=== PATIENT | male | born 1955 | race African-American/Black ===

== ENCOUNTER 2023-03-13 14:16 | Outpatient (AMB) | payer BC, SELFPAY ==
--- NOTE | 2023-03-13 14:21 | HO.NEPHOV_ITS ---
HPI HPI Comments History of Present Illness Details I had the privilege of seeing Alcides in follow-up of his chronic kidney disease on a backdrop of diabetes mellitus, hypertension and proteinuria. He is employed and is active. He has a very strong family history of end-stage renal disease and expressed his fears of needing dialysis. He refrains from nonsteroidal anti-inflammatory use. He does not have any chest pain, shortness of breath, proximal nocturnal dyspnea, orthopnea, pedal edema, orthostatic symptoms, hematuria, dysuria. His blood sugar control is better but not optimal. His last serum creatinine has been around 1.5. He has not had any blood work or a very long time. He claims to be compliant with his medications. He denies any drug use. He maintains good hydration. He denied any active systemic symptoms. [facility] Medical History (Updated 03/13/23 @ 22:12 by Gary Schmidt MD) Hypertension Proteinuria T2DM (type 2 diabetes mellitus) Chronic kidney disease, stage 3a Surgical History (Updated 03/13/23 @ 14:27 by Ju Bautista MA) History of gastric bypass Family History (Updated 03/13/23 @ 14:28 by Ju Bautista MA) Brother Diabetes Kidney disease Mother Diabetes Social History (Updated 03/13/23 @ 14:26 by Ju Bautista MA) Alcohol intake: never Patient Tobacco Use Status: Never used Tobacco Vital Signs 03/13/23 14:22 Height 5 ft 8 in Weight 281 lb 4 oz BMI 42.8 BP 138/72 Blood Pressure Location Lt brachial Position Sitting Pulse 53 Pulse Source Pulse Oximeter Pulse Oximetry (%) 95 Oxygen Delivery Method Room Air Physical Exam Vital Signs: Last Vital Signs Pulse 53 03/13/23 14:22 BP 138/72 03/13/23 14:22 Pulse Ox 95 03/13/23 14:22 Oxygen Delivery Method Room Air 03/13/23 14:22 BMI result Body Mass Index 42.8 Const General: comfortable and no acute distress Orientation/consciousness: patient oriented x3 HEENT Head: Yes normocephalic Mouth: Normal oral and palatal mucosa present Eyes EOM: EOMs intact bilaterally Neck Neck: Yes supple Resp Auscultation: clear to auscultation bilaterally Cardio Jugular venous distension: no JVD Rate: regular rate GI Palpation (GI): Soft to palpation Auscultation: normal bowel sounds General: Yes no CVA tenderness Back/Spine/Pelvis Back: no CVA tenderness Skin General skin exam: no rashes or lesions noted Neuro General: patient oriented x3 and moves all extremities Extrem General: Yes no pedal edema Assessment & Plan Assessment & Plan (1) Hypertension: Code(s): I10 - Essential (primary) hypertension Qualifiers: Hypertension type: primary hypertension Qualified Code(s): I10 - Essential (primary) hypertension (2) Proteinuria: Code(s): R80.9 - Proteinuria, unspecified Qualifiers: Proteinuria type: other Qualified Code(s): R80.8 - Other proteinuria (3) Chronic kidney disease, stage 3a: Code(s): N18.31 - Chronic kidney disease, stage 3a (4) Diabetic nephropathy: Code(s): E11.21 - Type 2 diabetes mellitus with diabetic nephropathy Qualifiers: Diabetes mellitus type: type 2 Qualified Code(s): E11.21 - Type 2 diabetes mellitus with diabetic nephropathy Plan Alcides has stage 3 chronic kidney disease from diabetic nephropathy. His blood pressure needs to be maintained at goal. He is on angiotensin receptor winsome. He is tolerating Jardiance. He needs to lose weight. He avoids nonsteroidal anti-inflammatories. He maintains good hydration. I did not make any medication changes today. Follow-up lab work ordered. Answered all questions. Follow-up given. Orders: Orders Electrolytes Today I10 - Essential (primary) hypertension, N18.31 - Chronic kidney disease, stage 3a, R80.9 - Proteinuria, unspecified Creatinine Today I10 - Essential (primary) hypertension, N18.31 - Chronic kidney disease, stage 3a, R80.9 - Proteinuria, unspecified Protein Creatinine Ratio, Ur Today I10 - Essential (primary) hypertension, N18.31 - Chronic kidney disease, stage 3a, R80.9 - Proteinuria, unspecified Calcium Today I10 - Essential (primary) hypertension, N18.31 - Chronic kidney disease, stage 3a, R80.9 - Proteinuria, unspecified Blood Urea Nitrogen Today I10 - Essential (primary) hypertension, N18.31 - Chronic kidney disease, stage 3a, R80.9 - Proteinuria, unspecified Coding Level of Care Code Est Pt Level 4 (31150) Diagnoses Primary hypertension I10 Hypertension type: primary hypertension Other proteinuria R80.8 Proteinuria type: other Chronic kidney disease, stage 3a N18.31 Diabetic nephropathy associated with type 2 diabetes mellitus E11.21 Diabetes mellitus type: type 2 Results Reviewed Nephrology Results: No Data to Display
[2023-03-13 14:22] VITALS: BP 138/72; PULSE 53; O2SAT 95; BMI 42.8
== END 2023-03-13 14:58 | disposition home or self-care (01) ==
PROVIDERS: Visit Provider Internal Medicine Nephrology
DX: I10 Essential (primary) hypertension (principal); R80.8 Other proteinuria; N18.31 Chronic kidney disease, stage 3a; E11.21 Type 2 diabetes mellitus with diabetic nephropathy
CPT/HCPCS: 99214

== ENCOUNTER → 2023-03-13 14:16 | Outpatient (BNVA) | payer BC, SELFPAY | PROVIDERS: Visit Provider Internal Medicine Nephrology ==

== ENCOUNTER 2023-05-20 15:21 | Outpatient (REF) | payer BC, SELFPAY ==
[2023-05-20 17:32] LABS: Anion Gap 13 (12-20); Blood Urea Nitrogen 21 mg/dL (9-16); Calcium 9.3 mg/dL (8.4-10.2); Carbon Dioxide 26 mmol/L (22-29); Chloride 107 mmol/L (96-108); Estimated Glomerular Filt Rate 56; Potassium 3.9 mmol/L (3.3-5.1); Sodium 142 mmol/L (135-145)
== END 2023-05-20 15:22 | disposition home or self-care (01) ==
LOC: HO.HKASLDS 15:21
PROVIDERS: Visit Provider Internal Medicine Nephrology
DX: I10 Essential (primary) hypertension (principal); R80.9 Proteinuria, unspecified; N18.31 Chronic kidney disease, stage 3a
CPT/HCPCS: 36415; 80051; 82310; 82565; 84520

== ENCOUNTER 2023-06-05 13:57 | Outpatient (REF) | payer BC, SELFPAY ==
[2023-06-05 17:47] LABS: Creatinine Urine 63.98 mg/dL; Total Protein Urine Random 45 mg/dL (<12)
== END 2023-06-05 13:58 | disposition home or self-care (01) ==
LOC: HO.HKASLDS 13:57
PROVIDERS: Visit Provider Internal Medicine Nephrology
DX: I12.9 Hypertensive chronic kidney disease with stage 1 through stage 4 chronic kidney disease, or unspecified chronic kidney disease (principal); N18.31 Chronic kidney disease, stage 3a; R80.9 Proteinuria, unspecified
CPT/HCPCS: 82570; 84156

== ENCOUNTER 2023-07-01 14:47 | Outpatient (AMB) | payer BC, SELFPAY ==
[2023-07-01 14:53] VITALS: BP 138/80; PULSE 74; O2SAT 96; BMI 43.3
--- NOTE | 2023-07-01 14:53 | HO.NEPHOV ---
Vital Signs 07/01/23 14:53 Height 5 ft 8 in Weight 284 lb 8 oz BMI 43.3 BP 138/80 Blood Pressure Location Lt brachial Position Sitting Pulse 74 Pulse Source Pulse Oximeter Pulse Oximetry (%) 96 Oxygen Delivery Method Room Air Intake Visit Reasons: 3 mon follow up/ LVM Costumed Character Entertainer Required: No Accompanied by: Self / Same As Patient Allergies irbesartan Allergy (Verified 07/01/23 14:56) Unknown lactose Allergy (Verified 07/01/23 14:56) Unknown latex Allergy (Verified 07/01/23 14:56) Unknown lisinopril Allergy (Verified 07/01/23 14:56) Unknown naproxen Allergy (Verified 07/01/23 14:56) Unknown HPI Comments Details: I had the privilege of seeing Alcides in follow-up of his chronic kidney disease on a backdrop of diabetes mellitus, hypertension and proteinuria. He is employed and is active. He has a very strong family history of end-stage renal disease and expressed his fears of needing dialysis. He refrains from nonsteroidal anti-inflammatory use. He does not have any chest pain, shortness of breath, proximal nocturnal dyspnea, orthopnea, pedal edema, orthostatic symptoms, hematuria, dysuria. His blood sugar control is better but not optimal. His last serum creatinine has been around 1.5. He has not had any blood work or a very long time. He claims to be compliant with his medications. He denies any drug use. He maintains good hydration. He denied any active systemic symptoms [facility] Medical History (Updated 03/13/23 @ 22:12 by Gary Schmidt MD) Hypertension Proteinuria T2DM (type 2 diabetes mellitus) Chronic kidney disease, stage 3a Surgical History (Updated 03/13/23 @ 14:27 by Ju Bautista MA) History of gastric bypass Family History (Updated 03/13/23 @ 14:28 by Ju Bautista MA) Brother Diabetes Kidney disease Mother Diabetes Social History (Updated 03/13/23 @ 14:26 by Ju Bautista MA) Alcohol intake: never Patient Tobacco Use Status: Never used Tobacco Physical Exam Const General: comfortable and no acute distress Orientation/consciousness: patient oriented x3 HEENT Head: Yes normocephalic Mouth: Normal oral and palatal mucosa present Eyes EOM: EOMs intact bilaterally Neck Neck: Yes supple Resp Auscultation: clear to auscultation bilaterally Cardio Jugular venous distension: no JVD Rate: regular rate GI Palpation (GI): Soft to palpation Auscultation: normal bowel sounds General: Yes no CVA tenderness Back/Spine/Pelvis Back: no CVA tenderness Skin General skin exam: no rashes or lesions noted Neuro General: patient oriented x3 and moves all extremities Extrem General: Yes no pedal edema Results Reviewed Nephrology Results: Sodium 142 mmol/L (135-145) 05/20/23 Potassium 3.9 mmol/L (3.3-5.1) 05/20/23 Chloride 107 mmol/L (96-108) 05/20/23 Carbon Dioxide 26 mmol/L (22-29) 05/20/23 BUN 21 mg/dL (9-16) H 05/20/23 Creatinine 1.28 mg/dL (0.5-1.4) 05/20/23 Calcium 9.3 mg/dL (8.4-10.2) 05/20/23 Urine Creatinine 63.98 mg/dL 06/05/23 Protein/Creatinin Ratio 0.70 (<0.2) H 06/05/23 Assessment & Plan Assessment & Plan (1) Chronic kidney disease, stage 3a: Code(s): N18.31 - Chronic kidney disease, stage 3a Category: Medical (2) Proteinuria: Code(s): R80.9 - Proteinuria, unspecified Category: Medical Qualifiers: Proteinuria type: other Qualified Code(s): R80.8 - Other proteinuria (3) Hypertension: Code(s): I10 - Essential (primary) hypertension Category: Medical Qualifiers: Hypertension type: primary hypertension Qualified Code(s): I10 - Essential (primary) hypertension (4) Diabetic nephropathy: Code(s): E11.21 - Type 2 diabetes mellitus with diabetic nephropathy Category: Medical Qualifiers: Diabetes mellitus type: type 2 Qualified Code(s): E11.21 - Type 2 diabetes mellitus with diabetic nephropathy Plan Alcides has stage 3 chronic kidney disease from diabetic nephropathy. His blood pressure needs to be maintained at goal. He is on angiotensin receptor winsome. He is tolerating Farxiga. He needs to lose weight. I increased his losartan to 75 mg daily. He avoids nonsteroidal anti-inflammatories. He maintains good hydration. I did not make any other medication changes today. Follow-up lab work ordered. Answered all questions. Follow-up given. Orders: Orders Electrolytes Today E11.21 - Type 2 diabetes mellitus with diabetic nephropathy, I10 - Essential (primary) hypertension, N18.31 - Chronic kidney disease, stage 3a, R80.8 - Other proteinuria Blood Urea Nitrogen Today E11.21 - Type 2 diabetes mellitus with diabetic nephropathy, I10 - Essential (primary) hypertension, N18.31 - Chronic kidney disease, stage 3a, R80.8 - Other proteinuria Creatinine Today E11.21 - Type 2 diabetes mellitus with diabetic nephropathy, I10 - Essential (primary) hypertension, N18.31 - Chronic kidney disease, stage 3a, R80.8 - Other proteinuria Medications: New aspirin 81 mg PO DAILY 30 tabs 4RF dapagliflozin propanediol (Farxiga) 10 mg PO DAILY 30 tabs 4RF atorvastatin 40 mg PO DAILY 30 tabs 4RF clopidogrel 75 mg PO DAILY 30 tabs 4RF Changed From amlodipine 10 mg PO DAILY To amlodipine 10 mg PO DAILY 30 days 30 tabs 4RF From furosemide 40 mg PO BID To furosemide 40 mg PO BID 30 days 60 tabs 4RF From losartan 50 mg PO DAILY To losartan 75 mg (1.5 x 50 mg) PO DAILY 30 days 45 tabs 4RF From metoprolol tartrate 100 mg PO BID To metoprolol tartrate 100 mg PO BID 30 days 60 tabs 4RF Coding Level of Care Code Est Pt Level 4 (58898) Diagnoses Chronic kidney disease, stage 3a N18.31 Other proteinuria R80.8 Proteinuria type: other Primary hypertension I10 Hypertension type: primary hypertension Diabetic nephropathy associated with type 2 diabetes mellitus E11.21 Diabetes mellitus type: type 2
== END 2023-07-01 15:18 | disposition home or self-care (01) ==
PROVIDERS: Visit Provider Internal Medicine Nephrology
DX: N18.31 Chronic kidney disease, stage 3a (principal); R80.8 Other proteinuria; I10 Essential (primary) hypertension; E11.21 Type 2 diabetes mellitus with diabetic nephropathy
CPT/HCPCS: 99214

== ENCOUNTER → 2023-07-01 14:47 | Outpatient (BNVA) | payer BC, SELFPAY | PROVIDERS: Visit Provider Internal Medicine Nephrology ==

== ENCOUNTER 2023-10-14 13:42 | Outpatient (AMB) | payer BC, SELFPAY ==
[2023-10-14 13:47] VITALS: BP 130/70; PULSE 59; O2SAT 95
--- NOTE | 2023-10-14 13:47 | HO.NEPHOV ---
Vital Signs 10/14/23 13:47 Weight 282 lb 8 oz BP 130/70 Blood Pressure Location Lt brachial Position Sitting Pulse 59 Pulse Source Pulse Oximeter Pulse Oximetry (%) 95 Oxygen Delivery Method Room Air Intake Visit Reasons: 3 mon follow up- Conf Family Literacy Coordinator Required: No Accompanied by: Self / Same As Patient Allergies irbesartan Allergy (Verified 10/14/23 13:50) Unknown lactose Allergy (Verified 10/14/23 13:50) Unknown latex Allergy (Verified 10/14/23 13:50) Unknown lisinopril Allergy (Verified 10/14/23 13:50) Unknown naproxen Allergy (Verified 10/14/23 13:50) Unknown HPI Comments Details: I had the privilege of seeing Alcides in follow-up of his chronic kidney disease on a backdrop of diabetes mellitus, hypertension and proteinuria. He is employed and is active. He has a very strong family history of end-stage renal disease and expressed his fears of needing dialysis. He refrains from nonsteroidal anti-inflammatory use. He does not have any chest pain, shortness of breath, proximal nocturnal dyspnea, orthopnea, pedal edema, orthostatic symptoms, hematuria, dysuria. His blood sugar control is better but not optimal. His last serum creatinine has been around 1.5. He has not had any blood work or a very long time. He claims to be compliant with his medications. He denies any drug use. He maintains good hydration. He denied any active systemic symptoms [facility] Medical History (Updated 03/13/23 @ 22:12 by Gary Schmidt MD) Hypertension Proteinuria T2DM (type 2 diabetes mellitus) Chronic kidney disease, stage 3a Surgical History History of gastric bypass Family History Brother Diabetes Kidney disease Mother Diabetes Social History Alcohol intake: never Patient Tobacco Use Status: Never used Tobacco Review of Systems Const All systems reviewed & are unremarkable except as noted in HPI and below Physical Exam Const General: comfortable and no acute distress Orientation/consciousness: patient oriented x3 HEENT Head: Yes normocephalic Mouth: Normal oral and palatal mucosa present Eyes EOM: EOMs intact bilaterally Neck Neck: Yes supple Resp Auscultation: clear to auscultation bilaterally Cardio Jugular venous distension: no JVD Rate: regular rate GI Palpation (GI): Soft to palpation Auscultation: normal bowel sounds General: Yes no CVA tenderness Back/Spine/Pelvis Back: no CVA tenderness Skin General skin exam: no rashes or lesions noted Neuro General: patient oriented x3 and moves all extremities Extrem General: Yes no pedal edema Results Reviewed Nephrology Results: Sodium 142 mmol/L (135-145) 05/20/23 Potassium 3.9 mmol/L (3.3-5.1) 05/20/23 Chloride 107 mmol/L (96-108) 05/20/23 Carbon Dioxide 26 mmol/L (22-29) 05/20/23 BUN 21 mg/dL (9-16) H 05/20/23 Creatinine 1.28 mg/dL (0.5-1.4) 05/20/23 Calcium 9.3 mg/dL (8.4-10.2) 05/20/23 Urine Creatinine 63.98 mg/dL 06/05/23 Protein/Creatinin Ratio 0.70 (<0.2) H 06/05/23 Assessment & Plan Assessment & Plan (1) Chronic kidney disease, stage 3a: Code(s): N18.31 - Chronic kidney disease, stage 3a Category: Medical (2) Diabetic nephropathy: Code(s): E11.21 - Type 2 diabetes mellitus with diabetic nephropathy Category: Medical Qualifiers: Diabetes mellitus type: type 2 Qualified Code(s): E11.21 - Type 2 diabetes mellitus with diabetic nephropathy (3) Hypertension: Code(s): I10 - Essential (primary) hypertension Category: Medical Qualifiers: Hypertension type: primary hypertension Qualified Code(s): I10 - Essential (primary) hypertension Plan Alcides has stage 3 chronic kidney disease from diabetic nephropathy. His blood pressure needs to be maintained at goal. He is on angiotensin receptor winsome. He is tolerating Farxiga. He needs to lose weight. I increased his losartan to 100 mg daily. He avoids nonsteroidal anti-inflammatories. He maintains good hydration. I did not make any other medication changes today. Follow-up lab work ordered. Answered all questions. Follow-up given Orders: Orders Blood Urea Nitrogen Today E11.21 - Type 2 diabetes mellitus with diabetic nephropathy, I10 - Essential (primary) hypertension, N18.31 - Chronic kidney disease, stage 3a Creatinine Today E11.21 - Type 2 diabetes mellitus with diabetic nephropathy, I10 - Essential (primary) hypertension, N18.31 - Chronic kidney disease, stage 3a Electrolytes Today E11.21 - Type 2 diabetes mellitus with diabetic nephropathy, I10 - Essential (primary) hypertension, N18.31 - Chronic kidney disease, stage 3a Coding Level of Care Code Est Pt Level 4 (55550) Diagnoses Chronic kidney disease, stage 3a N18.31 Diabetic nephropathy associated with type 2 diabetes mellitus E11.21 Diabetes mellitus type: type 2 Primary hypertension I10 Hypertension type: primary hypertension
== END 2023-10-14 14:14 | disposition home or self-care (01) ==
PROVIDERS: Visit Provider Internal Medicine Nephrology
DX: N18.31 Chronic kidney disease, stage 3a (principal); E11.21 Type 2 diabetes mellitus with diabetic nephropathy; I10 Essential (primary) hypertension
CPT/HCPCS: 99214

== ENCOUNTER → 2023-10-14 13:42 | Outpatient (BNVA) | payer BC, SELFPAY | PROVIDERS: Visit Provider Internal Medicine Nephrology | DX: E11.21 Type 2 diabetes mellitus with diabetic nephropathy (principal); I10 Essential (primary) hypertension; R80.8 Other proteinuria; N18.31 Chronic kidney disease, stage 3a ==

== ENCOUNTER 2023-10-14 14:06 | Outpatient (REF) | payer BC, SELFPAY ==
[2023-10-14 18:22] LABS: Anion Gap 12 (12-20); Blood Urea Nitrogen 21 mg/dL (9-16); Carbon Dioxide 27 mmol/L (22-29); Chloride 106 mmol/L (96-108); Estimated Glomerular Filt Rate 50; Potassium 4.1 mmol/L (3.3-5.1); Sodium 141 mmol/L (135-145)
== END 2023-10-14 14:07 | disposition home or self-care (01) ==
LOC: HO.HKASLDS 14:06
PROVIDERS: Visit Provider Internal Medicine Nephrology
DX: E11.21 Type 2 diabetes mellitus with diabetic nephropathy (principal); I12.9 Hypertensive chronic kidney disease with stage 1 through stage 4 chronic kidney disease, or unspecified chronic kidney disease; R80.8 Other proteinuria; N18.31 Chronic kidney disease, stage 3a
CPT/HCPCS: 36415; 80051; 82565; 84520

== ENCOUNTER 2024-01-13 10:16 | Outpatient (AMB) | payer BC, SELFPAY ==
--- NOTE | 2024-01-13 10:20 | HO.NEPHOV ---
Vital Signs 01/13/24 10:26 Height 5 ft 8 in Weight 287 lb BMI 43.6 BP 130/70 Blood Pressure Location Lt brachial Position Sitting Pulse 73 Pulse Source Pulse Oximeter Pulse Oximetry (%) 97 Oxygen Delivery Method Room Air Intake Visit Reasons: 3 mon follow up/ Conf Experience Planning Strategist Required: No Accompanied by: Self / Same As Patient Allergies irbesartan Allergy (Verified 01/13/24 10:) Unknown lactose Allergy (Verified 01/13/24 10:) Unknown latex Allergy (Verified 01/13/24 10:) Unknown lisinopril Allergy (Verified 01/13/24 10:) Unknown naproxen Allergy (Verified 01/13/24 10:) Unknown HPI Comments Details: I had the privilege of seeing Alcides in follow-up of his chronic kidney disease on a backdrop of diabetes mellitus, hypertension and proteinuria. He is employed and is active. He has a very strong family history of end-stage renal disease and expressed his fears of needing dialysis. He refrains from nonsteroidal anti-inflammatory use. He does not have any chest pain, shortness of breath, proximal nocturnal dyspnea, orthopnea, pedal edema, orthostatic symptoms, hematuria, dysuria. His blood sugar control is better but not optimal. He had an episode of gout and was treated with colchicine. He claims to be compliant with his medications. He maintains good hydration. He denied any active systemic symptoms [facility] Medical History (Updated 03/13/23 @ 22:12 by Gary Schmidt MD) Hypertension Proteinuria T2DM (type 2 diabetes mellitus) Chronic kidney disease, stage 3a Surgical History History of gastric bypass Family History Brother Diabetes Kidney disease Mother Diabetes Social History Alcohol intake: never Patient Tobacco Use Status: Never used Tobacco Review of Systems Const All systems reviewed & are unremarkable except as noted in HPI and below Physical Exam Vital Signs: Last Vital Signs Pulse 73 01/13/24 10:26 BP 130/70 01/13/24 10:26 Pulse Ox 97 01/13/24 10:26 Oxygen Delivery Method Room Air 01/13/24 10:26 BMI result Body Mass Index 43.6 Const General: comfortable and no acute distress Orientation/consciousness: patient oriented x3 HEENT Head: Yes normocephalic Mouth: Normal oral and palatal mucosa present Eyes EOM: EOMs intact bilaterally Neck Neck: Yes supple Resp Auscultation: clear to auscultation bilaterally Cardio Jugular venous distension: no JVD Rate: regular rate GI Palpation (GI): Soft to palpation Auscultation: normal bowel sounds General: Yes no CVA tenderness Back/Spine/Pelvis Back: no CVA tenderness Skin General skin exam: no rashes or lesions noted Neuro General: patient oriented x3 and moves all extremities Extrem General: Yes no pedal edema Results Reviewed Nephrology Results: Sodium 141 mmol/L (135-145) 10/14/23 Potassium 4.1 mmol/L (3.3-5.1) 10/14/23 Chloride 106 mmol/L (96-108) 10/14/23 Carbon Dioxide 27 mmol/L (22-29) 10/14/23 BUN 21 mg/dL (9-16) H 10/14/23 Creatinine 1.40 mg/dL (0.5-1.4) 10/14/23 Calcium 9.3 mg/dL (8.4-10.2) 05/20/23 Urine Creatinine 63.98 mg/dL 06/05/23 Protein/Creatinin Ratio 0.70 (<0.2) H 06/05/23 Assessment & Plan Assessment & Plan (1) Chronic kidney disease, stage 3a: Code(s): N18.31 - Chronic kidney disease, stage 3a Category: Medical (2) Proteinuria: Code(s): R80.9 - Proteinuria, unspecified Category: Medical Qualifiers: Proteinuria type: other Qualified Code(s): R80.8 - Other proteinuria (3) Hypertension: Code(s): I10 - Essential (primary) hypertension Category: Medical Qualifiers: Hypertension type: primary hypertension Qualified Code(s): I10 - Essential (primary) hypertension (4) Diabetic nephropathy: Code(s): E11.21 - Type 2 diabetes mellitus with diabetic nephropathy Category: Medical Qualifiers: Diabetes mellitus type: type 2 Qualified Code(s): E11.21 - Type 2 diabetes mellitus with diabetic nephropathy Plan Alcides has stage 3 chronic kidney disease from diabetic nephropathy. His blood pressure needs to be maintained at goal. He is on angiotensin receptor winsome. He is tolerating Farxiga. He needs to lose weight. He is on ARB. He avoids nonsteroidal anti-inflammatories. He maintains good hydration. I did not make any other medication changes today. Follow-up lab work ordered. Answered all questions. Follow-up given Orders: Orders Creatinine 4 Months E11.21 - Type 2 diabetes mellitus with diabetic nephropathy, I10 - Essential (primary) hypertension, N18.31 - Chronic kidney disease, stage 3a, R80.8 - Other proteinuria Blood Urea Nitrogen 4 Months E11. - Type 2 diabetes mellitus with diabetic nephropathy, I10 - Essential (primary) hypertension, N18.31 - Chronic kidney disease, stage 3a, R80.8 - Other proteinuria Electrolytes 4 Months E11. - Type 2 diabetes mellitus with diabetic nephropathy, I10 - Essential (primary) hypertension, N18.31 - Chronic kidney disease, stage 3a, R80.8 - Other proteinuria Coding Level of Care Code Est Pt Level 4 (58699) Diagnoses Chronic kidney disease, stage 3a N18.31 Other proteinuria R80.8 Proteinuria type: other Primary hypertension I10 Hypertension type: primary hypertension Diabetic nephropathy associated with type 2 diabetes mellitus . Diabetes mellitus type: type 2
[2024-01-13 10:26] VITALS: BP 130/70; PULSE 73; O2SAT 97; BMI 43.6
== END 2024-01-13 10:53 | disposition home or self-care (01) ==
PROVIDERS: Visit Provider Internal Medicine Nephrology
DX: N18.31 Chronic kidney disease, stage 3a (principal); R80.8 Other proteinuria; I10 Essential (primary) hypertension; E11.21 Type 2 diabetes mellitus with diabetic nephropathy
CPT/HCPCS: 99214

== ENCOUNTER 2024-05-11 13:56 | Outpatient (AMB) | payer BC, SELFPAY ==
--- NOTE | 2024-05-11 14:17 | HO.NEPHOV ---
Vital Signs 05/11/24 14:21 Height 5 ft 8 in Weight 288 lb 6 oz BMI 43.8 BP 102/62 Blood Pressure Location Lt brachial Position Sitting Intake Visit Reasons: 4mon follow up-w/labs-Conf Flying I Instructor Required: No Accompanied by: Self / Same As Patient Allergies irbesartan Allergy (Verified 05/11/24 14:21) Unknown lactose Allergy (Verified 05/11/24 14:21) Unknown latex Allergy (Verified 05/11/24 14:21) Unknown lisinopril Allergy (Verified 05/11/24 14:21) Unknown naproxen Allergy (Verified 05/11/24 14:21) Unknown HPI Comments Details: Alcides was seen in follow-up of his chronic kidney disease on a backdrop of diabetes mellitus, hypertension and proteinuria. He is employed and is active. He has a very strong family history of end-stage renal disease and expressed his fears of needing dialysis. He refrains from nonsteroidal anti-inflammatory use. He does not have any chest pain, shortness of breath, proximal nocturnal dyspnea, orthopnea, pedal edema, orthostatic symptoms, hematuria, dysuria. His blood sugar control is better but not optimal. He has H/O of gout and was treated with colchicine. He claims to be compliant with his medications. He maintains good hydration. He denied any active systemic symptoms [facility] Medical History (Updated 03/13/23 @ 22:12 by Gary Schmidt MD) Hypertension Proteinuria T2DM (type 2 diabetes mellitus) Chronic kidney disease, stage 3a Surgical History History of gastric bypass Family History Brother Diabetes Kidney disease Mother Diabetes Social History Alcohol intake: never Patient Tobacco Use Status: Never used Tobacco Review of Systems Const All systems reviewed & are unremarkable except as noted in HPI and below Physical Exam Const General: comfortable and no acute distress Orientation/consciousness: patient oriented x3 HEENT Head: Yes normocephalic Mouth: Normal oral and palatal mucosa present Eyes EOM: EOMs intact bilaterally Neck Neck: Yes supple Resp Auscultation: clear to auscultation bilaterally Cardio Jugular venous distension: no JVD Rate: regular rate GI Palpation (GI): Soft to palpation Auscultation: normal bowel sounds Neuro General: patient oriented x3 and moves all extremities Extrem General: Yes no pedal edema Assessment & Plan Assessment & Plan (1) Diabetic nephropathy: Code(s): E11.21 - Type 2 diabetes mellitus with diabetic nephropathy Category: Medical Qualifiers: Diabetes mellitus type: type 2 Qualified Code(s): E11.21 - Type 2 diabetes mellitus with diabetic nephropathy (2) Hypertension: Code(s): I10 - Essential (primary) hypertension Category: Medical Qualifiers: Hypertension type: primary hypertension Qualified Code(s): I10 - Essential (primary) hypertension (3) Chronic kidney disease, stage 3a: Code(s): N18.31 - Chronic kidney disease, stage 3a Category: Medical Plan Alcides has stage 3 chronic kidney disease from diabetic nephropathy. His blood pressure needs to be maintained at goal. He is on angiotensin receptor winsome. He is tolerating Farxiga. He needs to lose weight. He is on ARB. He avoids nonsteroidal anti-inflammatories. He maintains good hydration. I did not make any other medication changes today. Follow-up lab work ordered. Answered all questions. Follow-up given Orders: Orders Electrolytes 3 Months E11.21 - Type 2 diabetes mellitus with diabetic nephropathy, I10 - Essential (primary) hypertension, N18.31 - Chronic kidney disease, stage 3a Electrolytes Today E11.21 - Type 2 diabetes mellitus with diabetic nephropathy, I10 - Essential (primary) hypertension, N18.31 - Chronic kidney disease, stage 3a Creatinine 3 Months E11.21 - Type 2 diabetes mellitus with diabetic nephropathy, I10 - Essential (primary) hypertension, N18.31 - Chronic kidney disease, stage 3a Blood Urea Nitrogen 3 Months E11.21 - Type 2 diabetes mellitus with diabetic nephropathy, I10 - Essential (primary) hypertension, N18.31 - Chronic kidney disease, stage 3a Blood Urea Nitrogen Today E11.21 - Type 2 diabetes mellitus with diabetic nephropathy, I10 - Essential (primary) hypertension, N18.31 - Chronic kidney disease, stage 3a Creatinine Today E11.21 - Type 2 diabetes mellitus with diabetic nephropathy, I10 - Essential (primary) hypertension, N18.31 - Chronic kidney disease, stage 3a Protein Creatinine Ratio, Ur Today E11.21 - Type 2 diabetes mellitus with diabetic nephropathy, I10 - Essential (primary) hypertension, N18.31 - Chronic kidney disease, stage 3a Coding Level of Care Code Est Pt Level 4 (42841) Diagnoses Diabetic nephropathy associated with type 2 diabetes mellitus E11.21 Diabetes mellitus type: type 2 Primary hypertension I10 Hypertension type: primary hypertension Chronic kidney disease, stage 3a N18.31
[2024-05-11 14:21] VITALS: BP 102/62; BMI 43.8
--- OUTSIDE RECORDS SUMMARY | 2024-05-11 16:37 | XMS_ITS | Clinical Summary ---
Author Organization [facility] Address [address] [place] [address] Care Team Providers Care Denture Technician Name Role Phone Yunier Nunes Primary Care Provider [phone] Source Comments PLEASE NOTE, if this patient is a minor, it may be UNLAWFUL to discuss sensitive information that is contained in these records (such as FAMILY PLANNING, MENTAL HEALTH or SUBSTANCE ABUSE) with the minor patient's parent or other person without the patient's specific authorization.[facility] Allergies Active Allergy Reactions Criticality Noted Date Comments Irbesartan 05/07/2021 Lactose 05/07/2021 Latex 05/07/2021 Lisinopril 05/07/2021 Milk Containing Products (Dairy) 06/2013 Naproxen Swelling 10/08/2011 Medications dapagliflozin propanediol 10 mg tab Take 10 mg by mouth once daily Active atorvastatin (LIPITOR) 40 mg tablet Take 40 mg by mouth once daily 07/01/19 24 Active losartan (COZAAR) 50 mg tablet Take 75 mg by mouth once daily Active metoprolol tartrate (LOPRESSOR) 100 mg tablet TAKE 1 TABLET BY MOUTH 2 TIMES A DAY FOR 30 DAYS 08/15/19 24 Active amLODIPine (NORVASC) 10 mg tablet Take 10 mg by mouth once daily Active tobramycin-dexa methasone (TOBRADEX) 0.3-0.1 % ophthalmic susp INSTILL 1 DROP INTO BOTH EYES 3 TIMES A DAY 07/16/19 24 Active INSULIN LISPRO SUBQ Inject into the skin Active furosemide (LASIX) 40 mg tablet Take 40 mg by mouth 2 (two) times daily Active aspirin [address] tablet Take 81 mg by mouth once daily Active clopidogreL (PLAVIX) 75 mg tablet Take 75 mg by mouth once daily 07/01/19 24 Active BD ULTRA-FINE MICRO PEN NEEDLE 32 gauge x 1/4 ndle USE DIRECTED FOR USE WITH INSULIN PEN 3 TIMES DAILYStrength: 32 gauge x 1/4 100 Each 10/21/19 24 Active DEXCOM G6 SENSOR [place] USE DIRECTED FOR GLUCOSE MONITORING 2 Each 10/21/19 24 Active DEXCOM G6 TRANSMITTER [place] Use to test blood sugar as directed.Use to test blood sugar as directed. 2 Each 10/21/19 24 Active NOVOLOG FLEXPEN U-100 INSULIN 100 unit/mL (3 mL) Inject 2-20 units TID according to sliding scale. 15 mL 10/21/19 24 Active TRULICITY 1.5 mg/0.5 mL pen injectorIndicat ions:Type 2 diabetes mellitus without complication, with long-term current use of insulin ([facility]) Inject 1.5 mg into the skin once a week 5 mL 10/21/19 24 Active coffee xt-phosphatidyl serine (NOOTROPIC COFFEE-PS) 100-100 mg capIndications: Memory changes Take one tablet daily for mental accuity 90 Capsule 1 01/15/20 24 Active tirzepatide (MOUNJARO) 2.5 mg/0.5 mL pnijIndications :Body mass index (BMI) 45.0-49.9, adult ([facility]),Moder ate binge-eating disorder,Morbid obesity with body mass index of 45.0-49.9 in adult ([facility]),Type 2 diabetes mellitus with stage 3b chronic kidney disease, with long-term current use of insulin ([facility]) INJECT 2.5 MG SUBCUTANEOUSLY WEEKLY 2 mL 2 02/11/19 25 Active tadalafiL (CIALIS) 20 mg tablet TAKE 1 TABLET BY MOUTH EVERY DAY NEEDED 10 Tablet 1 02/22/19 25 Active testosterone (ANDROGEL) 20.25 mg/1.25 gram (1.62 %) gel pump 4 PUMP(S) APPLIED TOPICALLY ONCE A DAY (IN THE MORNING) 75 g 4 04/04/19 25 Active tirzepatide (MOUNJARO) 5 mg/0.5 mL pnijIndications :Body mass index (BMI) 45.0-49.9, adult ([facility]),Type 2 diabetes mellitus with stage 3b chronic kidney disease, with long-term current use of insulin ([facility]),Moder ate binge-eating disorder Inject 5 mg into the skin once a week 2 mL 04/29/19 25 Active Active Problems Problem Noted Date Diagnosed Date Severe obesity ([facility]) 04/28/2024 Morbid obesity with body mas s index of 45.0-49.9 in adult ([facility]) 09/22/2023 Chronic kidney disease, stage 3a ([facility]) 05/29 Generalized edema 05/29/2021 Microalbuminuria 05/29/2021 Nephrolithiasis 05/29/2021 Binge eating disorder 05/07/2021 Body mass index (BMI) 45.0-49.9, adult ([facility]) 05/07/2021 Coronary arteriosclerosis 05/07/2021 Diabetes mellitus type 2 ([facility]) 05/07/2021 Diastolic heart failure ([facility]) 05/17/2020 Overview (04/28/2024): Last Assessment & Plan: Appears euvolemic, has no new or worsening symptoms. He currently takes Lasix 20mg BID, toelrating this well. Reviewed signs and symptoms of heart failure and educated regarding monitoring weight, diet, and fluid intake. If there is a weight gain of 3 pounds in one day or 5 pounds in a week please call our office or seek medical attention if necessary. CKD (chronic kidney disease) stage 2, GFR 60-89 ml/min 04/29/2017 Overview (04/28/2024): Dr Dietz Essential hypertension 05/23/2016 Overview (04/28/2024): Last Assessment & Plan: Controlled NSTEMI (non-ST elevated myocardial infarction) ( [facility]) 05/13/2016 Overview (04/28/2024): 04/2016--s/p PCI with KAYKAY to posterolateral branch of LCX Depression 03/11/2016 Hepatomegaly 06/09/2015 Phimosis 04/09/2014 DJD (degenerative joint disease) of knee 013 Leg edema, right 05/29/2012 Overview (04/28/2024): Negative venous ultrasound 2010 Venous stasis 05/29/2012 Sleep apnea 2011 History of myocardial infarction 06/25/2010 Overview (04/28/2024): NSTEMI 06/2010, 95% stenosis circumflex, bare metal stent--Dr. Khan Last Assessment & Plan: Has chronic dyspnea with exertion, weight has increased, planning on going for bariatric surgery in the near future. Nuclear stress test done within the year no ischemia noted, symptoms have not worsened. Continue ASA, BB, statin Achilles tendon tear 03/23/2010 Overview (04/28/2024): 2010 Amputation finger 03/23/2010 Colon polyp 03/23/2010 Overview (04/28/2024): By colonoscopy 2005, Dr Viveros, inflammatory, not neoplastic. Next CN due 2015. Erectile dysfunction 03/23/2010 Onychomycosis 07/07/2007 Hyperlipidemia 05/07/2005 Overview (04/28/2024): Last Assessment & Plan: No recent Lipid panel this should be updated, continue statin Encounters Date Type Department Care Team Description 04/28/2024 3:20 PM EDT Office Visit [facility] [phone] [place] [address] Yunier Nunes PA Sleep apnea, unspecified type (Primary Dx); Body mass index (BMI) 45.0-49.9, adult ([facility]); Type 2 diabetes mellitus with stage 3b chronic kidney disease, with long-term current use of insulin ([facility]); Morbid obesity with body mass index of 45.0-49.9 in adult ([facility]); Benign prostatic hyperplasia with nocturia; Moderate binge-eating disorder from Last 3 Months Immunizations Immunization Administration Dates Next Due Flu, Adjuvant, 65y+ (Fluad) 11/23/2020 Flu, Cell Culture based, Pre servative Free, 6m+, Flucelvax 11/13/2018 Flu, High Dose, 65y+, Fluzon e High Dose 11/20/2021 Flu, Preservative Free 11/05/2017 INFLUENZA, SEASONAL, INJECTABLE 02/15/19 17,12/15/2013,12/03/2012,12/25,11/02/2009,12/21/2007 Influenza (FLUZONE), high-do se, trivalent, PF 12/10/2023 PNEUMOCOCCAL POLYSACCHARIDE PPV23 05/31/2003 TDAP 03/10/2017 Td (adult) unspecified 05/31/2003 ZOSTER VACCINE, RECOMBINANT (SHINGRIX) 2,04/13/2021 Social History Tobacco Use Types Packs/Day Years Used Date Smoking Tobacco: Never Smokeless Tobacco: Never Tobacco Cessation:Counseling Given: Not Answered Alcohol Use Standard Drinks/Week Comments Never 0 (1 standard drink = 0.6 oz pur e alcohol) Social Connections Answer Date Recorded Connectedness 0 10/23/2023 Financial Resource Strain Answer Date R ecorded Financial Resource Strain 0 2023 Stress Answer Date Recorded Stress 0 06/18/2023 Physical Activity Answer Date Recorded Physical Activity 0 06/18/2023 Food Insecurity Answer Date Recorded Food 0 11/06/2023 Transportation Needs Answer Date Record ed Transportation 0 06/18/2023 Housing Stability Answer Date Recorded Housing 0 06/18/2023 Safety and Environment Answer Date Lev rded Safety 0 06/18/2023 Utilities Answer Date Recorded Utilities 0 06/18/2023 Employment Answer Date Recorded Stress 0 10/23/2023 Sex and Gender Information Value Date Recorded Sex Assigned at Male 09/22/2023 8:20 AM PDT Legal Sex Male 11:48 AM PDT Gender Identity Male 09/22/2023 8:20 AM PDT Sexual Orientation Straight 09/22/2023 8: 20 AM PDT Last Filed Vital Signs Vital Sign Reading Time Taken Comments Blood Pressure 136/82 04/28/2024 3:09 PM EDT Pulse 88 04/28/2024 3:09 PM EDT Temperature 36.8 ??C (98.2 ??F) 04/28/2024 3:09 PM ED T Respiratory Rate 16 04/28/2024 3:09 PM EDT Oxygen Saturation 100% 04/28/2024 3:09 PM EDT Inhaled Oxygen Concentration - - Weight 130.2 kg (287 lb) 04/28/2024 3:09 PM EDT Height 172.7 cm (5' 8 ) 04/28/2024 3:09 PM EDT Body Mass Index 43.64 04/28/2024 3:09 PM EDT Plan of Treatment Health Maintenance Due Date Last Done Comments Dental Examination [address] CT Colonography 06/29/1999 Flexible Sigmoidoscopy 06/29/1999 Imm-Pneumococcal 65+ (2 of 2 - PCV) 05/30/2004 05/31/2003 Urine Albumin Creatinine Rat io Screening 10/10/2022 10/10/2021, 05/07/2021 Depression Monitoring 12/23/2023 09/22/2023 Alcohol and Drug Screen 02/11/2024 09/22/2023 [id number] ( season) 2024 12/10/2023, 01/27/2023, 11/20/2021, Additional history exists Diabetes Foot Exam 09/21/2024 09/22/2023 Falls Prevention 09/21/2024 09/22/2023 Lipid Screening 09/21/2024 09/22/2023, 03/10/2017 Retinopathy Screening 10/14/2024 10/15/2023 FIT/gFOBT 10/20/2024 10/21/2023 Diabetes HbA1c 10/29/2024 04/28/2024, 12/0 06/2023, 09/22/2023, Additional history exists Serum Creatinine 01/06/2025 01/07/2024, 01/2024, 10/10/2021 Tobacco Screening 01/14/2025 01/15/2024, 09/22/2023 Annual Preventive Care Visit 04/28/2025 04/28/2024, 09/22/2023 Fecal DNA 10/20/2026 10/21/2023 Imm-DTaP/Tdap/Td (2 - Td or Tdap) 03/10/2027 018, 05/31/2003 Colonoscopy 03/11/2034 03/11/2024 Colorectal Cancer Screening 03/11/2034 Imm-Zoster, Recombinant Completed 07/30/2021, 04/13 Hepatitis C Screening Completed 09/22/2023 Imm-Influenza Completed 12/10/2023, 11/10, 11/23/2020, Additional history exists Procedures Procedure Name Priority Date/Time Associated Diagnosis Comments HGBA1C W/MPG Routine 04/28/2024 3:33 PM EDT Type 2 diabetes mellitus with stage 3b chronic kidney disease, with long-term current use of insulin ([facility]) HISTORIC COLONOSCOPY 03/11/2024 3:00 AM EST COLOGUARD Routine 10/21/2023 3:00 AM EDT Encounter for colorectal cancer screening using Cologuard test EYE EXAM 10/15/2023 3:00 AM EDT COMPREHENSIVE METABOLIC PANEL Routine 09/22/2023 11:35 AM EDT Body mass index (BMI) 45.0-49.9, adult ([facility]) Morbid obesity with body mass index of 45.0-49.9 in adult ([facility]) Binge eating disorder Chronic kidney disease, stage 3a ([facility]) Coronary arteriosclerosis Generalized edema History of non-ST elevation myocardial infarction (NSTEMI) Hypercholesterolemi a Hypertension, unspecified type Microalbuminuria Nephrolithiasis Obstructive sleep apnea syndrome Type 2 diabetes mellitus with other circulatory complication, without long-term current use of insulin ([facility]) Routine adult health maintenance Encounter for colorectal cancer screening using Cologuard test HEPATITIS C AB W/RFLX HCV RNA, QT, RT PCR Routine 09/22/2023 11:35 AM EDT Body mass index (BMI) 45.0-49.9, adult ([facility]) Morbid obesity with body mass index of 45.0-49.9 in adult ([facility]) Binge eating disorder Chronic kidney disease, stage 3a ([facility]) Coronary arteriosclerosis Generalized edema History of non-ST elevation myocardial infarction (NSTEMI) Hypercholesterolemi a Hypertension, unspecified type Microalbuminuria Nephrolithiasis Obstructive sleep apnea syndrome Type 2 diabetes mellitus with other circulatory complication, without long-term current use of insulin ([facility]) Routine adult health maintenance Encounter for colorectal cancer screening using Cologuard test LIPID PANEL Routine 09/22/2023 11:35 AM EDT Body mass index (BMI) 45.0-49.9, adult ([facility]) Morbid obesity with body mass index of 45.0-49.9 in adult ([facility]) Binge eating disorder Chronic kidney disease, stage 3a ([facility]) Coronary arteriosclerosis Generalized edema History of non-ST elevation myocardial infarction (NSTEMI) Hypercholesterolemi a Hypertension, unspecified type Microalbuminuria Nephrolithiasis Obstructive sleep apnea syndrome Type 2 diabetes mellitus with other circulatory complication, without long-term current use of insulin ([facility]) Routine adult health maintenance Encounter for colorectal cancer screening using Cologuard test from Last 3 Months or Most Recently Relevant to Health Maintenance Results * (ABNORMAL) HGBA1C W/MPG (04/28/2024 3:33 PM EDT) HEMOGLOBIN A1C 7.3(H) <5.7 % of total Hgb [facility] Comment: For someone without known diabetes, a hemoglobin A1c value of 6.5% or greater indicates that they may have diabetes and this should be confirmed with a follow-up test. For someone with known diabetes, a value <7% indicates that their diabetes is well controlled and a value greater than or equal to 7% indicates suboptimal control. A1c targets should be individualized based on duration of diabetes, age, comorbid conditions, and other considerations. Currently, no consensus exists regarding use of hemoglobin A1c for diagnosis of diabetes for children. ?? MEAN PLASMA GLUCOSE 183 mg/dL (calc) [facility] Blood Blood / Unknown 04/28/2024 3 :33 PM EDT 04/28/2024 3:34 PM EDT Narrative [facility] - 04/29/2024 3:13 AM EDT FASTING:NO us Yunier [facility] - BLOOD DRAW Final Result [facility] [address] [address], [facility] [address] [place] [id number] * HISTORIC COLONOSCOPY (03/11/2024 3:00 AM EST) 03/11/2024 3:00 AM EST us Yunier [facility] PROCEDURES Final Result * COLOGUARD (10/21/2023 3:00 AM EDT) Stool Stool specimen / Unknown 10/21/2023 3:00 AM EDT us Yunier [facility] - NO BLOOD DRAW Edited Res ult - Final Performing Organization Address City/[facility]/ZIP Co de Phone Number [facility] [employer] [address] [facility], [address] [facility] [id number] [place] [address], * EYE EXAM (10/15/2023 3:00 AM EDT) 10/15/2023 3:00 AM EDT us Yunier [facility] OTHER Edited Result - Final * HEPATITIS C AB W/RFLX HCV RNA, QT, RT PCR (09/22/2023 11:35 AM EDT) HEPATITIS C ANTIBODY NON-REACT JULIEN NON-REACT JULIEN [facility] Comment: HCV antibody was non-reactive. There is no laboratory evidence of HCV infection. In most cases, no further action is required. However, if recent HCV exposure is suspected, a test for HCV RNA (test code 12646) is suggested. For additional information please refer to http://education.haystagg/faq/JSI93k7 (This link is being provided for informational/ educational purposes only.) Blood Blood / Unknown 09/22/2023 1 1:35 AM EDT 09/22/2023 11:35 AM EDT us Y[facility]ier [facility] - BLOOD DRAW Final Result Performing Organization Address [facility]/ZIP Co de Phone Number [employer] [address] [address], [employer] [address] [address] * (ABNORMAL) LIPID PANEL (09/22/2023 11:35 AM EDT) CHOLESTEROL, TOTAL 131 <200 mg/dL [facility] HDL CHOLESTEROL 39(L) > OR = 40 mg/dL [facility] TRIGLYCERIDES 75 <150 mg/dL [facility] LDL-CHOLESTEROL 76 99 mg/dL (calc) [facility] Comment: Reference range: <100 Desirable range <100 mg/dL for primary prevention; ?? <70 mg/dL for patients with CHD or diabetic patients with > or = 2 CHD risk factors. LDL-C is now calculated using the Brianna calculation, which is a validated novel method providing better accuracy than the Friedewald equation in the estimation of LDL-C. Art VANG et al. RAUL. 2013;310(19): 9137-9255 (http://education.[employer]/faq/MWX304) CHOL/HDLC RATIO 3.4 <5.0 (calc) [facility] NON-HDL CHOLESTEROL 92 <130 mg/dL (calc) [facility] Comment: For patients with diabetes plus 1 major ASCVD risk factor, treating to a non-HDL-C goal of <100 mg/dL (LDL-C of <70 mg/dL) is considered a therapeutic option. Blood Blood / Unknown 09/22/2023 1 1:35 AM EDT 09/22/2023 11:35 AM EDT [facility] - BLOOD DRAW Final Result [facility] [address] [place] [id number], [email or web address] [address] [address] * (ABNORMAL) COMPREHENSIVE METABOLIC PANEL (09/22/2023 11:35 AM EDT) GLUCOSE 221(H) 65 - 99 mg/dL [facility] Comment: ?Fasting reference interval For someone without known diabetes, a glucose value >125 mg/dL indicates that they may have diabetes and this should be confirmed with a follow-up test. UREA NITROGEN (BUN) 35(H) 7 - 25 mg/dL [facility] CREATININE (blood) 1.52(H) 0.70 - 1.35 mg/dL [facility] EGFR 49(L) > OR = 60 mL/min/1. 73m2 [email or web address] [facility] BUN/CREATININE RATIO 23(H) 6 - 22 (calc) [email or web address] [facility] SODIUM 138 135 - 146 mmol/L [email or web address] POTASSIUM 4.7 3.5 - 5.3 mmol/L [email or web address] CHLORIDE 101 98 - 110 mmol/L [email or web address] CARBON DIOXIDE 29 20 - 32 mmol/L [email or web address] CALCIUM 10.3 8.6 - 10.3 mg/dL [email or web address] PROTEIN, TOTAL 7.4 6.1 - 8.1 g/dL [email or web address] ALBUMIN 4.1 3.6 - 5.1 g/dL [email or web address] GLOBULIN 3.3 1.9 - 3.7 g/dL (calc) [email or web address] [facility] ALBUMIN/GLOBULI N RATIO 1.2 1.0 - 2.5 (calc) [email or web address] [facility] BILIRUBIN, TOTAL 0.5 0.2 - 1.2 mg/dL [email or web address] ALKALINE PHOSPHATASE 100 35 - 144 U/L [email or web address] AST 17 10 - 35 U/L [email or web address] ALT 18 9 - 46 U/L [email or web address] Blood Blood / Unknown 09/22/2023 1 1:35 AM EDT 09/22/2023 11:35 AM EDT us [facility] - BLOOD DRAW Edited Result - Final [email or web address] [address] [address], [email or web address] [address] [address] from Last 3 Months or Most Recently Relevant to Health Maintenance Insurance [employer] Member Subscriber Plan / Payer (Ef fective 2022-Present) Name:Alcides Patel Relation to Subscriber:Self Name:Amanda Alcides Payer ID:[id number] Type:Indemnity Address: [id number] [place] [address] Care Teams Denture Technician Relationship Specialty Start Date End Date Yunier Nunes PA [address] [place] [address] PCP - General FAMILY MEDICINE, [place] 09/19/23
--- OUTSIDE RECORDS SUMMARY | 2024-05-11 16:37 | XMS_ITS | Clinical Summary ---
Author Organization [facility] Address [address] [place] [address] Phone Care Team Providers Care Aerial Installer Name Role Phone Yunier Nunes Primary Care Provider Allergies Active Allergy Reactions Criticality Noted Date Comments Lactose 05/07/2021 Milk Containing Products (Dairy) 06/2013 Naproxen Swelling 10/08/2011 Medications colchicine (COLCRYS) 0.6 mg tablet Take 0.5 tablets (0.3 mg total) by mouth 1 (one) time each day. 15 each 11 4 12/25/19 25 Active atorvastatin (LIPITOR) 40 mg tablet Take 40 mg by mouth daily. Active furosemide (LASIX) 40 mg tablet Take 40 mg by mouth daily. Active blood sugar diagnostic (FreeStyle Lite Strips) test strip USE 1 STRIP 4 TIMES DAILY DIRECTED 8 Active insulin lispro (HumaLOG KwikPen Insulin) 100 unit/mL injection pen Inject 50 Units as directed 3 times daily (before meals). 8 Active dulaglutide (Trulicity) 1.5 mg/0.5 mL pen injector injection Inject 1.5 mg into the skin once a week. 8 Active aspirin 81 mg EC tablet TAKE 1 TABLET BY MOUTH DAILY 8 Active amLODIPine (NORVASC) 10 mg tablet TAKE 1 TAB BY MOUTH DAILY. 8 Active pen needle, diabetic 32 gauge x /32 needle Use with pen three times daily. 7 Active metoprolol tartrate (LOPRESSOR) 100 mg tablet TAKE 1 TABLET BY MOUTH TWICE A DAY 6 Active FREESTYLE LANCETS MISC by Does not apply route. use to test blood sugar tid or as directed 1 Active diabetic supplies, miscellan. misc BLOOD GLUCOSE CALIBRATION (FREESTYLE CONTROL SOLUTION) LIQD Test three times daily or as directed. 0 Active DAPAGLIFLOZ PROPANED-METFOR MIN ORAL Take by mouth. Activ e Active Problems Problem Noted Date Diagnosed Date Morbid obesity with BMI of 45.0-49.9, adult 02/11 Diastolic heart failure 05/17/2020 Overview (03/08/2024): Last Assessment & Plan: Appears euvolemic, has [...] stage 2, GFR 60-89 ml/min 04/29/2017 Overview (03/08/2024): Dr Dietz Essential hypertension 05/23/2016 Overview (03/08/2024): Last Assessment & Plan: Controlled NSTEMI (non-ST elevated myocardial infarction) 0 05/13/2016 Overview (03/08/2024): 04/2016--s/p PCI with KAYKAY to posterolateral branch of LCX Depression 03/11/2016 Hepatomegaly 06/09/2015 Nephrolithiasis 02/21/2015 Phimosis 04/09/2014 DJD (degenerative joint disease) of knee 013 Leg edema, right 05/29/2012 Overview (03/08/2024): Negative venous ultrasound 2009 Venous stasis 05/29/2012 Sleep apnea 2011 History of myocardial infarction 06/25/2010 Overview (03/08/2024): NSTEMI 06/2010, 95% stenosis circumflex, bare metal stent--Dr. Khan Last Assessment & Plan: Has chronic dyspnea with exertion, weight has increased, planning on going for bariatric surgery in the near future. Nuclear stress test done within the year no ischemia noted, symptoms have not worsened. 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 Next CN due 2015. Erectile dysfunction 03/23/2010 Onychomycosis 07/07/2007 Hyperlipidemia 05/07/2005 Overview (03/08/2024): Last Assessment & Plan: No recent Lipid panel this should be updated, continue statin Type II or unspecified type diabetes mellitus with renal manifestations, uncontrolled(250.42) 05/07/2005 Overview (03/08/2024): Last Assessment & Plan: Lantus Titration Protocol-Fasting blood sugar 160-180. Lantus insulin increased to 37 units. Pt will increase dose according to protocol. See note 09/17/11 Encounters Date Type Department Care Team Description 03/17/2024 Telephone Gastroenterology - [address] [facility] [address] [place] [phone] Jadyn Pina MA Results 03/11/2024 8:45 AM EST Anesthesia Event [facility] Endoscopy [address] [place] [phone] Michi Eddy DO 03/11/2024 7:30 AM EST - 03/11/2024 11:59 PM EST Hospital Encounter [facility] Endoscopy [address] [place] [phone] Anton Palencia MD Spencer, Mark A, MD Colon cancer screening Discharge Disposition: Home or Self Care from Last 3 Months Immunizations Name Administration Dates Next Due Influenza trivalent, with pr eservative (Fluzone; Afluria) 6mo and older 02/16/2016,12/15/2013,12/03/2012,12/25,11/02/2009,12/21/2007 Pneumococcal polysaccharide 23 valent (Pneumovax 23) 2yo and older 05/31/2003 Td, Unspecified 05/31/2003 Tdap Tetanus diptheria acell ular pertussis (Boostrix; Adacel) 7yo and older 03/10/2017 Surgical History Surgery Date Site/Laterality Comments COLONOSCOPY W/ POLYPECTOMY 2005 PROCEDURE: OR COLSC FLX W/RMVL OF TUMOR POLYP LESION SNARE TQ; COMMENT: Zeroogian; large inflammatory polyp. HERNIA REPAIR PROCEDURE: HISTORICAL HERNIA REPAIR/UMB CORONARY STENT PLACEMENT 04/27/16 [facility] [place]: [place], CORONARY, ELOY; COMMENT: stent OM (L main & LAD ok) Medical History Medical History Date Comments Other and unspecified hyperlipidemia 05/07/2005 DX:Other and unspecified hyperlipidemia Obesity, unspecified 05/07/2005 DX:Obesity, unspecified Type II or unspecified type diabetes mellitus without mention of complication, not stated as uncontrolled 05/07/2005 DX:Type II or unspecified ty pe diabetes mellitus without mention of complication, not stated as uncontrolled Essential hypertension, benign 05/07/2005 D X:Essential hypertension, benign Morbid obesity with BMI of 4 5.0-49.9, adult ([facility]) 06/24/2016 DX:Morbid obesity with BMI o f 45.0-49.9, adult ([facility]) Family History Medical History Relation Name Comments No Known Problems Aunt No Known Problems Brother No Known Problems Father No Known Problems Maternal Grandfather No Known Problems Maternal Grandmother No Known Problems Mother No Known Problems Other No Known Problems Paternal Grandfather No Known Problems Paternal Grandmother No Known Problems Sister No Known Problems Uncle Blindness Neg Hx Cataracts Neg Hx Glaucoma Neg Hx Macular degeneration Neg Hx Strabismus Neg Hx Relation Name Status Comments Aunt Brother Father Maternal Grandfather Maternal Grandmother Mother Other Paternal Grandfather Paternal Grandmother Sister Uncle Social History Tobacco Use Types Packs/Day Years Used Date Smoking Tobacco: Never Smokeless Tobacco: Never Alcohol Use Standard Drinks/Week Comments No 0 (1 standard drink = 0.6 oz pur e alcohol) Interpersonal Safety Answer Date Record ed Physical Abuse 03/11/2024 Verbal Abuse 03/11/2024 Sex and Gender Information Value Date Recorded Sex Assigned at Not on file Legal Sex Male 4:59 PM EST Gender Identity Not on file Sexual Orientation Not on file Obstetrics History Last Filed Vital Signs Vital Sign Reading Time Taken Comments Blood Pressure 139/84 03/11/2024 9:32 AM EST Pulse 76 03/11/2024 9:32 AM EST Temperature 36.8 ??C (98.2 ??F) 03/11/2024 9:12 AM ES T Respiratory Rate 12 03/11/2024 9:32 AM EST Oxygen Saturation 96% 03/11/2024 9:32 AM EST Inhaled Oxygen Concentration - - Weight 127 kg (280 lb) 03/11/2024 8:24 AM EST Height 167.6 cm (5' 6 ) 03/11/2024 8:24 AM EST Body Mass Index 45.19 03/11/2024 8:24 AM EST Plan of Treatment Upcoming Encounters Date Type Department Care Team (Late st Contact Info) Description 06/09/2024 3:00 PM EDT Office Visit [facility] [address] [phone] Mikie Vazquez MD [address] [address] Health Maintenance Due Date Last Done Comments Diabetes: Annual Foot Exam 1964 Diabetes: Annual Retina Eye Exam 1965 Pneumococcal Vaccine: 50+ Years (2 of 2 - PCV) 05/30/2004 05/31/2003 RSV Immunization Patients 60+ Years Old (1 - Risk 60-74 years 1-dose series) 2014 Social Influencers of Health Screening 01/09/2022 Diabetes: Annual Urine Albumin-Creatinine Ratio (uACR) 01/25/2022 06/10/2017 Depression Screening 09/21/2024 09/22/2023 Diabetes: Blood Sugar Control Test (HGBA1C) 10/29/2024 04/28/2024, 01/15/2024, 09/22/2023, Additional history exists Diabetes: Annual GFR (Glomerular Filtration Rate) 01/06/2025 01/07/2024, 09/22/2023, 06/10/2017 Hypertension/CHF/CAD Annual BMP Blood Test 01/06/2025 01/07/2024, 09/22/2023, 06/10/2017 Falls Risk Assessment 03/11/2025 03/11/2024 DTaP,Tdap,and Td Vaccines (3 - Td or Tdap) 03/10/2027 03/10/2017, 05/31/2003 Cholesterol Screening (Lipid Panel) 09/21/2028 09/22/2023, 09/22/2023, 03/10/2017 Colorectal Cancer Screening: Colonoscopy 03/11/2034 03/11/2024, 05/22/2021 Zoster Vaccines Completed 07/30/2021, 04/13/2021 Hepatitis C Screening Completed 09/22/2023, 010 Colorectal Cancer Screening: FIT-DNA (Cologuard) Discontinued 10/21/2023 COVID-19 Vaccine Completed 12/10/2023, , 11/20/2021, Additional history exists Influenza Vaccine Completed 12/10/2023, , 11/23/2020, Additional history exists HIB Vaccines Aged Out No longer eligi ble based on patient's age to complete this topic HPV Vaccines Aged Out No longer eligi ble based on patient's age to complete this topic Hepatitis A Vaccines Aged Out No long er eligible based on patient's age to complete this topic Hepatitis B Vaccines Aged Out No long er eligible based on patient's age to complete this topic IPV Vaccines Aged Out No longer eligi ble based on patient's age to complete this topic MMR Vaccines Aged Out No longer eligi ble based on patient's age to complete this topic Meningococcal ACWY Vaccine Aged Out N o longer eligible based on patient's age to complete this topic Meningococcal B Vacine Aged Out No lo nger eligible based on patient's age to complete this topic RSV Immunization Patients Under 20 months Aged Out No longer eligible based on patient's age to complete this topic Varicella Vaccines Aged Out No longer eligible based on patient's age to complete this topic Procedures Procedure Name Priority Date/Time Associated Diagnosis Comments COLONOSCOPY Routine 03/11/2024 9:11 AM EST Colon cancer screening TISSUE EXAM Routine 03/11/2024 8:56 AM EST Colon cancer screening CREATININE, SERUM Routine 01/07/2024 12: 07 PM EST Diabetic glomerulopathy (CMS/HCC) Benign hypertension Stage 3a chronic kidney disease (CMS/HCC) HM URINE ALBUMIN CREATININE RATIO Routine 06/10/2017 HEMOGLOBIN A1C Routine 03/10/2017 LIPID PANEL Routine 03/10/2017 HM HEPATITIS C SCREENING Routine 09/04/2009 from Last 3 Months or Most Recently Relevant to Health Maintenance Results * COLONOSCOPY Anesthesia - MAC; [facility] ENDOSCOPY (03/11/2024 9:11 AM EST) Anatomical Region Laterality Modality Endoscopy 03/11/2024 8:44 AM EST Impressions 03/11/2024 9:15 AM EST - One 5 mm polyp in the transverse colon, removed with ? a cold snare. Resected and retrieved. ? - The examination was otherwise normal on direct and ? retroflexion views. Recommendation: ?- Await pathology results. ? - Repeat colonoscopy in 5 years for surveillance. Narrative 03/11/2024 9:15 AM EST [facility] GI Patient Name: Alcides Patel Procedure Date: 03/11/2024 8:44 AM Date of : 1955 Age: 68 Room: ROOM 16 Gender: Male Note Status: Finalized Attending MD: Anton Palencia MD, Procedure Date No Time: 03/11/2024 Procedure: ? Colonoscopy Indications: ? High risk colon cancer surveillance: Personal history ? of colonic polyps Providers: ? Anton Palencia MD Referring MD: ?Anton Palencia MD Medicines: ? Propofol per Anesthesia Complications: ? No immediate complications. Estimated Blood Loss: ? Estimated blood loss: none. Procedure: ? Pre-Anesthesia Assessment: ? - ASA Grade Assessment: III - A patient with severe ? systemic disease. ? After I obtained informed consent, the scope was ? passed under direct vision. Throughout the procedure, ? the patient's blood pressure, pulse, and oxygen ? saturations were monitored continuously.The ? Colonoscope was introduced through the anus and ? advanced to the cecum, identified by appendiceal ? orifice and ileocecal valve. The colonoscopy was ? performed without difficulty. The patient tolerated ? the procedure well. The quality of the bowel ? preparation was adequate. Findings: ?The perianal and digital rectal examinations were ? normal. ? A 5 mm polyp was found in the transverse colon. The ? polyp was sessile. The polyp was removed with a cold ? snare. Resection and retrieval were complete. ? The exam was otherwise without abnormality on direct ? and retroflexion views. Procedure Code(s): ? --- Professional --- ? 37528, Colonoscopy, flexible; with removal of ? tumor(s), polyp(s), or other lesion(s) by snare ? technique Diagnosis Code(s): ? --- Professional --- ? Z86.010, Personal history of colonic polyps ? D12.3, Benign neoplasm of transverse colon (hepatic ? flexure or splenic flexure) CPT copyright 2021 [employer]. All rights reserved. The codes documented in this report are preliminary and upon player manager review may be revised to meet current compliance requirements. Anton Palencia MD 03/11/2024 9:15:12 AM This report has been signed electronically.Anton Palencia MD Number of Addenda: 0 Note Initiated On: 03/11/2024 8:44 AM Scope In: Scope Out: ? Endoscopy Department at [facility] - [address] [place] [address], ? [place] [address] Procedure Note Anton Palencia MD - 03/11/2024 [facility] GI Patient Name: Alcides Patel Procedure Date: 03/11/2024 8:44 AM Date of : 1955 Age: 68 Room: ROOM 16 Gender: Male Note Status: Finalized Attending MD: Anton Palencia MD, Procedure Date No Time: 03/11/2024 Procedure: Colonoscopy Indications: High risk colon cancer surveillance: Personalhistory of colonic polyps Providers: Anton Palencia MD Referring MD: Anton Palencia MD Medicines: Propofol per Anesthesia Complications: No immediate complications. Estimated Blood Loss: Estimated blood loss: none. Procedure: Pre-Anesthesia Assessment: - ASA Grade Assessment: III - A patient with severe systemic disease. After I obtained informed consent, the scope was passed under direct vision. Throughout theprocedure, the patient's blood pressure, pulse, and oxygen saturations were monitored continuously.The Colonoscope was introduced through the anus and advanced to the cecum, identified by appendiceal orifice and ileocecal valve. The colonoscopy was performed without difficulty. The patient tolerated the procedure well. The quality of the bowel preparation was adequate. Findings: The perianal and digital rectal examinations were normal. A 5 mm polyp was found in the transverse colon. The polyp was sessile. The polyp was removed with acold snare. Resection and retrieval were complete. The exam was otherwise without abnormality ondirect and retroflexion views. Procedure Code(s): --- Professional --- 38390, Colonoscopy, flexible; with removal of tumor(s), polyp(s), or other lesion(s) by snare technique Diagnosis Code(s): --- Professional --- Z86.010, Personal history of colonic polyps D12.3, Benign neoplasm of transverse colon (hepatic flexure or splenic flexure) CPT copyright 2020 [employer]. All rights reserved. The codes documented in this report are preliminary and upon player manager reviewmay be revised to meet current compliance requirements. Anton Palencia MD 03/11/2024 9:15:12 AM This report has been signed electronically.Anton Palencia MD Number of Addenda: 0 Note Initiated On: 03/11/2024 8:44 AM Scope In: Scope Out: Endoscopy Department at [facility] - [address] [place] [phone] IMPRESSION: - One 5 mm polyp in the transverse colon, removed with a cold snare. Resected and retrieved. - The examination was otherwise normal on directand retroflexion views. Recommendation: - Await pathology results. - Repeat colonoscopy in 5 years for surveillance. us Anton Palencia MD GI~PROCEDURE ORDERABLES Fin al Result * Tissue exam (03/11/2024 8:56 AM EST) Final Diagnosis Transverse Colon, polyp x1: Inflammatory polyp. 03/12/2024 11:04 AM EST [facility] Gross Description A. Large Intestine, Transverse Colon, polyp x1: Labeled trans colon polyp x 1 . Received in formalin, is an approximately 0.5 cm, in greatest diameters, soft to rubbery, peck-pink, polypoid tissue, which is inked black at the base, wrapped in paper and submitted in toto in one cassette, one piece, multiple levels. dvb/DG 03/12/2024 11:04 AM EST [facility] Disclaimer Unless otherwise specified, all tissue is 10% NB formalin fixed and paraffin embedded. 03/12/2024 11:04 AM [facility] Tissue Transverse colon structure / Unknown 03/11/2024 8:56 AM EST 03/11/2024 10:43 AM EST us Anton Palencia MD LAB PATHOLOGY ORDERABLES Fi nal Result Performing Organization Address [facility]/ZIP Co de Phone Number [facility] [address] [place] [address], * (ABNORMAL) Creatinine (01/07/2024 12:07 PM EST) Pathologist [facility] Creatinine 1.53(H) 0.70 - 1.30 mg/dL LAB CHEMISTRY METHOD 01/07/2024 6:01 PM EST [facility] eGFR 49(L) >=60 mL/min/1. 73m2 LAB CHEMISTRY METHOD 01/07/2024 6:01 PM EST [facility] Comment:Calculation based on the??Chronic Kidney Disease Epidemiology Collaboration (CKD-EPI) equation refit??without adjustment for race. Blood Venous blood specimen / Unknown Venipuncture / Unknown 01/07/2024 12:07 PM EST 01/07/2024 12:53 PM EST Gary Schmidt MD LAB BLOOD ORDERABLES Final Resul t Performing Organization Address [facility] Co de Phone Number [facility] [address] [place] [address], * HM Urine Albumin Creatinine Ratio (06/10/2017) Pathologist [facility] HM Urine Albumin Creatinine Ratio abstracted Historical Provider HEALTH MAINTENANCE Final Result * (ABNORMAL) Hemoglobin A1c (03/10/2017) [facility] Hemoglobin A1C 10.1(A) 4.0 - 6.0 % Blood Venous blood specimen / Unknown Historical Provider LAB BLOOD ORDERABLES Tanesha l Result * (ABNORMAL) Lipid panel (03/10/2017) [facility] LDL/HDL Ratio 4 0 - 4 Triglycerides 120 0 - 150 mg/dL Cholesterol 134 0 - 200 mg/dL HDL 38(A) >=40 mg/dL LDL Cholesterol 72 0 - 100 mg/dL Blood Venous blood specimen / Unknown us Historical Provider LAB BLOOD ORDERABLES Tanesha l Result * Hepatitis C Screening (09/04/2009) Hepatitis C Screening abstracted us Historical Provider HEALTH MAINTENANCE Final Result from Last 3 Months or Most Recently Relevant to Health Maintenance Insurance MEDICARE [facility]) Care Teams Aerial Installer Relationship Specialty Start Date End Date Yunier Nunes PA [address] [place] [address] PCP - General Physician Provider Relations Representative 12/25/23
--- OUTSIDE RECORDS SUMMARY | 2024-05-11 16:37 | XMS_ITS | Clinical Summary ---
Author Organization [facility] Address [address] [place] [address] Care Team Providers Care Data Miner Name Role Phone Americo Salter MD Primary Care Provider [phone] Allergies No known active allergies Social History Tobacco Use Types Packs/Day Years Used Date Smoking Tobacco: Never Assessed Sex and Gender Information Value Date Recorded Sex Assigned at Not on file Gender Identity Not on file Sexual Orientation Not on file Last Filed Vital Signs Vital Sign Reading Time Taken Comments Blood Pressure 123/67 04/26/2016 4:45 PM EDT Pulse 74 04/26/2016 4:45 PM EDT Temperature 36.6 ??C (97.8 ??F) 04/26/2016 4:45 PM ED T Respiratory Rate 20 04/26/2016 4:45 PM EDT Oxygen Saturation 97% 04/26/2016 4:45 PM EDT Inhaled Oxygen Concentration - - Weight - - Height - - Body Mass Index - - Plan of Treatment Health Maintenance Due Date Last Done Comments Hepatitis C Virus Screening 1955 DTaP/Tdap/Td Vaccines (1 - Tdap) 1973 Colonoscopy 06/29/1999 Pneumococcal Vaccines 50+ (1 of 1 - PCV) 2004 Zoster (Shingles) Vaccine (1 of 2) 2004 Influenza Vaccine 09/11/2023 COVID-19 Vaccine ( - 2023-2 5 season) 2023 RSV Vaccine 60 years and old er and Patients (1 - 1-dose 75+ series) 2029 Hepatitis B Vaccines Aged Out No long er eligible based on patient's age to complete this topic Care Teams Data Miner Relationship Specialty Start Date End Date Americo Salter MD [address] [place] [id number] PCP - General 04/26/16
--- OUTSIDE RECORDS SUMMARY | 2024-05-11 16:37 | XMS_ITS | Clinical Summary ---
Author Organization [facility] Address [address] [place] [phone] Phone Care Team Providers Care Gas Operator Name Role Phone Jevon Adler MD Primary Care Provider [phone] Allergies Active Allergy Reactions Criticality Noted Date Comments Irbesartan 05/07/2021 Lactose 05/07/2021 Latex 05/07/2021 Lisinopril 05/07/2021 Naproxen 05/07/2021 Medications atorvastatin (LIPITOR) 40 MG tablet Take 40 mg by mouth 1 (one) time each day 07/11/2018 Active clopidogrel (PLAVIX) 75 MG tablet Take 75 mg by mouth 1 (one) time each day 04/30/2016 Active Aspirin Low Dose 81 MG EC tablet Take 81 mg by mouth 1 (one) time each day 02/21/2021 Active Trulicity 1.5 MG/0.5ML solution pen-injector 1 Units 03/09/2021 Active furosemide (LASIX) 40 MG tablet Take 40 mg by mouth in the morning and 40 mg in the evening. 02/22/2021 Active metoprolol tartrate (LOPRESSOR) 100 MG tablet Take 100 mg by mouth 1 (one) time each day 04/30/2016 Active losartan (Cozaar) 50 MG tablet Take 1 tablet (50 mg total) by mouth 1 (one) time each day 60 tablet 3 05/29/2021 Active Dapagliflozin Propanediol (Farxiga) 10 MG tablet Take 10 mg by mouth 1 (one) time each day in the morning Active amLODIPine (NORVASC) 10 MG tablet Take 10 mg by mouth 1 (one) time each day Active insulin lispro (HumaLOG) 100 UNIT/ML injection Inject under the skin Active Active Problems Problem Noted Date Diagnosed Date Nephrolithiasis 05/29/2021 Stage 3a chronic kidney disease 05/29/2021 Microalbuminuria 05/29/2021 Generalized edema 05/29/2021 Binge eating disorder 05/07/2021 Body mass index 40+ - severely obese 05/07/2021 Coronary arteriosclerosis 05/07/2021 History of non-ST segment elevation myocardial i nfarction 05/07/2021 Hypercholesterolemia 05/07/2021 Hypertension 05/07/2021 Type 2 diabetes mellitus 05/07/2021 Obstructive sleep apnea syndrome 05/07/2021 Family History Medical History Relation Comments Stroke Father Diabetes Mother Hypertension Mother Relation Status Comments Father Mother Social History Tobacco Use Types Packs/Day Years Used Date Smoking Tobacco: Never Smokeless Tobacco: Never Tobacco Cessation:Counseling Given: Not Answered Alcohol Use Standard Drinks/Week Comments Never 0 (1 standard drink = 0.6 oz pur e alcohol) Sex and Gender Information Value Date Recorded Sex Assigned at Not on file Legal Sex Male 4:51 PM EST Gender Identity Not on file Sexual Orientation Not on file Last Filed Vital Signs Vital Sign Reading Time Taken Comments Blood Pressure 130/80 07/29/2022 2:23 PM EDT Pulse 76 07/29/2022 2:23 PM EDT Temperature - - Respiratory Rate - - Oxygen Saturation 94% 07/29/2022 2:23 PM EDT Inhaled Oxygen Concentration - - Weight 130 kg (285 lb 9.6 oz) 07/29/2022 2:23 PM EDT Height 172.7 cm (5' 8 ) 07/29/2022 2:23 PM EDT Body Mass Index 43.43 07/29/2022 2:23 PM EDT Plan of Treatment Health Maintenance Due Date Last Done Comments Colorectal Cancer Screening: Annual FOBT 06/29/2003 Colorectal Cancer Screening: Colonoscopy 06/29/2003 Colorectal Cancer Screening: Sigmoidoscopy 06/29/2003 Pneumococcal Vaccine: 65+ Ye ars (2 of 2 - PCV) 05/30/2004 05/31/2003 Hepatitis B Vaccine (1 of 3 - Risk 3-dose series) 2014 Diabetes: Ophthalmology Exam 04/05/2021 Diabetes: Pedal Pulse Checked 04/05/2021 Diabetes: Sensory Foot Exam 04/05/2021 Diabetes: Visual Foot Exam 04/05/2021 Diabetes: Hemoglobin A1C 07/29/20242 025, 11/26/2021, 03/10/2017 Influenza Vaccine Completed 12/10/2023, , 11/13/2018, Additional history exists Procedures Procedure Name Priority Date/Time Associated Diagnosis Comments EXT RESULT ENTRY Routine 11/26/2021 from Last 3 Months or Most Recently Relevant to Health Maintenance Results * (ABNORMAL) EXT RESULT ENTRY (11/26/2021) Creatinine 1.60(A) 0.60 - 1.30 mg/dL eGFR Non-Afr Marshallese 46 ALT (SGPT) 19 U/L AST (SGOT) 21 U/L Hemoglobin A1C 6.3(A) 4.0 - 6.0 11/26/2021 Historical Provider LAB BLOOD ORDERABLES Tanesha l Result from Last 3 Months or Most Recently Relevant to Health Maintenance Insurance [facility] Care Teams Gas Operator Relationship Specialty Start Date End Date Jevon Adler MD [address] PCP - General Internal Medicine 03/28/21
== END 2024-05-11 14:36 | disposition home or self-care (01) ==
LOC: HO.HKAS 13:57
PROVIDERS: Visit Provider Internal Medicine Nephrology
DX: E11.21 Type 2 diabetes mellitus with diabetic nephropathy (principal); I10 Essential (primary) hypertension; N18.31 Chronic kidney disease, stage 3a
CPT/HCPCS: 99214

== ENCOUNTER 2024-05-11 13:56 | Outpatient (REF) | payer BC, SELFPAY ==
--- OUTSIDE RECORDS SUMMARY | 2024-05-11 17:31 | XMS_ITS | Clinical Summary ---
Author Organization [facility] Address [address] [place] [address] Phone Care Team Providers Care Cook Helper Meat Name Role Phone Yunier Nunes Primary Care Provider [phone] Allergies Active Allergy Reactions Criticality Noted Date [...] 03/17/2024 Telephone Gastroenterology - [address] [facility] [address] [place] [phone] Jadyn Pina MA Results 03/11/2024 8:45 AM EST Anesthesia Event [facility] Endoscopy [address] [place] [phone] Michi Eddy DO 03/11/2024 7:30 AM EST - 03/11/2024 11:59 PM EST Hospital Encounter [facility] Endoscopy [address] [place] [phone] Anton Palencia MD Spencer, Mark A, MD [...] Site/Laterality Comments COLONOSCOPY W/ POLYPECTOMY 2005 PROCEDURE: MO COLSC FLX W/RMVL OF TUMOR POLYP LESION SNARE TQ; COMMENT: Zeroogian; large inflammatory polyp. HERNIA REPAIR PROCEDURE: HISTORICAL HERNIA REPAIR/UMB CORONARY STENT PLACEMENT 04/27/16 [place] PROCEDURE: STENT, CORONARY, ELOY; COMMENT: stent OM [...] obesity with BMI of 4 5.0-49.9, adult ([facility]) 06/24/2016 DX:Morbid obesity with BMI o f 45.0-49.9, adult ([facility]) Family History Medical History Relation Name Comments [...] Description 06/09/2024 3:00 PM EDT Office Visit [facility] [address] [phone] Mikie Vazquez MD [address] [address] Health Maintenance Due Date Last Done Comments [...] Maintenance Results * COLONOSCOPY Anesthesia - MAC; [facility] ENDOSCOPY (03/11/2024 9:11 AM EST) [...] for surveillance. Narrative 03/11/2024 9:15 AM EST [facility] GI Patient Name: Alcides Patel Procedure Date: [...] Procedure Code(s): ? --- Professional --- ? 09986, Colonoscopy, flexible; with removal of ? tumor(s), polyp(s), or other lesion(s) by snare ? technique Diagnosis Code(s): ? --- Professional --- ? Z86.010, Personal history of colonic polyps ? D12.3, Benign neoplasm of transverse colon (hepatic ? flexure or splenic flexure) CPT copyright 2021 [employer]. All rights reserved. The codes documented in this report are preliminary and upon crop farm helper review may be revised to meet current compliance requirements. Anton Palencia MD 03/11/2024 9:15:12 AM This report has been signed electronically.Anton Palencia MD Number of Addenda: 0 Note Initiated On: 03/11/2024 8:44 AM Scope In: Scope Out: ? Endoscopy Department at [facility] - [address] [place] [address], ? [place] [address] Procedure Note Anton Palencia MD - 03/11/2024 [facility] GI Patient Name: Alcides Patel Procedure Date: [...] retroflexion views. Procedure Code(s): --- Professional --- 91914, Colonoscopy, flexible; with removal of tumor(s), polyp(s), or other lesion(s) by snare technique Diagnosis Code(s): --- Professional --- Z86.010, Personal history of colonic polyps D12.3, Benign neoplasm of transverse colon (hepatic flexure or splenic flexure) CPT copyright 2020 [employer]. All rights reserved. The codes documented in this report are preliminary and upon crop farm helper reviewmay be revised to meet current compliance requirements. Anton Palencia MD 03/11/2024 9:15:12 AM This report has been signed electronically.Anton Palencia MD Number of Addenda: 0 Note Initiated On: 03/11/2024 8:44 AM Scope In: Scope Out: Endoscopy Department at [facility] - [address] [place] [phone] IMPRESSION: - One 5 mm polyp in [...] x1: Inflammatory polyp. 03/12/2024 11:04 AM EST [facility] Gross Description A. Large Intestine, Transverse Colon, polyp x1: Labeled trans colon polyp x 1 . Received in formalin, is an approximately 0.5 cm, in greatest diameters, soft to rubbery, peck-pink, polypoid tissue, which is inked black at the base, wrapped in paper and submitted in toto in one cassette, one piece, multiple levels. dvb/DG 03/12/2024 11:04 AM EST [facility] Disclaimer Unless otherwise specified, all tissue is 10% NB formalin fixed and paraffin embedded. 03/12/2024 11:04 AM [facility] Tissue Transverse colon structure / Unknown 03/11/2024 8:56 AM EST 03/11/2024 10:43 AM EST us Anton Palencia MD LAB PATHOLOGY ORDERABLES Fi nal Result Performing Organization Address [facility]/ZIP Co de Phone Number [facility] [address] [place] [address], * (ABNORMAL) Creatinine (01/07/2024 12:07 PM EST) Pathologist [facility] Creatinine 1.53(H) 0.70 - 1.30 mg/dL LAB CHEMISTRY METHOD 01/07/2024 6:01 PM EST [facility] eGFR 49(L) >=60 mL/min/1. 73m2 LAB CHEMISTRY METHOD 01/07/2024 6:01 PM EST [facility] Comment:Calculation based on the??Chronic Kidney Disease Epidemiology Collaboration (CKD-EPI) equation refit??without adjustment for race. Blood Venous blood specimen / Unknown Venipuncture / Unknown 01/07/2024 12:07 PM EST 01/07/2024 12:53 PM EST Gary Schmidt MD LAB BLOOD ORDERABLES Final Resul t Performing Organization Address [facility] Co de Phone Number [facility] [address] [place] [address], * HM Urine Albumin Creatinine Ratio (06/10/2017) Pathologist [facility] HM Urine Albumin Creatinine Ratio abstracted Historical Provider HEALTH MAINTENANCE Final Result * (ABNORMAL) Hemoglobin A1c (03/10/2017) [facility] Hemoglobin A1C 10.1(A) 4.0 - 6.0 % Blood Venous blood specimen / Unknown Historical Provider LAB BLOOD ORDERABLES Tanesha l Result * (ABNORMAL) Lipid panel (03/10/2017) [facility] LDL/HDL Ratio 4 0 - 4 Triglycerides [...] Recently Relevant to Health Maintenance Insurance MEDICARE [facility]) Care Teams Cook Helper Meat Relationship Specialty Start Date End Date Yunier Nunes PA [address] [place] [address] PCP - General Physician Apple Sorter 12/25/23
--- OUTSIDE RECORDS SUMMARY | 2024-05-11 17:31 | XMS_ITS | Clinical Summary ---
Author Organization [facility] Address [address] [place] [place] [address] Care Team Providers Care Lien Searcher Name Role Phone Yunier Nunes Primary Care Provider [phone] Source Comments PLEASE NOTE, if this patient [...] complication, with long-term current use of insulin ([facility]) Inject 1.5 mg into the skin once a week 5 mL 10/21/19 24 Active coffee xt-phosphatidyl serine (NOOTROPIC COFFEE-PS) 100-100 mg capIndications: Memory changes Take one tablet daily for mental accuity 90 Capsule 1 01/15/20 24 Active tirzepatide (MOUNJARO) 2.5 mg/0.5 mL pnijIndications :Body mass index (BMI) 45.0-49.9, adult ([facility]),Moder ate binge-eating disorder,Morbid obesity with body mass index of 45.0-49.9 in adult ([facility]),Type 2 diabetes mellitus with stage 3b chronic kidney disease, with long-term current use of insulin ([facility]) INJECT 2.5 MG SUBCUTANEOUSLY WEEKLY 2 mL [...] pnijIndications :Body mass index (BMI) 45.0-49.9, adult ([facility]),Type 2 diabetes mellitus with stage 3b chronic kidney disease, with long-term current use of insulin ([facility]),Moder ate binge-eating disorder Inject 5 mg into the skin once a week 2 mL 04/29/19 25 Active Active Problems Problem Noted Date Diagnosed Date Severe obesity ([facility]) 04/28/2024 Morbid obesity with body mas s index of 45.0-49.9 in adult ([facility]) 09/22/2023 Chronic kidney disease, stage 3a ([facility]) 05/29 Generalized edema 05/29/2021 Microalbuminuria 05/29/2021 Nephrolithiasis 05/29/2021 Binge eating disorder 05/07/2021 Body mass index (BMI) 45.0-49.9, adult ([facility]) 05/07/2021 Coronary arteriosclerosis 05/07/2021 Diabetes mellitus type 2 ([facility]) 05/07/2021 Diastolic heart failure ([facility]) 05/17/2020 Overview (04/28/2024): Last Assessment & Plan: [...] Controlled NSTEMI (non-ST elevated myocardial infarction) ( [facility]) 05/13/2016 Overview (04/28/2024): 04/2016--s/p PCI with KAYKAY [...] Description 04/28/2024 3:20 PM EDT Office Visit [address] [place] [phone] Yunier Nunes PA Sleep apnea, unspecified type (Primary Dx); Body mass index (BMI) 45.0-49.9, adult ([facility]); Type 2 diabetes mellitus with stage 3b chronic kidney disease, with long-term current use of insulin ([facility]); Morbid obesity with body mass index of 45.0-49.9 in adult ([facility]); Benign prostatic hyperplasia with nocturia; Moderate binge-eating [...] 09/22/2023 Alcohol and Drug Screen 02/11/2024 09/22/2023 [id number] ( season) 2024 12/10/2023, 01/27/2023, 11/20/2021, Additional [...] disease, with long-term current use of insulin ([facility]) HISTORIC COLONOSCOPY 03/11/2024 3:00 AM EST COLOGUARD Routine 10/21/2023 3:00 AM EDT Encounter for colorectal cancer screening using Cologuard test EYE EXAM 10/15/2023 3:00 AM EDT COMPREHENSIVE METABOLIC PANEL Routine 09/22/2023 11:35 AM EDT Body mass index (BMI) 45.0-49.9, adult ([facility]) Morbid obesity with body mass index of 45.0-49.9 in adult ([facility]) Binge eating disorder Chronic kidney disease, stage 3a ([facility]) Coronary arteriosclerosis Generalized edema History of non-ST elevation myocardial infarction (NSTEMI) Hypercholesterolemi a Hypertension, unspecified type Microalbuminuria Nephrolithiasis Obstructive sleep apnea syndrome Type 2 diabetes mellitus with other circulatory complication, without long-term current use of insulin ([facility]) Routine adult health maintenance Encounter for colorectal cancer screening using Cologuard test HEPATITIS C AB W/RFLX HCV RNA, QT, RT PCR Routine 09/22/2023 11:35 AM EDT Body mass index (BMI) 45.0-49.9, adult ([facility]) Morbid obesity with body mass index of 45.0-49.9 in adult ([facility]) Binge eating disorder Chronic kidney disease, stage 3a ([facility]) Coronary arteriosclerosis Generalized edema History of non-ST elevation myocardial infarction (NSTEMI) Hypercholesterolemi a Hypertension, unspecified type Microalbuminuria Nephrolithiasis Obstructive sleep apnea syndrome Type 2 diabetes mellitus with other circulatory complication, without long-term current use of insulin ([facility]) Routine adult health maintenance Encounter for colorectal cancer screening using Cologuard test LIPID PANEL Routine 09/22/2023 11:35 AM EDT Body mass index (BMI) 45.0-49.9, adult ([facility]) Morbid obesity with body mass index of 45.0-49.9 in adult ([facility]) Binge eating disorder Chronic kidney disease, stage 3a ([facility]) Coronary arteriosclerosis Generalized edema History of non-ST elevation myocardial infarction (NSTEMI) Hypercholesterolemi a Hypertension, unspecified type Microalbuminuria Nephrolithiasis Obstructive sleep apnea syndrome Type 2 diabetes mellitus with other circulatory complication, without long-term current use of insulin ([facility]) Routine adult health maintenance Encounter for colorectal cancer screening using Cologuard test from Last 3 Months or Most Recently Relevant to Health Maintenance Results * (ABNORMAL) HGBA1C W/MPG (04/28/2024 3:33 PM EDT) HEMOGLOBIN A1C 7.3(H) <5.7 % of total Hgb [facility] Comment: For someone without known diabetes, a [...] ?? MEAN PLASMA GLUCOSE 183 mg/dL (calc) [facility] Blood Blood / Unknown 04/28/2024 3 :33 PM EDT 04/28/2024 3:34 PM EDT Narrative [facility] - 04/29/2024 3:13 AM EDT FASTING:NO us Y[facility]ier [facility] - BLOOD DRAW Final Result [facility] [address] [address], [facility] [address] [place] [phone] * HISTORIC COLONOSCOPY (03/11/2024 3:00 AM EST) 03/11/2024 3:00 AM EST us Yunier [facility] PROCEDURES Final Result * COLOGUARD (10/21/2023 3:00 AM EDT) Stool Stool specimen / Unknown 10/21/2023 3:00 AM EDT us Y[facility] - NO BLOOD DRAW Edited Res ult - Final Performing Organization Address City/[facility]/ZIP Co de Phone Number [facility] [address] [facility], [address] [facility] [id number] [place] [address], * EYE EXAM (10/15/2023 3:00 AM EDT) 10/15/2023 3:00 AM EDT us Yunier [facility] OTHER Edited Result - Final * HEPATITIS C AB W/RFLX HCV RNA, QT, RT PCR (09/22/2023 11:35 AM EDT) HEPATITIS C ANTIBODY NON-REACT JULIEN NON-REACT JULIEN [facility] Comment: HCV antibody was non-reactive. There is no laboratory evidence of HCV infection. In most cases, no further action is required. However, if recent HCV exposure is suspected, a test for HCV RNA (test code 54571) is suggested. For additional information please refer to http://education.SalesPortal/faq/DLG44b0 (This link is being provided for informational/ educational purposes only.) Blood Blood / Unknown 09/22/2023 1 1:35 AM EDT 09/22/2023 11:35 AM EDT us Yunier [facility] - BLOOD DRAW Final Result Performing Organization Address [facility]/ZIP Co de Phone Number [employer] [address] [address], [employer] [address] [address] * (ABNORMAL) LIPID PANEL (09/22/2023 11:35 AM EDT) CHOLESTEROL, TOTAL 131 <200 mg/dL [facility] HDL CHOLESTEROL 39(L) > OR = 40 mg/dL [facility] TRIGLYCERIDES 75 <150 mg/dL [facility] LDL-CHOLESTEROL 76 99 mg/dL (calc) [facility] Comment: Reference range: <100 Desirable range <100 mg/dL for primary prevention; ?? <70 mg/dL for patients with CHD or diabetic patients with > or = 2 CHD risk factors. LDL-C is now calculated using the Brianna calculation, which is a validated novel method providing better accuracy than the Friedewald equation in the estimation of LDL-C. Art VANG et al. RAUL. 2013;310(19): 4268-2686 (http://education.[employer]/faq/IBP133) CHOL/HDLC RATIO 3.4 <5.0 (calc) [facility] NON-HDL CHOLESTEROL 92 <130 mg/dL (calc) [facility] Comment: For patients with diabetes plus 1 major ASCVD risk factor, treating to a non-HDL-C goal of <100 mg/dL (LDL-C of <70 mg/dL) is considered a therapeutic option. Blood Blood / Unknown 09/22/2023 1 1:35 AM EDT 09/22/2023 11:35 AM EDT [facility] - BLOOD DRAW Final Result [facility] [address] [place] [id number], [facility] [address] [phone] * (ABNORMAL) COMPREHENSIVE METABOLIC PANEL (09/22/2023 11:35 AM EDT) GLUCOSE 221(H) 65 - 99 mg/dL [facility] Comment: ?Fasting reference interval For someone without known diabetes, a glucose value >125 mg/dL indicates that they may have diabetes and this should be confirmed with a follow-up test. UREA NITROGEN (BUN) 35(H) 7 - 25 mg/dL [facility] CREATININE (blood) 1.52(H) 0.70 - 1.35 mg/dL [facility] EGFR 49(L) > OR = 60 mL/min/1. 73m2 [facility] BUN/CREATININE RATIO 23(H) 6 - 22 (calc) [facility] SODIUM 138 135 - 146 mmol/L [facility] POTASSIUM 4.7 3.5 - 5.3 mmol/L [facility] CHLORIDE 101 98 - 110 mmol/L [facility] CARBON DIOXIDE 29 20 - 32 mmol/L [facility] CALCIUM 10.3 8.6 - 10.3 mg/dL [facility] PROTEIN, TOTAL 7.4 6.1 - 8.1 g/dL [facility] ALBUMIN 4.1 3.6 - 5.1 g/dL [facility] GLOBULIN 3.3 1.9 - 3.7 g/dL (calc) [facility] ALBUMIN/GLOBULI N RATIO 1.2 1.0 - 2.5 (calc) [facility] BILIRUBIN, TOTAL 0.5 0.2 - 1.2 mg/dL [facility] ALKALINE PHOSPHATASE 100 35 - 144 U/L [facility] AST 17 10 - 35 U/L [facility] ALT 18 9 - 46 U/L [facility] Blood Blood / Unknown 09/22/2023 1 1:35 AM EDT 09/22/2023 11:35 AM EDT us [facility] - BLOOD DRAW Edited Result - Final [facility] [address] [address], [employer] [address] [phone] from Last 3 Months or Most Recently Relevant to Health Maintenance Insurance [employer] Member Subscriber Plan / Payer (Ef fective 2022-Present) Name:Alcides Patel Relation to Subscriber:Self Name:Amanda Alcides Payer ID:[id number] Type:Indemnity Address: [facility] [address] [place] [address] Care Teams Lien Searcher Relationship Specialty Start Date End Date Yunier Nunes PA [address] [place] [address] PCP - General FAMILY MEDICINE, [place] 09/19/23
--- OUTSIDE RECORDS SUMMARY | 2024-05-11 17:31 | XMS_ITS | Clinical Summary ---
Author Organization [facility] Address [address] [place] [address] Care Team Providers Care Art Objects Supervisor Name Role Phone Americo Salter MD Primary Care Provider [phone] Allergies No known active allergies Social History [...] age to complete this topic Care Teams Art Objects Supervisor Relationship Specialty Start Date End Date Americo Salter MD [address] [place] [phone] PCP - General 04/26/16
--- OUTSIDE RECORDS SUMMARY | 2024-05-11 17:31 | XMS_ITS | Clinical Summary ---
Author Organization [facility] Address [address] [place] [phone] Phone Care Team Providers Care X Ray Nurse Name Role Phone Jevon Adler MD Primary Care Provider [phone] Allergies Active Allergy Reactions Criticality Noted Date [...] 1.60(A) 0.60 - 1.30 mg/dL eGFR Non-Afr Bangladeshi 46 ALT (SGPT) 19 U/L AST (SGOT) 21 U/L Hemoglobin A1C 6.3(A) 4.0 - 6.0 11/26/2021 Historical Provider LAB BLOOD ORDERABLES Tanesha l Result from Last 3 Months or Most Recently Relevant to Health Maintenance Insurance [facility] CT Care Teams X Ray Nurse Relationship Specialty Start Date End Date Jevon Adler MD [address] PCP - General Internal Medicine 03/28/21
[2024-05-11 18:48] LABS: Creatinine Urine 72.35 mg/dL; Protein/Creatinine Ratio, Ur 0.83 (<0.2); Total Protein Urine Random 60 mg/dL (<12)
[2024-05-11 19:44] LABS: Anion Gap 9 (12-20); Blood Urea Nitrogen 26 mg/dL (9-16); Carbon Dioxide 27 mmol/L (22-29); Chloride 110 mmol/L (96-108); Estimated Glomerular Filt Rate 53; Potassium 4.3 mmol/L (3.3-5.1); Sodium 142 mmol/L (135-145)
== END 2024-05-11 13:57 | disposition home or self-care (01) ==
LOC: HO.HKASLDS 13:56
PROVIDERS: Visit Provider Internal Medicine Nephrology
DX: E11.21 Type 2 diabetes mellitus with diabetic nephropathy (principal); I12.9 Hypertensive chronic kidney disease with stage 1 through stage 4 chronic kidney disease, or unspecified chronic kidney disease; N18.31 Chronic kidney disease, stage 3a
CPT/HCPCS: 36415; 80051; 82565; 82570; 84156; 84520

== ENCOUNTER 2024-09-02 13:09 | Outpatient (REF) | payer BC, SELFPAY ==
--- OUTSIDE RECORDS SUMMARY | 2024-09-02 13:21 | XMS_ITS | Clinical Summary ---
Author Organization [facility] Address [address] [place] [phone] Phone Care Team Providers Care Aircraft Electronics Technical Officer Name Role Phone Jevon Adler MD Primary Care Provider [phone] Allergies Active Allergy Reactions Criticality Noted Date [...] Colorectal Cancer Screening: Sigmoidoscopy 06/29/2003 Pneumococcal Vaccine: 50+ Ye ars (2 of 2 - PCV) 05/30/2004 05/31/2003 Hepatitis B Vaccine (1 of 3 - Risk 3-dose series) 2014 Diabetes: Ophthalmology Exam 04/05/2021 Diabetes: Pedal Pulse Checked 04/05/2021 Diabetes: Sensory Foot Exam 04/05/2021 Diabetes: Visual Foot Exam 04/05/2021 Diabetes: Hemoglobin A1C 07/29/20242 025, 11/26/2021, 03/10/2017 Influenza Vaccine (#1) 2024 4, 11/23/2020, 11/13/2018, Additional history exists Pneumococcal Vaccine: Peds ( 0 to 5 Years) and At-Risk Patients (6 to 49 Years) Discontinued 05/31/2003 Procedures Procedure Name Priority Date/Time Associated Diagnosis Comments EXT RESULT ENTRY Routine 11/26/2021 from Last 3 Months or Most Recently Relevant to Health Maintenance Results * (ABNORMAL) EXT RESULT ENTRY (11/26/2021) Creatinine 1.60(A) 0.60 - 1.30 mg/dL eGFR Non-Afr Mexican 46 ALT (SGPT) 19 U/L AST (SGOT) 21 U/L Hemoglobin A1C 6.3(A) 4.0 - 6.0 11/26/2021 Historical Provider LAB BLOOD ORDERABLES Tanesha l Result from Last 3 Months or Most Recently Relevant to Health Maintenance Insurance [place] Care Teams Aircraft Electronics Technical Officer Relationship Specialty Start Date End Date Jevon Adler MD [address] PCP - General Internal Medicine 03/28/21
--- OUTSIDE RECORDS SUMMARY | 2024-09-02 13:21 | XMS_ITS | Clinical Summary ---
Author Organization [facility] Address [address] [place] [address] Care Team Providers Care Stem Lead Former Name Role Phone Yunier Nunes Primary Care Provider [phone] Source Comments PLEASE NOTE, if this patient [...] DAY FOR 30 DAYS 08/15/19 24 Active tobramycin-dexa methasone (TOBRADEX) 0.3-0.1 % ophthalmic susp INSTILL 1 DROP INTO BOTH EYES 3 TIMES A DAY 07/16/19 24 Active INSULIN LISPRO SUBQ Inject into the skin Active furosemide (LASIX) 40 mg tablet Take 40 mg by mouth 2 (two) times daily Active aspirin [address] tablet Take 81 mg by mouth once daily Active BD ULTRA-FINE MICRO PEN NEEDLE 32 [...] according to sliding scale. 15 mL 10/21/19 Active TRULICITY 1.5 mg/0.5 mL pen injectorIndicat ions:Type 2 diabetes mellitus without complication, with long-term current use of insulin ([facility]) Inject 1.5 mg into the skin once a week 5 mL 10/21/19 24 Active coffee xt-phosphatidyl serine (NOOTROPIC COFFEE-PS) 100-100 mg capIndications: Memory changes Take one tablet daily for mental accuity 90 Capsule 1 01/15/20 24 Active tirzepatide (MOUNJARO) 2.5 mg/0.5 mL pnijIndications :Body mass index (BMI) 45.0-49.9, adult ([facility]),Modera te binge-eating disorder,Morbid obesity with body mass index of 45.0-49.9 in adult ([facility]),Type 2 diabetes mellitus with stage 3b chronic kidney disease, with long-term current use of insulin ([facility]) INJECT 2.5 MG SUBCUTANEOUSLY WEEKLY 2 mL [...] pnijIndications :Body mass index (BMI) 45.0-49.9, adult ([facility]),Type 2 diabetes mellitus with stage 3b chronic kidney disease, with long-term current use of insulin ([facility]),Modera te binge-eating disorder INJECT 5 MG SUBCUTANEOUSLY WEEKLY 5 mL 2 07/13/19 25 Active amLODIPine (NORVASC) 10 mg tablet Take 1 Tablet by mouth once daily. 90 Tablet 1 07/22/19 25 Active clopidogreL (PLAVIX) 75 mg tablet Take 1 Tablet by mouth once daily. 90 Tablet 1 07/22/19 25 Active sildenafiL (VIAGRA) 50 mg tabletIndicatio ns:Erectile dysfunction, unspecified erectile dysfunction type Take 1 Tablet by mouth once daily as needed for erectile dysfunction. 30 Tablet 1 07/29/19 25 Active Active Problems Problem Noted Date Diagnosed Date Severe obesity ([facility]) 04/28/2024 Morbid obesity with body mas s index of 45.0-49.9 in adult ([facility]) 09/22/2023 Chronic kidney disease, stage 3a ([facility]) 05/29/2021 Generalized edema 05/29/2021 Microalbuminuria 05/29/2021 Nephrolithiasis 05/29/2021 Binge eating disorder 05/07/2021 Body mass index (BMI) 45.0-49.9, adult ([facility]) 05/07/2021 Coronary arteriosclerosis 05/07/2021 Diabetes mellitus type 2 ([facility]) 022 Diastolic heart failure ([facility]) 05/18/19 21 Overview (04/28/2024): Last Assessment & Plan: Appears [...] Assessment & Plan: Controlled NSTEMI (non-ST elevated myoc ardial infarction) ([facility]) 05/13/2016 Overview (04/28/2024): 04/2016--s/p PCI with KAYKAY to posterolateral branch of LCX Depression 03/11/2016 Hepatomegaly 06/09/2015 Phimosis 04/09/2014 DJD (degenerative joint disease) of knee 013 Leg edema, right 05/29/2012 Overview (04/28/2024): Negative venous ultrasound 2009 Venous stasis 05/29/2012 [...] Encounters Date Type Department Care Team Description 09/01/2024 10:00 AM EDT Office Visit [facility] [phone] [place] [address] Darvin Huertas, LISBETH from Last 3 Months Immunizations Immunization Administration Dates Next Due Flu, Adjuvant, 65y+ (Fluad) 11/23/2020 Flu, Cell Culture based, Pre servative Free, 6m+, Flucelvax 11/13/2018 Flu, High Dose, 65y+, Fluzon e High Dose 11/20/2021 Flu, Preservative Free 11/05/2017 INFLUENZA, SEASONAL, INJECTABLE 02/15/19 17,12/15/2013,12/03/2012,12/25,11/02/2009,12/21/2007 Influenza (FLUZONE), high-do se, trivalent, PF 12/10/2023 PNEUMOCOCCAL POLYSACCHARIDE PPV23 (Pneumovax 23) 05/31/2003 TDAP 03/10/2017 Td (adult) unspecified 05/31/2003 ZOSTER VACCINE, RECOMBINANT (SHINGRIX) ,04/13/2021 Social History Tobacco Use Types Packs/Day Years [...] 88 04/28/2024 3:09 PM EDT Temperature 36.8 C (98.2 F) 04/28/2024 3:09 PM EDT Respiratory Rate 16 04/28/2024 3:09 PM EDT Oxygen Saturation 100% 04/28/2024 3:09 PM EDT Inhaled Oxygen Concentration - - Weight 126.2 kg (278 lb 3.2 oz) 025 10:00 AM EDT Height 172.7 cm (5' 8 ) 04/28/2024 3:09 PM EDT Body Mass Index 42.3 04/28/2024 3:09 PM EDT Plan of Treatment Upcoming Encounters Date Type Department Care Team (Late st Contact Info) Description 09/06/2024 4:20 PM EDT Office Visit [facility] [address] [place] [phone] Yunier Nunes PA [address] [place], [place] [phone] Health Maintenance Due Date Last Done Comments Dental Examination [address] Colonography 06/29/1999 Flexible Sigmoidoscopy 06/29/1999 Imm-Pneumococcal 50+ (2 of 2 - PCV) 05/30/2004 05/31/2003 Urine Albumin Creatinine Rat io Screening 10/10/2022 10/10/2021, 05/07/2021 Depression Monitoring 12/23/2023 09/22/2023 Alcohol and Drug Screen 02/11/2024 09/22/2023 Eaf-VDUCO-08 ( season) 2024 12/10/2023, 01/27/2023, 11/20/2021, Additional history exists Diabetes Foot Exam 09/21/2024 09/22/2023 Falls Prevention 09/21/2024 09/22/2023 Lipid Screening 09/21/2024 09/22/2023, 03/10/2017 Imm-Influenza (#1) 2024 12/10/2023, 1 , 11/23/2020, Additional history exists Retinopathy Screening 10/14/2024 10/15/2023 FIT/gFOBT 10/20/2024 10/21/2023 Hemoglobin A1c 10/29/2024 04/28/2024, 12/0 06/2023, 09/22/2023, Additional history exists Serum Creatinine 01/06/2025 01/07/2024, 01/2024, 10/10/2021 Tobacco Screening 01/14/2025 01/15/2024, 09/22/2023 Annual Wellness (Adult): Ind icated (All Coverage) 04/28/2025 04/28/2024, 09/22/2023 Fecal DNA 10/20/2026 10/21/2023 Imm-DTaP/Tdap/Td (2 - Td or Tdap) 03/10/2027 018, 05/31/2003 Colonoscopy 03/11/2034 03/11/2024 Colorectal Cancer Screening 03/11/2034 Imm-Zoster, Recombinant Completed 07/30/2021, 04/13 Hepatitis C Screening Completed 09/22/2023 Procedures Procedure Name Priority Date/Time Associated Diagnosis Comments HGBA1C W/MPG Routine 04/28/2024 3:33 PM EDT Type 2 diabetes mellitus with stage 3b chronic kidney disease, with long-term current use of insulin ([facility]) HISTORIC COLONOSCOPY 03/11/2024 3:00 AM EST COLOGUARD Routine 10/21/2023 3:00 AM EDT Encounter for colorectal cancer screening using Cologuard test EYE EXAM 10/15/2023 3:00 AM EDT COMPREHENSIVE METABOLIC PANEL Routine 09/22/2023 11:35 AM EDT Body mass index (BMI) 45.0-49.9, adult ([facility]) Morbid obesity with body mass index of 45.0-49.9 in adult ([facility]) Binge eating disorder Chronic kidney disease, stage 3a ([facility]) Coronary arteriosclerosis Generalized edema History of non-ST elevation myocardial infarction (NSTEMI) Hypercholesterolemi a Hypertension, unspecified type Microalbuminuria Nephrolithiasis Obstructive sleep apnea syndrome Type 2 diabetes mellitus with other circulatory complication, without long-term current use of insulin ([facility]) Routine adult health maintenance Encounter for colorectal cancer screening using Cologuard test HEPATITIS C AB W/RFLX HCV RNA, QT, RT PCR Routine 09/22/2023 11:35 AM EDT Body mass index (BMI) 45.0-49.9, adult ([facility]) Morbid obesity with body mass index of 45.0-49.9 in adult ([facility]) Binge eating disorder Chronic kidney disease, stage 3a ([facility]) Coronary arteriosclerosis Generalized edema History of non-ST elevation myocardial infarction (NSTEMI) Hypercholesterolemi a Hypertension, unspecified type Microalbuminuria Nephrolithiasis Obstructive sleep apnea syndrome Type 2 diabetes mellitus with other circulatory complication, without long-term current use of insulin ([facility]) Routine adult health maintenance Encounter for colorectal cancer screening using Cologuard test LIPID PANEL Routine 09/22/2023 11:35 AM EDT Body mass index (BMI) 45.0-49.9, adult ([facility]) Morbid obesity with body mass index of 45.0-49.9 in adult ([facility]) Binge eating disorder Chronic kidney disease, stage 3a ([facility]) Coronary arteriosclerosis Generalized edema History of non-ST elevation myocardial infarction (NSTEMI) Hypercholesterolemi a Hypertension, unspecified type Microalbuminuria Nephrolithiasis Obstructive sleep apnea syndrome Type 2 diabetes mellitus with other circulatory complication, without long-term current use of insulin ([facility]) Routine adult health maintenance Encounter for colorectal cancer screening using Cologuard test from Last 3 Months or Most Recently Relevant to Health Maintenance Results * (ABNORMAL) HGBA1C W/MPG (04/28/2024 3:33 PM EDT) HEMOGLOBIN A1C 7.3(H) <5.7 % of total Hgb [facility] Comment: For someone without known diabetes, a [...] A1c for diagnosis of diabetes for children. MEAN PLASMA GLUCOSE 183 mg/dL (calc) [facility] Blood Blood / Unknown 04/28/2024 3 :33 PM EDT 04/28/2024 3:34 PM EDT Narrative [facility] - 04/29/2024 3:13 AM EDT FASTING:NO us Y[facility]ier [facility] - BLOOD DRAW Final Result [facility] [address] [address], [facility] [address] [address] * HISTORIC COLONOSCOPY (03/11/2024 3:00 AM EST) 03/11/2024 3:00 AM EST us Y[facility]ier [facility] PROCEDURES Final Result * COLOGUARD (10/21/2023 3:00 AM EDT) Stool Stool specimen / Unknown 10/21/2023 3:00 AM EDT us [facility] BODY FLUIDS AND STOOLS AMB ULATORY Edited Result - Final [facility] [address] [facility], [address] [facility] [id number] [place] [address], * EYE EXAM (10/15/2023 3:00 AM EDT) 10/15/2023 3:00 AM EDT us Yunier [facility] OTHER Edited Result - Final * HEPATITIS C AB W/RFLX HCV RNA, QT, RT PCR (09/22/2023 11:35 AM EDT) HEPATITIS C ANTIBODY NON-REACT JULIEN NON-REACT JULIEN [facility] Comment: HCV antibody was non-reactive. There is no laboratory evidence of HCV infection. In most cases, no further action is required. However, if recent HCV exposure is suspected, a test for HCV RNA (test code 42684) is suggested. For additional information please refer to http://education.AWID/faq/IDR08o2 (This link is being provided for informational/ educational purposes only.) Blood Blood / Unknown 09/22/2023 1 1:35 AM EDT 09/22/2023 11:35 AM EDT us Y[facility]ier [facility] - BLOOD DRAW Final Result [facility] [address] [address], [facility] [address] [phone] * (ABNORMAL) LIPID PANEL (09/22/2023 11:35 AM EDT) [facility] Signature CHOLESTEROL, TOTAL 131 <200 mg/dL [facility] HDL CHOLESTEROL 39(L) > OR = 40 mg/dL [facility] TRIGLYCERIDES 75 <150 mg/dL [facility] LDL-CHOLESTEROL 76 99 mg/dL (calc) [facility] Comment: Reference range: <100 Desirable range <100 mg/dL for primary prevention; <70 mg/dL for patients with CHD or diabetic patients with > or = 2 CHD risk factors. LDL-C is now calculated using the Brianna calculation, which is a validated novel method providing better accuracy than the Friedewald equation in the estimation of LDL-C. Art SS et al. RAUL. 2013;310(19): 6305-1515 (http://education.Operating Analytics/faq/FBS776) CHOL/HDLC RATIO 3.4 <5.0 (calc) [facility] NON-HDL CHOLESTEROL 92 <130 mg/dL (calc) [facility] Comment: For patients with diabetes plus 1 major ASCVD risk factor, treating to a non-HDL-C goal of <100 mg/dL (LDL-C of <70 mg/dL) is considered a therapeutic option. Blood Blood / Unknown 09/22/2023 1 1:35 AM EDT 09/22/2023 11:35 AM EDT us [facility] - BLOOD DRAW Final Result Performing Organization Address City/[facility]/ZIP Co de Phone Number [facility] [address] [address], [facility] [address] [address] * (ABNORMAL) COMPREHENSIVE METABOLIC PANEL (09/22/2023 11:35 AM EDT) GLUCOSE 221(H) 65 - 99 mg/dL [facility] Comment: Fasting reference interval For someone without known diabetes, a glucose value >125 mg/dL indicates that they may have diabetes and this should be confirmed with a follow-up test. UREA NITROGEN (BUN) 35(H) 7 - 25 mg/dL [facility] CREATININE (blood) 1.52(H) 0.70 - 1.35 mg/dL [facility] EGFR 49(L) > OR = 60 mL/min/1. 73m2 [facility] BUN/CREATININE RATIO 23(H) 6 - 22 (calc) [facility] SODIUM 138 135 - 146 mmol/L [facility] POTASSIUM 4.7 3.5 - 5.3 mmol/L [facility] CHLORIDE 101 98 - 110 mmol/L [facility] CARBON DIOXIDE 29 20 - 32 mmol/L [facility] CALCIUM 10.3 8.6 - 10.3 mg/dL [facility] PROTEIN, TOTAL 7.4 6.1 - 8.1 g/dL [facility] ALBUMIN 4.1 3.6 - 5.1 g/dL [facility] GLOBULIN 3.3 1.9 - 3.7 g/dL (calc) [facility] ALBUMIN/GLOBULI N RATIO 1.2 1.0 - 2.5 (calc) [facility] BILIRUBIN, TOTAL 0.5 0.2 - 1.2 mg/dL [facility] ALKALINE PHOSPHATASE 100 35 - 144 U/L [facility] AST 17 10 - 35 U/L [facility] ALT 18 9 - 46 U/L [facility] Blood Blood / Unknown 09/22/2023 1 1:35 AM EDT 09/22/2023 11:35 AM EDT us [facility] - BLOOD DRAW Edited Result - Final [facility] [address] [address], [facility] [address] [place] [address] from Last 3 Months or Most Recently Relevant to Health Maintenance Insurance [employer]UE [employer]/ NIA Care Teams Stem Lead Former Relationship Specialty Start Date End Date Yunier Nunes PA [address] [place] [address] PCP - General FAMILY MEDICINE PA 09/19/23
--- OUTSIDE RECORDS SUMMARY | 2024-09-02 13:21 | XMS_ITS | Clinical Summary ---
Author Organization [facility] Address [address] [place] [address] Care Team Providers Care Occupational Therapy Director Name Role Phone Americo Salter MD Primary Care Provider [phone] Allergies No known active allergies Social History Tobacco Use Types Packs/Day Years Used Date Smoking Tobacco: Never Assessed Sex and Gender Information Value Date Recorded Sex Assigned at Not on file Legal Sex Male 11:42 AM EDT Gender Identity Not on file Sexual Orientation Not on file Last Filed Vital Signs Vital Sign Reading Time Taken Comments Blood Pressure 123/67 04/26/2016 4:45 PM EDT Pulse 74 04/26/2016 4:45 PM EDT Temperature 36.6 C (97.8 F) 04/26/2016 4:45 PM EDT Respiratory Rate 20 04/26/2016 4:45 PM EDT [...] Zoster (Shingles) Vaccine (1 of 2) 2004 COVID-19 Vaccine ( - 2023-2 5 season) 2023 Influenza Vaccine 09/10/2024 RSV Vaccine 60 years and old er and Patients (1 - 1-dose 75+ series) 2029 Hepatitis B Vaccines Aged Out No long er eligible based on patient's age to complete this topic Insurance [employer] [place] [employer] [place] Care Teams Occupational Therapy Director Relationship Specialty Start Date End Date Americo Salter MD [address] [place] [id number] PCP - General 04/26/16
--- OUTSIDE RECORDS SUMMARY | 2024-09-02 13:21 | XMS_ITS | Clinical Summary ---
Author Organization [facility] Address [address] [place] [address] Phone Care Team Providers Care Insulation Supervisor Name Role Phone Yunier Nunes Primary Care Provider [phone] Allergies Active Allergy Reactions Criticality Noted Date [...] Diagnosed Date Morbid obesity with BMI of 4 5.0-49.9, adult ([facility] V24, [facility] V28) 03/08/2024 Diastolic heart failure ([facility] V24, [facility] V2 8) 05/17/2020 Overview (03/08/2024): Last Assessment & Plan: [...] Controlled NSTEMI (non-ST elevated myoc ardial infarction) ([facility] V24, [facility] V28) 05/13/2016 Overview (03/08/2024): 04/2016--s/p PCI with KAYKAY [...] type diabetes mellitus with renal manifestations, uncontrolled(250.42) (CMS/HCC V24, [facility] V28) 05/07/2005 Overview (03/08/2024): Last Assessment & Plan: Lantus Titration Protocol-Fasting blood sugar 160-180. Lantus insulin increased to 37 units. Pt will increase dose according to protocol. See note 09/17/11 Encounters Date Type Department Care Team Description 06/11/2024 Telephone [facility] - [address] [place] [address] Mikie Vazquez MD No Show from Last 3 Months Immunizations Name Administration Dates Next Due Influenza trivalent, with pr eservative (Fluzone; Afluria) 6mo and older 02/16/2016,12/15/2013,12/03/2012,12/25,11/02/2009,12/21/2007 Pneumococcal polysaccharide 23 valent (Pneumovax 23) 2yo and older 05/31/2003 Td, Unspecified 05/31/2003 Tdap Tetanus diptheria acell ular pertussis (Boostrix; Adacel) 7yo and older 03/10/2017 Surgical History Surgery Date Site/Laterality Comments COLONOSCOPY W/ POLYPECTOMY 2005 PROCEDURE: MI COLSC FLX W/RMVL OF TUMOR POLYP LESION SNARE TQ; COMMENT: Zeroogian; large inflammatory polyp. HERNIA REPAIR PROCEDURE: HISTORICAL HERNIA REPAIR/UMB CORONARY STENT PLACEMENT 04/27/16 [facility] PROCEDURE: STENT, CORONARY, ELOY; COMMENT: stent OM [...] obesity with BMI of 4 5.0-49.9, adult ([facility] V24, [facility] V28) 06/24/2016 DX:Morbid obesity wit h BMI of 45.0-49.9, adult ([facility]) Family History Medical History Relation Name Comments [...] 75 03/11/2024 9:32 AM EST Temperature 36.8 C (98.2 F) 03/11/2024 9:12 AM EST Respiratory Rate 12 03/11/2024 9:32 AM EST Oxygen Saturation 96% 03/11/2024 9:32 AM EST Inhaled Oxygen Concentration - - Weight 127 kg (280 lb) 03/11/2024 8:24 AM EST Height 167.6 cm (5' 6 ) 03/11/2024 8:24 AM EST Body Mass Index 45.19 03/11/2024 8:24 AM EST Plan of Treatment Upcoming Encounters Date Type Department Care Team (Late st Contact Info) Description 11/17/2024 9:20 AM EDT Office Visit [facility] - [facility] [address] [phone] Mikie Vazquez MD [address] [address] Health Maintenance Due Date Last Done Comments Diabetes: Annual Foot Exam 1964 Diabetes: Annual Retina Eye Exam 1965 Pneumococcal Vaccine: 50+ Years (2 of 2 - PCV) 05/30/2004 05/31/2003 RSV Immunization Adult Patients (1 - Risk 60-74 years 1-dose series) 2014 Social Influencers of Health Screening 01/09/2022 Diabetes: Annual Urine Albumin-Creatinine Ratio (uACR) 01/25/2022 06/10/2017 Depression Screening 02/11/2024 COVID-19 Vaccine (7 - Pfizer risk season) 2024 12/10/2023, 01/27/2023, 11/20/2021, Additional history exists Influenza Vaccine (#1) 2024 , 11/20/2021, 11/23/2020, Additional history exists Diabetes: Blood Sugar Control Test (HGBA1C) 10/29/2024 [...] Colorectal Cancer Screening: FIT-DNA (Cologuard) Discontinued 10/21/2023 HIB Vaccines Aged Out No longer eligi [...] age to complete this topic Meningococcal B Vaccine Aged Out No l onger eligible based on patient's age to complete this topic RSV Immunization Patients Under 20 months Aged Out No longer eligible based on patient's age to complete this topic Varicella Vaccines Aged Out No longer eligible based on patient's age to complete this topic Procedures Procedure Name Priority Date/Time Associated Diagnosis Comments COLONOSCOPY Routine 03/11/2024 9:11 AM EST Colon cancer screening CREATININE, SERUM Routine 01/07/2024 12: 07 PM EST Diabetic glomerulopathy (CMS/HCC V24, CMS/HCC V28) Benign hypertension Stage 3a chronic kidney disease (CMS/HCC V24, CMS/HCC V28) URINE ALBUMIN CREATININE RATIO Routine 06/10/2017 HEMOGLOBIN A1C Routine 03/10/2017 LIPID PANEL Routine 03/10/2017 HEPATITIS C SCREENING Routine 09/04/2009 from Last 3 Months or Most Recently Relevant to Health Maintenance Results * COLONOSCOPY Anesthesia - MAC; [facility] ENDOSCOPY (03/11/2024 9:11 AM EST) Anatomical Region Laterality Modality Endoscopy 03/11/2024 8:44 AM EST Impressions 03/11/2024 9:15 AM EST - One 5 mm polyp in the transverse colon, removed with a cold snare. Resected and retrieved. - The examination was otherwise normal on direct and retroflexion views. Recommendation: - Await pathology results. - Repeat colonoscopy in 5 years for surveillance. Narrative 03/11/2024 9:15 AM EST [facility] GI Patient Name: Alcides Patel Procedure Date: 03/11/2024 8:44 AM Date of : 1955 Age: 68 Room: ROOM 16 Gender: Male Note Status: Finalized Attending MD: Anton Palencia MD, Procedure Date No Time: 03/11/2024 Procedure: Colonoscopy Indications: High risk colon cancer surveillance: Personal history of colonic polyps Providers: Anton Palencai MD Referring MD: Anton Palencia MD Medicines: Propofol per Anesthesia Complications: No immediate complications. Estimated Blood Loss: Estimated blood loss: none. Procedure: Pre-Anesthesia Assessment: - ASA Grade Assessment: III - A patient with severe systemic disease. After I obtained informed consent, the scope was passed under direct vision. Throughout the procedure, the patient's blood pressure, pulse, and oxygen [...] The polyp was removed with a cold snare. Resection and retrieval were complete. The exam was otherwise without abnormality on direct and retroflexion views. Procedure Code(s): --- Professional --- 85676, Colonoscopy, flexible; with removal of tumor(s), polyp(s), or other lesion(s) by snare technique Diagnosis Code(s): --- Professional --- Z86.010, Personal history of colonic polyps D12.3, Benign neoplasm of transverse colon (hepatic flexure or splenic flexure) CPT copyright 2020 [employer] [place] [employer]. All rights reserved. The codes documented in this report are preliminary and upon cad programmer review may be revised to meet current compliance requirements. Anton Palencia MD 03/11/2024 9:15:12 AM This report has been signed electronically.Anton Palencia MD Number of Addenda: 0 Note Initiated On: 03/11/2024 8:44 AM Scope In: Scope Out: Endoscopy Department at [facility] - [address] [place] [phone] Procedure Note Anton Palencia MD - 03/11/2024 [facility] GI Patient Name: Alcides Patel [...] retroflexion views. Procedure Code(s): --- Professional --- 91298, Colonoscopy, flexible; with removal of tumor(s), polyp(s), or other lesion(s) by snare technique Diagnosis Code(s): --- Professional --- Z86.010, Personal history of colonic polyps D12.3, Benign neoplasm of transverse colon (hepatic flexure or splenic flexure) CPT copyright 2020 [employer] [place] [employer]. All rights reserved. The codes documented in this report are preliminary and upon cad programmer reviewmay be revised to meet current compliance requirements. Anton Palencia MD 03/11/2024 9:15:12 AM This report has been signed electronically.Anton Palencia MD Number of Addenda: 0 Note Initiated On: 03/11/2024 8:44 AM Scope In: Scope Out: Endoscopy Department at [facility] - [address] [place] [phone] IMPRESSION: - One 5 mm polyp in the transverse colon, removed with a cold snare. Resected and retrieved. - The examination was otherwise normal on directand retroflexion views. Recommendation: - Await pathology results. - Repeat colonoscopy in 5 years for surveillance. us Anton Palencia MD GI~PROCEDURE ORDERABLES Fin al Result * (ABNORMAL) Creatinine (01/07/2024 12:07 PM EST) Creatinine 1.53(H) 0.70 - 1.30 mg/dL LAB CHEMISTRY METHOD 01/07/2024 6:[address] [facility] eGFR 49(L) >=60 mL/min/1. 73m2 LAB CHEMISTRY METHOD 01/07/2024 6:[address] [facility] ([facility]) [facility] Comment:Calculation based on the Chronic Kidney Disease Epidemiology Collaboration (CKD-EPI) equation refit without adjustment for race. Blood Venous blood specimen / Unknown Venipuncture / Unknown 01/07/2024 12:07 PM EST 01/07/2024 12:53 PM EST Gary Schmidt MD LAB BLOOD ORDERABLES Final Resul t [facility] ([facility]) [facility] [address] [place] [address], [place] [phone] * Urine Albumin Creatinine Ratio (06/10/2017) Pathologist [facility] Urine Albumin Creatinine Ratio abstracted Result [facility] Historical Provider HEALTH MAINTENANCE Final Result * (ABNORMAL) Hemoglobin A1c (03/10/2017) [facility] Hemoglobin A1C 10.1(A) 4.0 - 6.0 % Blood Venous blood specimen / Unknown Result [facility] Historical Provider LAB BLOOD ORDERABLES Tanesha l Result * (ABNORMAL) Lipid panel (03/10/2017) [facility] LDL/HDL Ratio 4 0 - 4 Triglycerides 120 0 - 150 mg/dL Cholesterol 134 0 - 200 mg/dL HDL 38(A) >=40 mg/dL LDL Cholesterol 72 0 - 100 mg/dL Blood Venous blood specimen / Unknown Result [facility] Historical Provider LAB BLOOD ORDERABLES Tanesha l Result * Hepatitis C Screening (09/04/2009) Pathologist [facility] Hepatitis C Screening abstracted Result [facility] Historical Provider HEALTH MAINTENANCE Final Result from Last 3 Months or Most Recently Relevant to Health Maintenance Insurance MEDICARE [facility]) Care Teams Insulation Supervisor Relationship Specialty Start Date End Date Yunier Nunes PA [address] [place] [address] PCP - General Physician Summer Analyst 12/25/23
[2024-09-02 17:49] LABS: Anion Gap 13 (12-20); Blood Urea Nitrogen 26 mg/dL (9-16); Carbon Dioxide 24 mmol/L (22-29); Chloride 108 mmol/L (96-108); Estimated Glomerular Filt Rate 56; Potassium 4.3 mmol/L (3.3-5.1); Sodium 141 mmol/L (135-145)
== END 2024-09-02 13:10 | disposition home or self-care (01) ==
LOC: HO.HKASLDS 13:09
PROVIDERS: Visit Provider Internal Medicine Nephrology
DX: I12.9 Hypertensive chronic kidney disease with stage 1 through stage 4 chronic kidney disease, or unspecified chronic kidney disease (principal); E11.22 Type 2 diabetes mellitus with diabetic chronic kidney disease; E11.21 Type 2 diabetes mellitus with diabetic nephropathy; N18.31 Chronic kidney disease, stage 3a; R80.8 Other proteinuria
CPT/HCPCS: 36415; 80051; 82565; 84520

== ENCOUNTER 2024-09-07 14:00 | Outpatient (AMB) | payer BC, SELFPAY ==
--- OUTSIDE RECORDS SUMMARY | 2024-09-06 16:20 | XMS_ITS | Encounter Summary ---
Author Organization [facility] Address [address] [place] [address] Care Team Providers Care Metal Sponge Making Machine Operator Name Role Phone Yunier Nunes Primary Care Provider [phone] Reason for Referral * Orthopedics (Routine) - New Request Specialty Diagnoses / Procedures Referred By Kelby perdomo Referred To Contact Orthopedics Diagnoses Chronic pain of both knees Yunier Nunes PA [address] [place] [address] Phone: tel: fax: Referral ID Status Reason Start Date Expiration Date Visits Requested Visits Authorized [id number] New Request Specialty Services Required 09/06/2024 09/06/2025 1 1 Comments Bilateral knee pain, please evaluate for possible injections. Reason for Visit * Reason Comments Appointment medication meanageme nt Encounter Details Date Type Department Care Team (Late st Contact Info) Description 09/06/2024 4:20 PM EDT Office Visit [facility] [address] [place] [address] Yunier Nunes PA [address] [place] [address] Social History Tobacco Use Types Packs/Day Years [...] Orientation Straight 09/22/2023 8: 20 AM PDT documented as of this encounter Last Filed Vital Signs Vital Sign Reading Time Taken Comments Blood Pressure 151/61 09/06/2024 3:48 PM EDT Pulse 64 09/06/2024 3:48 PM EDT Temperature 36.8 C (98.2 F) 09/06/2024 3:48 PM EDT Respiratory Rate 16 09/06/2024 3:48 PM EDT Oxygen Saturation 95% 09/06/2024 3:48 PM EDT Inhaled Oxygen Concentration - - Weight 124.7 kg (275 lb) 09/06/2024 3:48 PM EDT Height 172.7 cm (5' 8 ) 09/06/2024 3:48 PM EDT Body Mass Index 41.81 09/06/2024 3:48 PM EDT documented in this encounter Progress Notes * REECE Recio - 09/06/2024 3:59 PM EDT HPI Alcides Patel is a 69 year old, male, here today for weight loss. He would like to increase Mounjaro dose. Doing well on meds, no SE. Worried about increased urination. Patient Active Problem List Diagnosis Binge eating disorder Body mass index (BMI) 45.0-49.9, adult ([facility]) Morbid obesity with body mass index of 45.0-49.9 in adult ([facility]) Chronic kidney disease, stage 3a ([facility]) Coronary arteriosclerosis Generalized edema History of myocardial infarction Hyperlipidemia Essential hypertension Microalbuminuria Nephrolithiasis Sleep apnea Diabetes mellitus type 2 ([facility]) Achilles tendon tear Amputation finger CKD (chronic kidney disease) stage 2, GFR 60-89 ml/min Colon polyp Depression Diastolic heart failure ([facility]) DJD (degenerative joint disease) of knee Erectile dysfunction Hepatomegaly Leg edema, right NSTEMI (non-ST elevated myocardial infarction) ([facility]) Onychomycosis Phimosis Severe obesity ([facility]) Venous stasis Current Outpatient Medications Medication Instructions amLODIPine (NORVASC) 10 mg, oral, Daily aspirin 81 mg, oral, Daily atorvastatin (LIPITOR) 40 mg, oral, Daily BD ULTRA-FINE MICRO PEN NEEDLE 32 gauge x 1/4 ndle USE DIRECTED FOR USE WITH INSULIN PEN 3 TIMES DAILYStrength: 32 gauge x 1/4 clopidogreL (PLAVIX) 75 mg, oral, Daily coffee xt-phosphatidyl serine (NOOTROPIC COFFEE-PS) 100-100 mg cap Take one tablet daily for mentalaccuity dapagliflozin propanediol 10 mg, oral, Daily DEXCOM G6 SENSOR am[place] USE DIRECTED FOR GLUCOSE MONITORING DEXCOM G6 TRANSMITTER am[place] Use to test blood sugar as directed.Use to test blood sugar as directed. furosemide (LASIX) 40 mg, oral, 2 times daily INSULIN LISPRO SUBQ subcutaneous losartan (COZAAR) 75 mg, oral, Daily metoprolol tartrate (LOPRESSOR) 100 mg tablet TAKE 1 TABLET BY MOUTH 2 TIMES A DAY FOR 30 DAYS Mounjaro 7.5 mg, subcutaneous, Weekly [START ON 10/06/2024] Mounjaro 12.5 mg, subcutaneous, Weekly [START ON 11/05/2024] Mounjaro 15 mg, subcutaneous, Weekly NOVOLOG FLEXPEN U-100 INSULIN 100 unit/mL (3 mL) Inject 2-20 units TID according to sliding scale. sildenafiL (VIAGRA) 50 mg, oral, DAILY PRN tadalafiL (CIALIS) 20 mg, oral, DAILY PRN testosterone (ANDROGEL) 20.25 mg/1.25 gram (1.62 %) gel pump 4 PUMP(S) APPLIED TOPICALLY ONCE A DAY(IN THE MORNING) tirzepatide (MOUNJARO) 2.5 mg/0.5 mL pnij INJECT 2.5 MG SUBCUTANEOUSLY WEEKLY tirzepatide (MOUNJARO) 5 mg/0.5 mL pnij INJECT 5 MG SUBCUTANEOUSLY WEEKLY tobramycin-dexamethasone (TOBRADEX) 0.3-0.1 % ophthalmic susp INSTILL 1 DROP INTO BOTH EYES 3 TIMESA DAY Trulicity 1.5 mg, subcutaneous, Weekly ROS + he denies any fever, chills, Nausea, vomiting, headache, dizziness, chest pain, sob, cough, Abd pain, change in urinary or bowel habits. No Rash, Joint pains. PE Vitals reviewed Blood pressure (!) 151/61, pulse 64, temperature 98.2 ??F (36.8 ??C), temperature source Oral, resp. rate 16, height 5' 8 (1.727 m), weight 275 lb (124.7 kg), SpO2 95%. General: NAD HEENT: PERRL, EOMI CV: RRR, S1S2+ Lungs: CTA bilateral Abd: soft, NT, ND, BS+ Ext: No edema, pulses++ A&P E11.9 Diabetes mellitus type 2 ([facility]) (primary encounter diagnosis) Plan : MOUNJARO 7.5 MG/0.5 ML SUBCUTANEOUS PEN INJECTOR - Inject 7.5 mg into the skin once a week for 30 days. MOUNJARO 12.5 MG/0.5 ML SUBCUTANEOUS PEN INJECTOR - Inject 12.5 mg into the skin once a week for 30 days. MOUNJARO 15 MG/0.5 ML SUBCUTANEOUS PEN INJECTOR - Inject 15 mg into the skin once a week for 30 days. TESTOSTERONE, FREE AND TOTAL COMPREHENSIVE METABOLIC PANEL Z68.42 Body mass index (BMI) 45.0-49.9, adult ([facility]) Plan : MOUNJARO 7.5 MG/0.5 ML SUBCUTANEOUS PEN INJECTOR - Inject 7.5 mg into the skin once a week for 30 days. MOUNJARO 12.5 MG/0.5 ML SUBCUTANEOUS PEN INJECTOR - Inject 12.5 mg into the skin once a week for 30 days. MOUNJARO 15 MG/0.5 ML SUBCUTANEOUS PEN INJECTOR - Inject 15 mg into the skin once a week for 30 days. F50.811 Moderate binge-eating disorder Plan : MOUNJARO 7.5 MG/0.5 ML SUBCUTANEOUS PEN INJECTOR - Inject 7.5 mg into the skin once a week for 30 days. MOUNJARO 12.5 MG/0.5 ML SUBCUTANEOUS PEN INJECTOR - Inject 12.5 mg into the skin once a week for 30 days. MOUNJARO 15 MG/0.5 ML SUBCUTANEOUS PEN INJECTOR - Inject 15 mg into the skin once a week for 30 days. E66.01,Z68.42 Morbid obesity with body mass index of 45.0-49.9 in adult ([facility]) Plan : MOUNJARO 7.5 MG/0.5 ML SUBCUTANEOUS PEN INJECTOR - Inject 7.5 mg into the skin once a week for 30 days. MOUNJARO 12.5 MG/0.5 ML SUBCUTANEOUS PEN INJECTOR - Inject 12.5 mg into the skin once a week for 30 days. MOUNJARO 15 MG/0.5 ML SUBCUTANEOUS PEN INJECTOR - Inject 15 mg into the skin once a week for 30 days. E78.5 Hyperlipidemia, unspecified hyperlipidemia type Plan : MOUNJARO 7.5 MG/0.5 ML SUBCUTANEOUS PEN INJECTOR - Inject 7.5 mg into the skin once a week for 30 days. MOUNJARO 12.5 MG/0.5 ML SUBCUTANEOUS PEN INJECTOR - Inject 12.5 mg into the skin once a week for 30 days. MOUNJARO 15 MG/0.5 ML SUBCUTANEOUS PEN INJECTOR - Inject 15 mg into the skin once a week for 30 days. I10 Essential hypertension Plan : MOUNJARO 7.5 MG/0.5 ML SUBCUTANEOUS PEN INJECTOR - Inject 7.5 mg into the skin once a week for 30 days. MOUNJARO 12.5 MG/0.5 ML SUBCUTANEOUS PEN INJECTOR - Inject 12.5 mg into the skin once a week for 30 days. MOUNJARO 15 MG/0.5 ML SUBCUTANEOUS PEN INJECTOR - Inject 15 mg into the skin once a week for 30 days. G47.39 Other sleep apnea Plan : MOUNJARO 7.5 MG/0.5 ML SUBCUTANEOUS PEN INJECTOR - Inject 7.5 mg into the skin once a week for 30 days. MOUNJARO 12.5 MG/0.5 ML SUBCUTANEOUS PEN INJECTOR - Inject 12.5 mg into the skin once a week for 30 days. MOUNJARO 15 MG/0.5 ML SUBCUTANEOUS PEN INJECTOR - Inject 15 mg into the skin once a week for 30 days. E29.1 Hypogonadism in male Plan : TESTOSTERONE, FREE AND TOTAL COMPREHENSIVE METABOLIC PANEL M25.561,M25.562,G89.29 Chronic pain of both knees Plan : REFERRAL TO ORTHOPEDICS Return in about 8 weeks (around 11/01/2024) for weight loss. documented in this encounter Miscellaneous Notes * Patient Instructions - REECE Recio - 09/06/2024 4:07 PM EDT If you are not able to keep your appointment please call 24-48 hours before your appointment to cancel or reschedule. documented in this encounter Plan of Treatment Scheduled Orders Name Type Priority Associated Diagnoses Orde r Schedule TESTOSTERONE, FREE AND TOTAL Routine Lab Routine Diabetes mellitus type 2 ([facility]) Hypogonadism in male Ordered: 09/06/2024 Scheduled Referrals Name Type Priority Associated Diagnoses Orde r Schedule REFERRAL TO ORTHOPEDICS Referral Routine Chronic pain of both knees Ordered: 09/06/2024 documented as of this encounter Procedures Procedure Name Priority Date/Time Associated Diagnosis Comments COMPREHENSIVE METABOLIC PANEL Routine 09/06/2024 4:12 PM EDT Diabetes mellitus type 2 ([facility]) Hypogonadism in male documented in this encounter Results * (ABNORMAL) COMPREHENSIVE METABOLIC PANEL Routine (09/06/2024 4:12 PM EDT) GLUCOSE 75 65 - 99 mg/dL 09/07/2024 6:27 AM EDT [facility] UREA NITROGEN (BUN) 31(H) 7 - 25 mg/dL 09/07/2024 6:27 AM EDT [facility] CREATININE (blood) 1.49(H) 0.70 - 1.28 mg/dL 09/07/2024 6:27 AM EDT [facility] EGFR 50(L) > OR = 60 mL/min/1. 73m2 09/07/2024 6:27 AM EDT [facility] BUN/CREATININE RATIO 21 6 - 22 (calc) 09/07/2024 6:27 AM EDT [facility] SODIUM 137 135 - 146 mmol/L 09/07/2024 6:27 AM EDT [facility] POTASSIUM 4.1 3.5 - 5.3 mmol/L 09/07/2024 6:27 AM [employer] CHLORIDE 102 98 - 110 mmol/L 09/07/2024 6:27 AM EDT [employer] [facility] CARBON DIOXIDE 26 20 - 32 mmol/L 09/07/2024 6:27 AM EDT [employer] [facility] CALCIUM 9.7 8.6 - 10.3 mg/dL 09/07/2024 6:27 AM EDT [employer] [facility] PROTEIN, TOTAL 7.2 6.1 - 8.1 g/dL 09/07/2024 6:27 AM EDT [employer] [facility] ALBUMIN 4.3 3.6 - 5.1 g/dL 09/07/2024 6:27 AM [facility] GLOBULIN 2.9 1.9 - 3.7 g/dL (calc) 09/07/2024 6:27 AM [employer] ALBUMIN/GLOBULI N RATIO 1.5 1.0 - 2.5 (calc) 09/07/2024 6:27 AM [employer] BILIRUBIN, TOTAL 0.9 0.2 - 1.2 mg/dL 09/07/2024 6:27 AM [employer] [facility] ALKALINE PHOSPHATASE 93 35 - 144 U/L 09/07/2024 6:27 AM [employer] [facility] AST 21 10 - 35 U/L 09/07/2024 6:27 AM [employer] [facility] ALT 22 9 - 46 U/L 09/07/2024 6:27 AM [employer] [facility] Blood Blood / Unknown 09/06/2024 4 :12 PM EDT 09/07/2024 4:44 AM EDT Narrative [employer] [facility] - 09/07/2024 6:48 AM EDT . Fasting reference interval . [facility] - BLOOD DRAW Final Result [employer] [address] [address], [employer] [address] [phone] documented in this encounter Visit Diagnoses Diagnosis Diabetes mellitus type 2 (CMS & HHS-HCC)- Primary Body mass index (BMI) 45.0-49.9, adult ([facility]) Moderate binge-eating disorder Morbid obesity with body mass index of 45.0-49.9 in adult ([facility]) Morbid obesity Hyperlipidemia, unspecified hyperlipidemia type Essential hypertension Other sleep apnea Hypogonadism in male Chronic pain of both knees documented in this encounter Additional Health Concerns Assessment Noted Time PHQ-9 Depression Total Score: 9 09/22/19 24 11:17 AM PDT documented as of this encounter Care Teams Metal Sponge Making Machine Operator Relationship Specialty Start Date End Date Yunier Nunes PA [address] [place] [address] PCP - General FAMILY MEDICINEREECE 09/19/23 documented as of this encounter
--- NOTE | 2024-09-07 14:04 | HO.NEPHOV_ITS ---
Vital Signs 09/07/24 14:13 Height 5 ft 8 in Weight 276 lb 4 oz BMI 42.0 BP 160/80 H Blood Pressure Location Lt brachial Position Sitting Pulse 74 Pulse Source Pulse Oximeter Pulse Oximetry (%) 95 Oxygen Delivery Method Room Air Intake Visit Reasons: 3mon follow-up w/labs-LVM Electrical Maintenance Supervisor Required: No Accompanied by: Self / Same As Patient Allergies irbesartan Allergy (Verified 09/07/24 14:12) Unknown lactose Allergy (Verified 09/07/24 14:12) Unknown latex Allergy (Verified 09/07/24 14:12) Unknown lisinopril Allergy (Verified 09/07/24 14:12) Unknown naproxen Allergy (Verified 09/07/24 14:12) Unknown HPI Comments Details: Alcides was seen in follow-up of his chronic kidney disease on a backdrop of diabetes mellitus, hypertension and proteinuria. He is employed and is active. He has a very strong family history of end-stage renal disease and expressed his fears of needing dialysis. He refrains from nonsteroidal anti-inflammatory use. He does not have any chest pain, shortness of breath, proximal nocturnal dyspnea, orthopnea, pedal edema, orthostatic symptoms, hematuria, dysuria. His blood sugar control is better but not optimal. He has H/O of gout and was treated with colchicine. He claims to be compliant with his medications. He maintains good hydration. He denied any active systemic symptoms. He has not taken his BP medications today [facility] Medical History (Updated 03/13/23 @ 22:12 by Gary Schmidt MD) Hypertension Proteinuria T2DM (type 2 diabetes mellitus) Chronic kidney disease, stage 3a Surgical History History of gastric bypass Family History Brother Diabetes Kidney disease Mother Diabetes Social History Alcohol intake: never Patient Tobacco Use Status: Never used Tobacco Review of Systems Const All systems reviewed & are unremarkable except as noted in HPI and below Physical Exam Const General: comfortable and no acute distress Orientation/consciousness: patient oriented x3 HEENT Head: Yes normocephalic Mouth: Normal oral and palatal mucosa present Eyes EOM: EOMs intact bilaterally Neck Neck: Yes supple Resp Auscultation: clear to auscultation bilaterally Cardio Jugular venous distension: no JVD Rate: regular rate GI Palpation (GI): Soft to palpation Auscultation: normal bowel sounds General: Yes no CVA tenderness Back/Spine/Pelvis Back: no CVA tenderness Skin General skin exam: no rashes or lesions noted Neuro General: patient oriented x3 and moves all extremities Extrem General: Yes no pedal edema Results Reviewed Nephrology Results: Sodium, (135-145) 141 mmol/L 09/02/24 Potassium, (3.3-5.1) 4.3 mmol/L 09/02/24 Chloride, (96-108) 108 mmol/L 09/02/24 Carbon Dioxide, (22-29) 24 mmol/L 09/02/24 BUN, (9-16) 26 mg/dL H 09/02/24 Creatinine, (0.5-1.4) 1.27 mg/dL 09/02/24 Calcium, (8.4-10.2) 9.3 mg/dL 05/20/23 Urine Creatinine 72.35 mg/dL 05/11/24 Protein/Creatinin Ratio, (<0.2) 0.83 H 05/11/24 Assessment & Plan Assessment & Plan (1) Chronic kidney disease, stage 3a: Code(s): N18.31 - Chronic kidney disease, stage 3a Category: Medical (2) Diabetic nephropathy: Code(s): E11.21 - Type 2 diabetes mellitus with diabetic nephropathy Category: Medical Qualifiers: Diabetes mellitus type: type 2 Qualified Code(s): E11.21 - Type 2 diabetes mellitus with diabetic nephropathy (3) Proteinuria: Code(s): R80.9 - Proteinuria, unspecified Category: Medical Qualifiers: Proteinuria type: other Qualified Code(s): R80.8 - Other proteinuria (4) Hypertension: Code(s): I10 - Essential (primary) hypertension Category: Medical Qualifiers: Hypertension type: primary hypertension Qualified Code(s): I10 - Essential (primary) hypertension Plan Alcides has stage 3 chronic kidney disease from diabetic nephropathy. His blood pressure needs to be maintained at goal. He is on angiotensin receptor winsome. I increased his losartan to 100 mg daily. He is tolerating Farxiga. He needs to lose weight. He avoids nonsteroidal anti-inflammatories. He maintains good hydration. I did not make any other medication changes today. Follow-up lab work ordered. Answered all questions. Follow-up given Orders: Orders Creatinine 2 Months E11.21 - Type 2 diabetes mellitus with diabetic nephropathy, I10 - Essential (primary) hypertension, N18.31 - Chronic kidney disease, stage 3a, R80.8 - Other proteinuria Blood Urea Nitrogen 2 Months E11.21 - Type 2 diabetes mellitus with diabetic nephropathy, I10 - Essential (primary) hypertension, N18.31 - Chronic kidney disease, stage 3a, R80.8 - Other proteinuria Electrolytes 2 Months E11.21 - Type 2 diabetes mellitus with diabetic nephropathy, I10 - Essential (primary) hypertension, N18.31 - Chronic kidney disease, stage 3a, R80.8 - Other proteinuria Protein Creatinine Ratio, Ur 2 Months E11.21 - Type 2 diabetes mellitus with diabetic nephropathy, I10 - Essential (primary) hypertension, N18.31 - Chronic kidney disease, stage 3a, R80.8 - Other proteinuria Medications: Changed From losartan 75 mg (1.5 x 50 mg) PO DAILY 135 tabs 3RF To losartan 100 mg PO DAILY 90 tabs 3RF 90 days Coding Level of Care Code Est Pt Level 4 (39236) Diagnoses Chronic kidney disease, stage 3a N18.31 Diabetic nephropathy associated with type 2 diabetes mellitus E11. Diabetes mellitus type: type 2 Other proteinuria R80.8 Proteinuria type: other Primary hypertension I10 Hypertension type: primary hypertension
[2024-09-07 14:13] VITALS: BP 160/80; PULSE 74; O2SAT 95; BMI 42.0
--- OUTSIDE RECORDS SUMMARY | 2024-09-07 14:43 | XMS_ITS | Clinical Summary ---
Author Organization [facility] Address [address] [place] [address] Phone Care Team Providers Care Agency Cashier Name Role Phone Yunier Nunes Primary Care Provider [phone] Allergies Active Allergy Reactions Criticality Noted Date [...] obesity with BMI of 4 5.0-49.9, adult ([facility] V24, [facility] V28) 03/08/2024 Diastolic heart failure ([facility] V24, [facility] V2 8) 05/17/2020 Overview (03/08/2024): Last Assessment [...] Controlled NSTEMI (non-ST elevated myoc ardial infarction) ([facility] V24, [facility] V28) 05/13/2016 Overview (03/08/2024): 04/2016--s/p PCI with [...] mellitus with renal manifestations, uncontrolled(250.42) (CMS/HCC V24, CMS/[facility] V28) 05/07/2005 Overview (03/08/2024): Last Assessment & Plan: Lantus Titration Protocol-Fasting blood sugar 160-180. Lantus insulin increased to 37 units. Pt will increase dose according to protocol. See note 09/17/11 Encounters Date Type Department Care Team Description 06/11/2024 Telephone [facility] - [address] [place] [address] Mikie Vazquez MD No Show [...] Site/Laterality Comments COLONOSCOPY W/ POLYPECTOMY 2005 PROCEDURE: MT COLSC FLX W/RMVL OF TUMOR POLYP LESION SNARE TQ; COMMENT: Zeroogian; large inflammatory polyp. HERNIA REPAIR PROCEDURE: HISTORICAL HERNIA REPAIR/UMB CORONARY STENT PLACEMENT 04/27/16 [facility] PROCEDURE: STENT, CORONARY, ELOY; COMMENT: stent OM [...] obesity with BMI of 4 5.0-49.9, adult ([facility] V24, [facility] V28) 06/24/2016 DX:Morbid obesity wit h BMI of 45.0-49.9, adult ([facility]) Family History Medical History Relation [...] Description 11/17/2024 9:20 AM EDT Office Visit [facility] [address] [id number] Mikie Vazquez MD [address] [address] Health Maintenance Due Date Last Done Comments [...] Maintenance Results * COLONOSCOPY Anesthesia - MAC; [facility] ENDOSCOPY (03/11/2024 9:11 AM EST) Anatomical [...] for surveillance. Narrative 03/11/2024 9:15 AM EST [facility] Patient Name: Alcides Patel Procedure Date: 03/11/2024 8:44 AM Date of : 1955 Age: 68 Room: ROOM 16 Gender: Male Note Status: Finalized Attending MD: Anton Palencia MD, Procedure Date No Time: 03/11/2024 Procedure: Colonoscopy Indications: High risk colon cancer surveillance: Personal history of colonic polyps Providers: Anton Palencia MD [...] retroflexion views. Procedure Code(s): --- Professional --- 77383, Colonoscopy, flexible; with removal of tumor(s), polyp(s), or other lesion(s) by snare technique Diagnosis Code(s): --- Professional --- Z86.010, Personal history of colonic polyps D12.3, Benign neoplasm of transverse colon (hepatic flexure or splenic flexure) CPT copyright 2020 [employer]. All rights reserved. The codes documented in this report are preliminary and upon fiber glass worker review may be revised to meet current compliance requirements. Anton Palencia MD 03/11/2024 9:15:12 AM This report has been signed electronically.Anton Palencia MD Number of Addenda: 0 Note Initiated On: 03/11/2024 8:44 AM Scope In: Scope Out: Endoscopy Department at [facility] - [address] [place] [phone] Procedure Note Anton Palencia MD - 03/11/2024 [facility] Patient Name: Alcides Patel [...] retroflexion views. Procedure Code(s): --- Professional --- 75570, Colonoscopy, flexible; with removal of tumor(s), polyp(s), or other lesion(s) by snare technique Diagnosis Code(s): --- Professional --- Z86.010, Personal history of colonic polyps D12.3, Benign neoplasm of transverse colon (hepatic flexure or splenic flexure) CPT copyright 2020 [employer]. All rights reserved. The codes documented in this report are preliminary and upon fiber glass worker reviewmay be revised to meet current compliance requirements. Anton Palencia MD 03/11/2024 9:15:12 AM This report has been signed electronically.Anton Palencia MD Number of Addenda: 0 Note Initiated On: 03/11/2024 8:44 AM Scope In: Scope Out: Endoscopy Department at [facility] - [address] [place] [phone] IMPRESSION: - One 5 mm polyp in [...] LAB CHEMISTRY METHOD 01/07/2024 6:01 PM EST [facility] eGFR 49(L) >=60 mL/min/1. 73m2 LAB CHEMISTRY METHOD 01/07/2024 6:01 PM EST [facility] Comment:Calculation based on the Chronic Kidney Disease Epidemiology Collaboration (CKD-EPI) equation refit without adjustment for race. Blood Venous blood specimen / Unknown Venipuncture / Unknown 01/07/2024 12:07 PM EST 01/07/2024 12:53 PM EST Gary Schmidt MD LAB BLOOD ORDERABLES Final Resul t [facility] ([facility]) [facility] [address] [place] [address], [place] [phone] * Urine Albumin Creatinine Ratio (06/10/2017) Pathologist [facility] Urine Albumin Creatinine Ratio abstracted Result [facility] Historical Provider HEALTH MAINTENANCE Final Result * (ABNORMAL) Hemoglobin A1c (03/10/2017) [facility] Hemoglobin A1C 10.1(A) 4.0 - 6.0 % Blood Venous blood specimen / Unknown Result [facility] Historical Provider LAB BLOOD ORDERABLES Tanesha l Result * (ABNORMAL) Lipid panel (03/10/2017) [facility] LDL/HDL Ratio 4 0 - 4 Triglycerides 120 0 - 150 mg/dL Cholesterol 134 0 - 200 mg/dL HDL 38(A) >=40 mg/dL LDL Cholesterol 72 0 - 100 mg/dL Blood Venous blood specimen / Unknown Result [facility] Historical Provider LAB BLOOD ORDERABLES Tanesha l Result * Hepatitis C Screening (09/04/2009) Pathologist [facility] Hepatitis C Screening abstracted Result [facility] Historical Provider HEALTH MAINTENANCE Final Result from Last 3 Months or Most Recently Relevant to Health Maintenance Insurance MEDICARE [facility] Care Teams Agency Cashier Relationship Specialty Start Date End Date Yunier Nunes PA [address] [place] [address] PCP - General Physician Grounds/Maintenance Specialist 12/25/23
--- OUTSIDE RECORDS SUMMARY | 2024-09-07 14:43 | XMS_ITS | Clinical Summary ---
Author Organization [facility] Address [address] [place] [phone] Phone Care Team Providers Care Basting Machine Operator Name Role Phone Jevon Adler MD Primary Care Provider [phone] Allergies Active Allergy Reactions Criticality Noted Date [...] 1.60(A) 0.60 - 1.30 mg/dL eGFR Non-Afr Macedonian 46 ALT (SGPT) 19 U/L AST (SGOT) 21 U/L Hemoglobin A1C 6.3(A) 4.0 - 6.0 11/26/2021 Historical Provider LAB BLOOD ORDERABLES Tanesha l Result from Last 3 Months or Most Recently Relevant to Health Maintenance Insurance [place] Care Teams Basting Machine Operator Relationship Specialty Start Date End Date Jevon Adler MD [address] PCP - General Internal Medicine 03/28/21
--- OUTSIDE RECORDS SUMMARY | 2024-09-07 14:43 | XMS_ITS | Clinical Summary ---
Author Organization [facility] Address [address] [place] [address] Care Team Providers Care Stain Remover Name Role Phone Americo Salter MD Primary Care Provider [phone] Allergies No known active allergies Social History [...] patient's age to complete this topic [place] [employer] [place] [employer] [place] Care Teams Stain Remover Relationship Specialty Start Date End Date Americo Salter MD [address] [place] [phone] PCP - General 04/26/16
== END 2024-09-07 14:30 | disposition home or self-care (01) ==
LOC: HO.HKAS 14:00
PROVIDERS: Visit Provider Internal Medicine Nephrology
DX: N18.31 Chronic kidney disease, stage 3a (principal); E11.21 Type 2 diabetes mellitus with diabetic nephropathy; R80.8 Other proteinuria; I10 Essential (primary) hypertension
CPT/HCPCS: 99214

== ENCOUNTER 2024-11-04 15:01 | Outpatient (REF) | payer BC, SELFPAY ==
[2024-11-04 18:39] LABS: Anion Gap 11 (12-20); Blood Urea Nitrogen 25 mg/dL (9-16); Carbon Dioxide 28 mmol/L (22-29); Chloride 108 mmol/L (96-108); Estimated Glomerular Filt Rate 51; Potassium 4.3 mmol/L (3.3-5.1); Sodium 143 mmol/L (135-145)
[2024-11-04 18:54] LABS: Protein/Creatinine Ratio, Ur 0.64 (<0.2); Total Protein Urine Random 28 mg/dL (<12)
--- OUTSIDE RECORDS SUMMARY | 2024-11-04 19:22 | XMS_ITS | Clinical Summary ---
Author Organization [facility] Address [address] [place] [address] Care Team Providers Care Manager Trading Name Role Phone Yunier Nunes Primary Care Provider [phone] Source Comments PLEASE NOTE, if this patient [...] Take 40 mg by mouth once daily 024 Active losartan (COZAAR) 50 mg tablet Take 75 mg by mouth once daily Active metoprolol tartrate (LOPRESSOR) 100 mg tablet TAKE 1 TABLET BY MOUTH 2 TIMES A DAY FOR 30 DAYS Active tobramycin-dexame thasone (TOBRADEX) 0.3-0.1 % ophthalmic susp INSTILL 1 DROP INTO BOTH EYES 3 TIMES A DAY Active INSULIN LISPRO SUBQ Inject into the skin Active furosemide (LASIX) 40 mg tablet Take 40 mg by mouth 2 (two) times daily Active aspirin [address] tablet Take 81 mg by mouth once daily Active BD ULTRA-FINE MICRO PEN NEEDLE 32 gauge x 1/4 ndle USE DIRECTED FOR USE WITH INSULIN PEN 3 TIMES DAILYStrength: 32 gauge x 1/4 100 Each 11 024 Active NOVOLOG FLEXPEN U-100 INSULIN 100 unit/mL (3 mL) Inject 2-20 units TID according to sliding scale. 15 mL 11 024 Active TRULICITY 1.5 mg/0.5 mL pen injectorIndicatio ns:Type 2 diabetes mellitus without complication, with long-term current use of insulin ([facility]) Inject 1.5 mg into the skin once a week 5 mL 4 024 Active coffee xt-phosphatidyl serine (NOOTROPIC COFFEE-PS) 100-100 mg capIndications:Me boom changes Take one tablet daily for mental accuity 90 Capsule 1 024 Active tirzepatide (MOUNJARO) 2.5 mg/0.5 mL pnijIndications:B livier mass index (BMI) 45.0-49.9, adult ([facility]),Moderate binge-eating disorder,Morbid obesity with body mass index of 45.0-49.9 in adult ([facility]),Type 2 diabetes mellitus with stage 3b chronic kidney disease, with long-term current use of insulin ([facility]) INJECT 2.5 MG SUBCUTANEOUSLY WEEKLY 2 mL 2 025 Active tadalafiL (CIALIS) 20 mg tablet TAKE 1 TABLET BY MOUTH EVERY DAY NEEDED 10 Tablet 1 025 Active testosterone (ANDROGEL) 20.25 mg/1.25 gram (1.62 %) gel pump 4 PUMP(S) APPLIED TOPICALLY ONCE A DAY (IN THE MORNING) 75 g 4 025 Active tirzepatide (MOUNJARO) 5 mg/0.5 mL pnijIndications:B livier mass index (BMI) 45.0-49.9, adult ([facility]),Type 2 diabetes mellitus with stage 3b chronic kidney disease, with long-term current use of insulin ([facility]),Moderate binge-eating disorder INJECT 5 MG SUBCUTANEOUSLY WEEKLY 5 mL 2 025 Active amLODIPine (NORVASC) 10 mg tablet Take 1 Tablet by mouth once daily. 90 Tablet 1 025 Active clopidogreL (PLAVIX) 75 mg tablet Take 1 Tablet by mouth once daily. 90 Tablet 1 025 Active sildenafiL (VIAGRA) 50 mg tabletIndications :Erectile dysfunction, unspecified erectile dysfunction type Take 1 Tablet by mouth once daily as needed for erectile dysfunction. 30 Tablet 1 025 Active tirzepatide (MOUNJARO) 12.5 mg/0.5 mL pnijIndications:D iabetes mellitus type 2 ([facility]),Body mass index (BMI) 45.0-49.9, adult ([facility]),Moderate binge-eating disorder,Morbid obesity with body mass index of 45.0-49.9 in adult ([facility]),Hyperlip idemia, unspecified hyperlipidemia type,Essential hypertension,Othe r sleep apnea Inject 12.5 mg into the skin once a week for 30 days. 2 mL 025 2024 Active tirzepatide (MOUNJARO) 15 mg/0.5 mL pnijIndications:D iabetes mellitus type 2 ([facility]),Body mass index (BMI) 45.0-49.9, adult ([facility]),Moderate binge-eating disorder,Morbid obesity with body mass index of 45.0-49.9 in adult ([facility]),Hyperlip idemia, unspecified hyperlipidemia type,Essential hypertension,Othe r sleep apnea Inject 15 mg into the skin once a week for 30 days. 2 mL 1 025 2024 Active DEXCOM G6 SENSOR amer[place] USE DIRECTED FOR GLUCOSE MONITORING 3 Each 025 Active DEXCOM G6 TRANSMITTER amer[place] USE TO TEST BLOOD SUGAR DIRECTED.USE TO TEST BLOOD SUGAR DIRECTED. 1 Each 025 Active tirzepatide (MOUNJARO) 7.5 mg/0.5 mL pnijIndications:D iabetes mellitus type 2 ([facility]),Body mass index (BMI) 45.0-49.9, adult ([facility]),Moderate binge-eating disorder,Morbid obesity with body mass index of 45.0-49.9 in adult ([facility]),Hyperlip idemia, unspecified hyperlipidemia type,Essential hypertension,Othe r sleep apnea INJECT 7.5 MG INTO THE SKIN ONCE A WEEK FOR 30 DAYS. 2 mL 025 2024 Active DEXCOM G6 SENSOR america USE DIRECTED FOR GLUCOSE MONITORING 2 Each 024 2024 Discontinued WinWeb G6 TRANSMITTER amer[place] Use to test blood sugar as directed.Use to test blood sugar as directed. 2 Each 11 024 2024 Discontinued tirzepatide (MOUNJARO) 7.5 mg/0.5 mL pnijIndications:D iabetes mellitus type 2 ([facility]),Body mass index (BMI) 45.0-49.9, adult ([facility]),Moderate binge-eating disorder,Morbid obesity with body mass index of 45.0-49.9 in adult ([facility]),Hyperlip idemia, unspecified hyperlipidemia type,Essential hypertension,Othe r sleep apnea Inject 7.5 mg into the skin once a week for 30 days. 2 mL 1 025 2024 Discontinued Active Problems Problem Noted Date Diagnosed Date Severe obesity ([facility]) 04/28/2024 Morbid obesity with body mas s index of 45.0-49.9 in adult ([facility]) 09/22/2023 Chronic kidney disease, stage 3a ([facility]) 05/29/2021 Generalized edema 05/29/2021 Microalbuminuria 05/29/2021 Nephrolithiasis 05/29/2021 Binge eating disorder 05/07/2021 Body mass index (BMI) 45.0-49.9, adult ([facility]) 05/07/2021 Coronary arteriosclerosis 05/07/2021 Diabetes mellitus type 2 ([facility]) 022 Diastolic heart failure ([facility]) 05/18/19 21 Overview (04/28/2024): Last Assessment [...] Controlled NSTEMI (non-ST elevated myoc ardial infarction) (CMS & HHS-HCC) 05/13/2016 Overview (04/28/2024): 04/2016--s/p PCI with KAYKAY [...] Encounters Date Type Department Care Team Description 09/06/2024 4:20 PM EDT Office Visit [facility] [id number] [place] [address] Yunier Nunes PA 09/01/2024 10:00 AM EDT Office Visit [facility] [phone] [place] [address] Darvin Huertas RN from Last 3 Months Immunizations Immunization Administration [...] Mass Index 41.81 09/06/2024 3:48 PM EDT Plan of Treatment Health Maintenance Due Date Last Done Comments Dental Examination [address] CT Colonography 06/29/1999 Flexible Sigmoidoscopy 06/29/1999 Imm-Pneumococcal 50+ (2 of 2 - PCV) 05/30/2004 05/31/2003 Urine Albumin Creatinine Rat io Screening 10/10/2022 10/10/2021, 05/07/2021 Depression Monitoring 12/23/2023 09/22/2023 Alcohol and Drug Screen 02/11/2024 09/22/2023 Diabetes Foot Exam 09/21/2024 09/22/2023 Falls Prevention 09/21/2024 09/22/2023 Lipid Screening 09/21/2024 09/22/2023, 03/10/2017 [id number] ( season) 2024 12/10/2023, 01/27/2023, 11/20/2021, Additional history exists Imm-Influenza (#1) 2024 12/10/2023, 1 , 11/23/2020, Additional history exists Retinopathy Screening 10/14/2024 10/15/2023 FIT/gFOBT 10/20/2024 10/21/2023 Hemoglobin A1c 10/29/2024 04/28/2024, 12/0 06/2023, 09/22/2023, Additional history exists Tobacco Screening 01/14/2025 01/15/2024, 09/22/2023 Annual Wellness (Adult): Ind icated (All Coverage) 04/28/2025 04/28/2024, 09/22/2023 Serum Creatinine 09/06/2025 09/06/2024, , 09/22/2023, Additional history exists Fecal DNA 10/20/2026 10/21/2023 Imm-DTaP/Tdap/Td (2 - Td or Tdap) 03/10/2027 018, 05/31/2003 Colonoscopy 03/11/2034 03/11/2024 Colorectal Cancer Screening 03/11/2034 Imm-Zoster, Recombinant Completed 07/30/2021, 04/13 Hepatitis C Screening Completed 09/22/2023 Procedures Procedure Name Priority Date/Time Associated Diagnosis Comments IMAGING SCANNED DOCUMENT 11/01/2024 3:00 AM EDT REFERRAL SCANNED DOCUMENT 09/07/2024 3:00 AM EDT COMPREHENSIVE METABOLIC PANEL Routine 09/06/2024 4:12 PM EDT Diabetes mellitus type 2 (CMS & HHS-HCC) Hypogonadism in male TESTOSTERONE, FREE AND TOTAL Routine 09/06/2024 4:12 PM EDT Diabetes mellitus type 2 (CMS & HHS-HCC) Hypogonadism in male HGBA1C W/MPG Routine 04/28/2024 3:33 PM EDT Type 2 diabetes mellitus with stage 3b chronic kidney disease, with long-term current use of insulin ([facility]) HISTORIC COLONOSCOPY 03/11/2024 3:00 AM EST COLOGUARD Routine 10/21/2023 3:00 AM EDT Encounter for colorectal cancer screening using Cologuard test EYE EXAM 10/15/2023 3:00 AM EDT HEPATITIS C AB W/RFLX HCV RNA, QT, RT PCR Routine 09/22/2023 11:35 AM EDT Body mass index (BMI) 45.0-49.9, adult (HCC-CMS) Morbid obesity with body mass index of 45.0-49.9 in adult (HCC-CMS) Binge eating disorder Chronic kidney disease, stage 3a (HCC-CMS) Coronary arteriosclerosis Generalized edema History of non-ST elevation myocardial infarction (NSTEMI) Hypercholesterolemi a Hypertension, unspecified type Microalbuminuria Nephrolithiasis Obstructive sleep apnea syndrome Type 2 diabetes mellitus with other circulatory complication, without long-term current use of insulin ([facility]) Routine adult health maintenance Encounter for colorectal cancer screening using Cologuard test LIPID PANEL Routine 09/22/2023 11:35 AM EDT Body mass index (BMI) 45.0-49.9, adult ([facility]) Morbid obesity with body mass index of 45.0-49.9 in adult ([facility]) Binge eating disorder Chronic kidney disease, stage 3a ([facility]) Coronary arteriosclerosis Generalized edema History of non-ST elevation myocardial infarction (NSTEMI) Hypercholesterolemi a Hypertension, unspecified type Microalbuminuria Nephrolithiasis Obstructive sleep apnea syndrome Type 2 diabetes mellitus with other circulatory complication, without long-term current use of insulin ([facility]) Routine adult health maintenance Encounter for colorectal cancer screening using Cologuard test from Last 3 Months or Most Recently Relevant to Health Maintenance Results * IMAGING SCANNED DOCUMENT (11/01/2024 3:00 AM EDT) 11/01/2024 3:00 AM EDT Yunier NEWELL SCAN IMAGING Final Result * REFERRAL SCANNED DOCUMENT (09/07/2024 3:00 AM EDT) 09/07/2024 3:00 AM EDT Yunier NEWELL SCAN REFERRAL Final Result * TESTOSTERONE, FREE AND TOTAL Routine (09/06/2024 4:12 PM EDT) TESTOSTERONE, TOTAL, LC/MS/MS 265 250 - 1,100 ng/dL 09/11/2024 4:05 PM EDT [facility] FREE TESTOSTERONE 36.0 30.0 - 135.0 pg/mL 09/11/2024 4:05 PM EDT [facility] [place] Blood Blood / Unknown 09/06/2024 4 :12 PM EDT 09/08/2024 1:00 PM EDT Narrative [facility] [place] - 09/11/2024 4:05 PM EDT . Men with clinically significant hypogonadal symptoms and testosterone values repeatedly in the range of the 200-300 ng/dL or less, may benefit from testosterone treatment after adequate risk and benefits counseling. . . For additional information, please refer to http://education.inDinero/faq/ LkbjrJtxzxlbnwcioZGTOICBYK534 (This link is being provided for informational/ educational purposes only.) . This test was developed and its analytical performance characteristics have been determined by [employer] [place], [place]. It has not been cleared or approved by the U.S. Food and Drug Administration. This assay has been validated pursuant to the CLIA regulations and is used for clinical purposes. . . This test was developed and its analytical performance characteristics have been determined by [employer] [place]. It has not been cleared or approved by the U.S. Food and Drug Administration. This assay has been validated pursuant to the CLIA regulations and is used for clinical purposes. . Y[facility]ier [facility] - BLOOD DRAW Final Result [facility] [place] [address] [place], [place] , [facility] [place] [address] [place], [place] * (ABNORMAL) COMPREHENSIVE METABOLIC PANEL Routine (09/06/2024 4:12 PM EDT) [facility] GLUCOSE 75 65 - 99 mg/dL 09/07/2024 6:27 AM EDT [facility] UREA NITROGEN (BUN) 31(H) 7 - 25 mg/dL 09/07/2024 6:27 AM EDT [facility] CREATININE (blood) 1.49(H) 0.70 - 1.28 mg/dL 09/07/2024 6:27 AM EDT [facility] EGFR 50(L) > OR = 60 mL/min/1. 73m2 09/07/2024 6:27 AM EDT [facility] BUN/CREATININE RATIO 21 6 - 22 (calc) 09/07/2024 6:27 AM EDContestomatik [facility] SODIUM 137 135 - 146 mmol/L 09/07/2024 6:27 AM [employer]Contestomatik [facility] POTASSIUM 4.1 3.5 - 5.3 mmol/L 09/07/2024 6:27 AM [employer]Contestomatik [facility] CHLORIDE 102 98 - 110 mmol/L 09/07/2024 6:27 AM EDContestomatik [facility] CARBON DIOXIDE 26 20 - 32 mmol/L 09/07/2024 6:27 AM [facility] CALCIUM 9.7 8.6 - 10.3 mg/dL 09/07/2024 6:27 AM [facility] PROTEIN, TOTAL 7.2 6.1 - 8.1 g/dL 09/07/2024 6:27 AM [facility] ALBUMIN 4.3 3.6 - 5.1 g/dL 09/07/2024 6:27 AM [facility] GLOBULIN 2.9 1.9 - 3.7 g/dL (calc) 09/07/2024 6:27 AM [facility] ALBUMIN/GLOBULI N RATIO 1.5 1.0 - 2.5 (calc) 09/07/2024 6:27 AM [facility] BILIRUBIN, TOTAL 0.9 0.2 - 1.2 mg/dL 09/07/2024 6:27 AM [facility] ALKALINE PHOSPHATASE 93 35 - 144 U/L 09/07/2024 6:27 AM [facility] AST 21 10 - 35 U/L 09/07/2024 6:27 AM [facility] ALT 22 9 - 46 U/L 09/07/2024 6:27 AM [facility] Blood Blood / Unknown 09/06/2024 4 :12 PM EDT 09/07/2024 4:44 AM EDT [employer] [facility] - 09/07/2024 6:48 AM EDT . Fasting reference interval . [facility] - BLOOD DRAW Final Result [facility] [address] [address], [facility] [address] [address] * (ABNORMAL) HGBA1C W/MPG (04/28/2024 3:33 PM EDT) HEMOGLOBIN A1C 7.3(H) <5.7 % of total Hgb [facility] Comment: For someone without known diabetes, a [...] children. MEAN PLASMA GLUCOSE 183 mg/dL (calc) [employer] Blood Blood / Unknown 04/28/2024 3 :33 PM EDT 04/28/2024 3:34 PM EDT Narrative [facility] - 04/29/2024 3:13 AM EDT FASTING:NO us [facility] - BLOOD DRAW Final Result Performing Organization Address [facility] Co de Phone Number [facility] [address] [address], [facility] [address] [address] * HISTORIC COLONOSCOPY (03/11/2024 3:00 AM EST) 03/11/2024 3:00 AM EST us Yunier NEWELL PROCEDURES Final Result * COLOGUARD (10/21/2023 3:00 AM EDT) Stool Stool specimen / Unknown 10/21/2023 3:00 AM EDT us [facility] BODY FLUIDS AND STOOLS AMB ULATORY Edited Result - Final [facility] [address], [address] [facility] [id number] [place] [address], * EYE EXAM (10/15/2023 3:00 AM EDT) 10/15/2023 3:00 AM EDT us Yunier NEWELL OTHER Edited Result - Final * HEPATITIS C AB W/RFLX HCV RNA, QT, RT PCR (09/22/2023 11:35 AM EDT) HEPATITIS C ANTIBODY NON-REACT JULIEN NON-REACT JULIEN [facility] Comment: HCV antibody was non-reactive. There is no laboratory evidence of HCV infection. In most cases, no further action is required. However, if recent HCV exposure is suspected, a test for HCV RNA (test code 10396) is suggested. For additional information please refer to http://education.inDinero/faq/FCV99z8 (This link is being provided for informational/ educational purposes only.) Blood Blood / Unknown 09/22/2023 1 1:35 AM EDT 09/22/2023 11:35 AM EDT us [facility] - BLOOD DRAW Final Result Performing Organization Address City/[facility]/ZIP Co de Phone Number [facility] [address] [address], [facility] [address] [address] * (ABNORMAL) LIPID PANEL (09/22/2023 11:35 AM EDT) CHOLESTEROL, TOTAL 131 <200 mg/dL [facility] HDL CHOLESTEROL 39(L) > OR = 40 mg/dL [facility] TRIGLYCERIDES 75 <150 mg/dL [facility] LDL-CHOLESTEROL 76 99 mg/dL (calc) [facility] Comment: Reference range: <100 Desirable range <100 mg/dL for primary prevention; <70 mg/dL for patients with CHD or diabetic patients with > or = 2 CHD risk factors. LDL-C is now calculated using the Brianna calculation, which is a validated novel method providing better accuracy than the Friedewald equation in the estimation of LDL-C. Art VANG et al. RAUL. 2013;310(19): 1307-8262 (http://education.Stockpulse/faq/RHA887) CHOL/HDLC RATIO 3.4 <5.0 (calc) [facility] NON-HDL CHOLESTEROL 92 <130 mg/dL (calc) [facility] Comment: For patients with diabetes plus 1 major ASCVD risk factor, treating to a non-HDL-C goal of <100 mg/dL (LDL-C of <70 mg/dL) is considered a therapeutic option. Blood Blood / Unknown 09/22/2023 1 1:35 AM EDT 09/22/2023 11:35 AM EDT [facility] - BLOOD DRAW Final Result [facility] [address] [place] [id number], [facility] [address] [place] [phone] from Last 3 Months or Most Recently Relevant to Health Maintenance Insurance [facility] Care Teams Manager Trading Relationship Specialty Start Date End Date Yunier Nunes PA [address] [place] [address] PCP - General FAMILY MEDICINE, [place] 09/19/23
--- OUTSIDE RECORDS SUMMARY | 2024-11-04 19:22 | XMS_ITS | Clinical Summary ---
Author Organization [facility] Address [address] [place] [address] Care Team Providers Care Teaching Music Lessons Name Role Phone Americo Salter MD Primary Care Provider [phone] Allergies No known active allergies Social History [...] Health Maintenance Due Date Last Done Comments Advance Care Planning 1955 Hepatitis C Virus Screening 1955 DTaP/Tdap/Td Vaccines (1 - Tdap) 1973 Colonoscopy 06/29/1999 Pneumococcal Vaccines 50+ (1 of 1 - PCV) 2004 Zoster (Shingles) Vaccine (1 of 2) 2004 RSV Vaccine 60 years and old er and Patients (1 - Risk 60-74 years 1-dose series) 2014 Influenza Vaccine 09/10/2024 COVID-19 Vaccine (2023-2 5 season) 2024 Hepatitis B Vaccines Aged Out No long er eligible based on patient's age to complete this topic Insurance [place] [place] [place] Care Teams Teaching Music Lessons Relationship Specialty Start Date End Date Americo Salter MD [address] [place] [id number] PCP - General 04/26/16
--- OUTSIDE RECORDS SUMMARY | 2024-11-04 19:22 | XMS_ITS | Clinical Summary ---
Author Organization [facility] Address [address] [place] [phone] Phone Care Team Providers Care Bridge Crew Member Name Role Phone Jevon Adler MD Primary Care Provider [phone] Allergies Active Allergy Reactions Criticality Noted Date [...] 1.60(A) 0.60 - 1.30 mg/dL eGFR Non-Afr Cuban 46 ALT (SGPT) 19 U/L AST (SGOT) 21 U/L Hemoglobin A1C 6.3(A) 4.0 - 6.0 11/26/2021 Historical Provider LAB BLOOD ORDERABLES Tanesha l Result from Last 3 Months or Most Recently Relevant to Health Maintenance Insurance [facility] Care Teams Bridge Crew Member Relationship Specialty Start Date End Date Jevon Adler MD [address] PCP - General Internal Medicine 03/28/21
== END 2024-11-04 15:02 | disposition home or self-care (01) ==
LOC: HO.HKASLDS 15:01
PROVIDERS: Visit Provider Internal Medicine Nephrology
DX: I12.9 Hypertensive chronic kidney disease with stage 1 through stage 4 chronic kidney disease, or unspecified chronic kidney disease (principal); E11.22 Type 2 diabetes mellitus with diabetic chronic kidney disease; N18.31 Chronic kidney disease, stage 3a; E11.21 Type 2 diabetes mellitus with diabetic nephropathy; R80.8 Other proteinuria
CPT/HCPCS: 36415; 80051; 82565; 82570; 84156; 84520

== ENCOUNTER 2024-11-09 13:29 | Outpatient (AMB) | payer BC, SELFPAY ==
--- NOTE | 2024-11-09 13:34 | HO.NEPHOV ---
Vital Signs 11/09/24 13:36 Height 5 ft 8 in Weight 273 lb BMI 41.5 BP 110/70 Blood Pressure Location Lt brachial Position Sitting Pulse 71 Pulse Source Pulse Oximeter Pulse Oximetry (%) 96 Oxygen Delivery Method Room Air Intake Visit Reasons: 2mnth w labs-Conf Director Of Conservation Required: No Accompanied by: Self / Same As Patient Allergies irbesartan Allergy (Verified 11/09/24 13:35) Unknown lactose Allergy (Verified 11/09/24 13:35) Unknown latex Allergy (Verified 11/09/24 13:35) Unknown lisinopril Allergy (Verified 11/09/24 13:35) Unknown naproxen Allergy (Verified 11/09/24 13:35) Unknown HPI Comments Details: Alcides was seen in follow-up of his chronic kidney disease on a backdrop of diabetes mellitus, hypertension and proteinuria. He is employed and is active. He has a very strong family history of end-stage renal disease and expressed his fears of needing dialysis. He refrains from nonsteroidal anti-inflammatory use. He does not have any chest pain, shortness of breath, proximal nocturnal dyspnea, orthopnea, pedal edema, orthostatic symptoms, hematuria, dysuria. His blood sugar control is better but not optimal. He has H/O of gout and was treated with colchicine. He claims to be compliant with his medications. He maintains good hydration. He denied any active systemic symptoms. [facility] Medical History (Updated 03/13/23 @ 22:12 by Gary Schmidt MD) Hypertension Proteinuria T2DM (type 2 diabetes mellitus) Chronic kidney disease, stage 3a Surgical History History of gastric bypass Family History Brother Diabetes Kidney disease Mother Diabetes Social History Alcohol intake: never Patient Tobacco Use Status: Never used Tobacco Review of Systems Const All systems reviewed & are unremarkable except as noted in HPI and below Physical Exam Const General: comfortable and no acute distress Orientation/consciousness: patient oriented x3 HEENT Head: Yes normocephalic Mouth: Normal oral and palatal mucosa present Eyes EOM: EOMs intact bilaterally Neck Neck: Yes supple Resp Auscultation: clear to auscultation bilaterally Cardio Jugular venous distension: no JVD Rate: regular rate GI Palpation (GI): Soft to palpation Auscultation: normal bowel sounds General: Yes no CVA tenderness Back/Spine/Pelvis Back: no CVA tenderness Skin General skin exam: no rashes or lesions noted Neuro General: patient oriented x3 and moves all extremities Extrem General: Yes no pedal edema Results Reviewed Nephrology Results: Sodium, (135-145) 143 mmol/L 11/04/24 Potassium, (3.3-5.1) 4.3 mmol/L 11/04/24 Chloride, (96-108) 108 mmol/L 11/04/24 Carbon Dioxide, (22-29) 28 mmol/L 11/04/24 BUN, (9-16) 25 mg/dL H 11/04/24 Creatinine, (0.5-1.4) 1.39 mg/dL 11/04/24 Urine Creatinine 43.98 mg/dL 11/04/24 Protein/Creatinin Ratio, (<0.2) 0.64 H 11/04/24 Assessment & Plan Assessment & Plan (1) Hypertension: Code(s): I10 - Essential (primary) hypertension Category: Medical Qualifiers: Hypertension type: primary hypertension Qualified Code(s): I10 - Essential (primary) hypertension (2) Chronic kidney disease, stage 3a: Code(s): N18.31 - Chronic kidney disease, stage 3a Category: Medical (3) Diabetic nephropathy: Code(s): E11.21 - Type 2 diabetes mellitus with diabetic nephropathy Category: Medical Qualifiers: Diabetes mellitus type: type 2 Qualified Code(s): E11.21 - Type 2 diabetes mellitus with diabetic nephropathy Julisa Mcgrath has stage 3 chronic kidney disease from diabetic nephropathy. His blood pressure needs to be maintained at goal. He is on angiotensin receptor winsome. He should continue losartan 100 mg daily. He is tolerating Farxiga. He needs to lose weight. He avoids nonsteroidal anti-inflammatories. He maintains good hydration. I did not make any other medication changes today. Follow-up lab work ordered. Answered all questions. Follow-up given Orders: Orders Protein Creatinine Ratio, Ur 4 Months E11.21 - Type 2 diabetes mellitus with diabetic nephropathy, I10 - Essential (primary) hypertension, N18.31 - Chronic kidney disease, stage 3a Electrolytes 4 Months E11.21 - Type 2 diabetes mellitus with diabetic nephropathy, I10 - Essential (primary) hypertension, N18.31 - Chronic kidney disease, stage 3a Blood Urea Nitrogen 4 Months E11.21 - Type 2 diabetes mellitus with diabetic nephropathy, I10 - Essential (primary) hypertension, N18.31 - Chronic kidney disease, stage 3a Creatinine 4 Months E11.21 - Type 2 diabetes mellitus with diabetic nephropathy, I10 - Essential (primary) hypertension, N18.31 - Chronic kidney disease, stage 3a Coding Level of Care Code Est Pt Level 4 (53963) Diagnoses Primary hypertension I10 Hypertension type: primary hypertension Chronic kidney disease, stage 3a N18.31 Diabetic nephropathy associated with type 2 diabetes mellitus E11. Diabetes mellitus type: type 2
[2024-11-09 13:36] VITALS: BP 110/70; PULSE 71; O2SAT 96; BMI 41.5
--- OUTSIDE RECORDS SUMMARY | 2024-11-09 14:45 | XMS_ITS | Clinical Summary ---
Author Organization [facility] Address [address] [place] [address] Care Team Providers Care Auditor In Charge Name Role Phone Americo Salter MD Primary Care Provider [phone] Allergies No known active allergies Social History [...] patient's age to complete this topic Insurance [employer] [place] [employer] [place] [employer] Care Teams Auditor In Charge Relationship Specialty Start Date End Date Americo Salter MD [address] [place] [id number] PCP - General 04/26/16
--- OUTSIDE RECORDS SUMMARY | 2024-11-09 14:45 | XMS_ITS | Clinical Summary ---
Author Organization [facility] Address [address] [place] [phone] Phone Care Team Providers Care Professor Of Biblical Studies Name Role Phone Jevon Adler MD Primary Care Provider [phone] Allergies Active Allergy Reactions Criticality Noted Date [...] 1.60(A) 0.60 - 1.30 mg/dL eGFR Non-Afr [place] 46 ALT (SGPT) 19 U/L AST (SGOT) 21 U/L Hemoglobin A1C 6.3(A) 4.0 - 6.0 11/26/2021 Historical Provider LAB BLOOD ORDERABLES Tanesha l Result from Last 3 Months or Most Recently Relevant to Health Maintenance Insurance [place] Care Teams Professor Of Biblical Studies Relationship Specialty Start Date End Date Jevon Adler MD [address] PCP - General Internal Medicine 03/28/21
--- OUTSIDE RECORDS SUMMARY | 2024-11-09 14:45 | XMS_ITS | Clinical Summary ---
Author Organization [facility] Address [address] [place] [address] Care Team Providers Care Software Engineer Advisor Name Role Phone Yunier Nunes Primary Care Provider [phone] Source Comments PLEASE NOTE, if this patient [...] complication, with long-term current use of insulin Inject 1.5 mg into the skin once a week 5 mL 4 024 Active coffee xt-phosphatidyl serine (NOOTROPIC COFFEE-PS) 100-100 mg capIndications:Me boom changes Take one tablet daily for mental accuity 90 Capsule 1 024 Active tirzepatide (MOUNJARO) 2.5 mg/0.5 mL pnijIndications:B livier mass index (BMI) 45.0-49.9, adult,Moderate binge-eating disorder,Morbid obesity with body mass index of 45.0-49.9 in adult,Type 2 diabetes mellitus with stage 3b chronic kidney disease, with long-term current use of insulin INJECT 2.5 MG SUBCUTANEOUSLY WEEKLY 2 mL 2 025 Active tadalafiL (CIALIS) 20 mg tablet TAKE 1 TABLET BY MOUTH EVERY DAY NEEDED 10 Tablet 025 Active testosterone (ANDROGEL) 20.25 mg/1.25 gram (1.62 %) gel pump 4 PUMP(S) APPLIED TOPICALLY ONCE A DAY (IN THE MORNING) 75 g 4 025 Active tirzepatide (MOUNJARO) 5 mg/0.5 mL pnijIndications:B livier mass index (BMI) 45.0-49.9, adult,Type 2 diabetes mellitus with stage 3b chronic kidney disease, with long-term current use of insulin,Moderate binge-eating disorder INJECT 5 MG SUBCUTANEOUSLY WEEKLY 5 mL 2 025 Active amLODIPine (NORVASC) 10 mg tablet Take 1 Tablet by mouth once daily. 90 Tablet 1 025 Active clopidogreL (PLAVIX) 75 mg tablet Take 1 Tablet by mouth once daily. 90 Tablet 025 Active sildenafiL (VIAGRA) 50 mg tabletIndications :Erectile dysfunction, unspecified erectile dysfunction type Take 1 Tablet by mouth once daily as needed for erectile dysfunction. 30 Tablet 1 025 Active tirzepatide (MOUNJARO) 15 mg/0.5 mL pnijIndications:D iabetes mellitus type 2,Body mass index (BMI) 45.0-49.9, adult,Moderate binge-eating disorder,Morbid obesity with body mass index of 45.0-49.9 in adult,Hyperlipide jorge luis, unspecified hyperlipidemia type,Essential hypertension,Othe r sleep apnea Inject 15 mg into the skin once a week for 30 days. 2 mL 1 025 2024 Active DEXCOM G6 SENSOR [place] USE DIRECTED FOR GLUCOSE MONITORING 3 Each Active DEXCOM G6 TRANSMITTER [place] USE TO TEST BLOOD SUGAR DIRECTED.USE TO TEST BLOOD SUGAR DIRECTED. 1 Each Active tirzepatide (MOUNJARO) 7.5 mg/0.5 mL pnijIndications:D iabetes mellitus type 2,Body mass index (BMI) 45.0-49.9, adult,Moderate binge-eating disorder,Morbid obesity with body mass index of 45.0-49.9 in adult,Hyperlipide jorge luis, unspecified hyperlipidemia type,Essential hypertension,Othe r sleep apnea INJECT 7.5 MG INTO THE SKIN ONCE A WEEK FOR 30 DAYS. 2 mL 025 2024 Active DEXCOM G6 SENSOR [place] USE DIRECTED FOR GLUCOSE MONITORING 2 Each 024 2024 Discontinued DEXCOM G6 TRANSMITTER [place] Use to test blood sugar as directed.Use to test blood sugar as directed. 2 Each 024 2024 Discontinued tirzepatide (MOUNJARO) 7.5 mg/0.5 mL pnijIndications:D iabetes mellitus type 2,Body mass index (BMI) 45.0-49.9, adult,Moderate binge-eating disorder,Morbid obesity with body mass index of 45.0-49.9 in adult,Hyperlipide jorge luis, unspecified hyperlipidemia type,Essential hypertension,Othe r sleep apnea Inject 7.5 mg into the skin once a week for 30 days. 2 mL 1 025 2024 Discontinued tirzepatide (MOUNJARO) 12.5 mg/0.5 mL pnijIndications:D iabetes mellitus type 2,Body mass index (BMI) 45.0-49.9, adult,Moderate binge-eating disorder,Morbid obesity with body mass index of 45.0-49.9 in adult,Hyperlipide jorge luis, unspecified hyperlipidemia type,Essential hypertension,Othe r sleep apnea Inject 12.5 mg into the skin once a week for 30 days. 2 mL 025 2024 Active Problems Problem Noted Date Diagnosed Date Severe obesity 04/28/2024 Morbid obesity with body mass index of 45.0-49.9 in adult 09/22/2023 Chronic kidney disease, stage 3a 05/29/2021 Generalized edema 05/29/2021 Microalbuminuria 05/29/2021 Nephrolithiasis 05/29/2021 Binge eating disorder 05/07/2021 Body mass index (BMI) 45.0-49.9, adult Coronary arteriosclerosis 05/07/2021 Diabetes mellitus type 2 05/07/2021 Diastolic heart failure 05/17/2020 Overview (04/28/2024): Last Assessment & Plan: [...] (non-ST elevated myocardial infarction) 0 05/13/2016 Overview (04/28/2024): 04/2016--s/p PCI with KAYKAY [...] Description 09/06/2024 4:20 PM EDT Office Visit [facility] [address] [place] [address] Yunier Nunes PA 09/01/2024 10:00 AM EDT Office Visit [facility] [address] [place] [address] Darvin Huertas RN from Last 3 Months [...] 09/21/2024 09/22/2023 Lipid Screening 09/21/2024 09/22/2023, 03/10/2017 Anw-OKOEC-64 ( season) 2024 12/10/2023, 01/27/2023, 11/20/2021, Additional history exists Imm-Influenza (#1) 2024 12/10/2023, 1 , 11/23/2020, Additional history exists Retinopathy Screening 10/14/2024 10/15/2023 FIT/gFOBT 10/20/2024 10/21/2023 Hemoglobin A1c 10/29/2024 04/28/2024, 12/06/2023, 09/22/2023, Additional history exists Tobacco Screening 01/14/2025 [...] disease, with long-term current use of insulin ([facility]) HISTORIC COLONOSCOPY 03/11/2024 3:00 AM EST COLOGUARD Routine 10/21/2023 3:00 AM EDT Encounter for colorectal cancer screening using Cologuard test EYE EXAM 10/15/2023 3:00 AM EDT HEPATITIS C AB W/RFLX HCV RNA, QT, RT PCR Routine 09/22/2023 11:35 AM EDT Body mass index (BMI) 45.0-49.9, adult ([facility]) Morbid obesity with body mass index of 45.0-49.9 in adult ([facility]) Binge eating disorder Chronic kidney disease, stage 3a ([facility]) Coronary arteriosclerosis Generalized edema History of non-ST elevation myocardial infarction (NSTEMI) Hypercholesterolemi a Hypertension, unspecified type Microalbuminuria Nephrolithiasis Obstructive sleep apnea syndrome Type 2 diabetes mellitus with other circulatory complication, without long-term current use of insulin ([facility]) Routine adult health maintenance Encounter for colorectal cancer screening using Cologuard test LIPID PANEL Routine 09/22/2023 11:35 AM EDT Body mass index (BMI) 45.0-49.9, adult (HCC-CMS) Morbid obesity with body mass index of 45.0-49.9 in adult ([facility]) Binge eating disorder Chronic kidney disease, stage 3a ([facility]) Coronary arteriosclerosis Generalized edema History of non-ST elevation myocardial infarction (NSTEMI) Hypercholesterolemi a Hypertension, unspecified type Microalbuminuria Nephrolithiasis Obstructive sleep apnea syndrome Type 2 diabetes mellitus with other circulatory complication, without long-term current use of insulin ([facility]) Routine adult health maintenance Encounter for colorectal cancer screening using Cologuard test from Last 3 Months or Most Recently Relevant to Health Maintenance Results * IMAGING SCANNED DOCUMENT (11/01/2024 3:00 AM EDT) 11/01/2024 3:00 AM EDT us Yunier Manju PA SCAN IMAGING Final Result * REFERRAL SCANNED DOCUMENT (09/07/2024 3:00 AM EDT) 09/07/2024 3:00 AM EDT us Yunier Manju PA SCAN REFERRAL Final Result * TESTOSTERONE, FREE AND TOTAL Routine (09/06/2024 4:12 PM EDT) [facility] TESTOSTERONE, TOTAL, LC/MS/MS 265 250 - 1,100 ng/dL 09/11/2024 4:05 PM EDT [facility] [employer] NINI FREE TESTOSTERONE 36.0 30.0 - 135.0 pg/mL 09/11/2024 4:05 PM EDT [facility]/N CHIKA TERRAZAS Blood Blood / Unknown 09/06/2024 4 :12 PM EDT 09/08/2024 1:00 PM EDT Narrative adjust [facility] - 09/11/2024 4:05 PM EDT . Men with clinically significant hypogonadal symptoms and testosterone values repeatedly in the range of the 200-300 ng/dL or less, may benefit from testosterone treatment after adequate risk and benefits counseling. . . For additional information, please refer to http://education.[employer]/faq/ VfexwLjcfqfrplzcaOCLXOEQKV613 (This link is being provided for informational/ educational purposes only.) . This test was developed and its analytical performance characteristics have been determined by [employer] [place], [place]. It has not been cleared or approved by the U.S. Food and Drug Administration. This assay has been validated pursuant to the CLIA regulations and is used for clinical purposes. . . This test was developed and its analytical performance characteristics have been determined by [employer] [place], [place]. It has not been cleared or approved by the U.S. Food and Drug Administration. This assay has been validated pursuant to the CLIA regulations and is used for clinical purposes. . [facility] - BLOOD DRAW Final Result adjust [place] [address] [place], [place] , adjust/[facility] [address] [place], [place] * (ABNORMAL) COMPREHENSIVE METABOLIC PANEL Routine (09/06/2024 4:12 PM EDT) [facility] GLUCOSE 75 65 - 99 mg/dL 09/07/2024 6:27 AM [employer] [facility] UREA NITROGEN (BUN) 31(H) 7 - 25 mg/dL 09/07/2024 6:27 AM [employer] [facility] CREATININE (blood) 1.49(H) 0.70 - 1.28 mg/dL 09/07/2024 6:27 AM [employer] [facility] EGFR 50(L) > OR = 60 mL/min/1. 73m2 09/07/2024 6:27 AM [employer] [facility] BUN/CREATININE RATIO 21 6 - 22 (calc) 09/07/2024 6:27 AM [employer] [facility] SODIUM 137 135 - 146 mmol/L 09/07/2024 6:27 AM [employer] [facility] POTASSIUM 4.1 3.5 - 5.3 mmol/L 09/07/2024 6:27 AM [employer] [facility] CHLORIDE 102 98 - 110 mmol/L 09/07/2024 6:27 AM [employer] [facility] CARBON DIOXIDE 26 20 - 32 mmol/L 09/07/2024 6:27 AM [employer] [facility] CALCIUM 9.7 8.6 - 10.3 mg/dL 09/07/2024 6:27 AM [employer] [facility] PROTEIN, TOTAL 7.2 6.1 - 8.1 g/dL 09/07/2024 6:27 AM EDT [facility] ALBUMIN 4.3 3.6 - 5.1 g/dL 09/07/2024 6:27 AM EDT [facility] GLOBULIN 2.9 1.9 - 3.7 g/dL (calc) 09/07/2024 6:27 AM EDT [facility] ALBUMIN/GLOBULI N RATIO 1.5 1.0 - 2.5 (calc) 09/07/2024 6:27 AM EDT [facility] BILIRUBIN, TOTAL 0.9 0.2 - 1.2 mg/dL 09/07/2024 6:27 AM EDT [facility] ALKALINE PHOSPHATASE 93 35 - 144 U/L 09/07/2024 6:27 AM EDT [facility] AST 21 10 - 35 U/L 09/07/2024 6:27 AM EDT [facility] ALT 22 9 - 46 U/L 09/07/2024 6:27 AM EDT [facility] Blood Blood / Unknown 09/06/2024 4 :12 PM EDT 09/07/2024 4:44 AM EDT Narrative [facility] - 09/07/2024 6:48 AM EDT . Fasting reference interval . us Yun[facility] - BLOOD DRAW Final Result [facility] [address] [place] [address], [email or web address] [address] [address] * (ABNORMAL) HGBA1C W/MPG (04/28/2024 3:33 PM EDT) HEMOGLOBIN A1C 7.3(H) <5.7 % of total Hgb [facility] Comment: For someone without known diabetes, a [...] children. MEAN PLASMA GLUCOSE 183 mg/dL (calc) [facility] Blood Blood / Unknown 04/28/2024 3 :33 PM EDT 04/28/2024 3:34 PM EDT Narrative [facility] [employer] - 04/29/2024 3:13 AM EDT FASTING:NO us [facility] - BLOOD DRAW Final Result Performing Organization Address City/[facility]/ZIP Co de Phone Number adjust [address] [address], adjust [address] [address] * HISTORIC COLONOSCOPY (03/11/2024 3:00 AM EST) 03/11/2024 3:00 AM EST us Yunier [facility] PROCEDURES Final Result * COLOGUARD (10/21/2023 3:00 AM EDT) Stool Stool specimen / Unknown 10/21/2023 3:00 AM EDT us [facility] BODY FLUIDS AND STOOLS AMB ULATORY Edited Result - Final Performing Organization Address City/[facility]/ZIP Co de Phone Number [employer] [address] [place] [address], [address] [facility] [id number] [place] [address], * EYE EXAM (10/15/2023 3:00 AM EDT) 10/15/2023 3:00 AM EDT us Yunier [facility] OTHER Edited Result - Final * HEPATITIS C AB W/RFLX HCV RNA, QT, RT PCR (09/22/2023 11:35 AM EDT) Pathologist [facility] HEPATITIS C ANTIBODY NON-REACT JULIEN NON-REACT JULIEN [facility] Comment: HCV antibody was non-reactive. There is no laboratory evidence of HCV infection. In most cases, no further action is required. However, if recent HCV exposure is suspected, a test for HCV RNA (test code 46753) is suggested. For additional information please refer to http://[employer]/faq/HNB04h3 (This link is being provided for informational/ educational purposes only.) Blood Blood / Unknown 09/22/2023 1 1:35 AM EDT 09/22/2023 11:35 AM EDT [facility] - BLOOD DRAW Final Result [employer] [address] [address], [email or web address] [address] [address] * (ABNORMAL) LIPID PANEL (09/22/2023 11:35 AM EDT) [facility] CHOLESTEROL, TOTAL 131 <200 mg/dL [email or web address] HDL CHOLESTEROL 39(L) > OR = 40 mg/dL [facility] TRIGLYCERIDES 75 <150 mg/dL [facility] LDL-CHOLESTEROL 76 99 mg/dL (calc) [email or web address] Comment: Reference range: <100 Desirable range <100 mg/dL for primary prevention; <70 mg/dL for patients with CHD or diabetic patients with > or = 2 CHD risk factors. LDL-C is now calculated using the Art-Yisel calculation, which is a validated novel method providing better accuracy than the Friedewald equation in the estimation of LDL-C. Art SS et al. RAUL. 2013;310(19): 4696-9981 (http://education.[employer]/faq/RIO853) CHOL/HDLC RATIO 3.4 <5.0 (calc) [facility] NON-HDL CHOLESTEROL 92 <130 mg/dL (calc) [facility] Comment: For patients with diabetes plus 1 major ASCVD risk factor, treating to a non-HDL-C goal of <100 mg/dL (LDL-C of <70 mg/dL) is considered a therapeutic option. Blood Blood / Unknown 09/22/2023 1 1:35 AM EDT 09/22/2023 11:35 AM EDT [facility] - BLOOD DRAW Final Result adjust [address] [address], adjust [facility] [address] [place] [address] from Last 3 Months or Most Recently Relevant to Health Maintenance Insurance [employer] Care Teams Software Engineer Advisor Relationship Specialty Start Date End Date Yunier Nunes PA [address] [place] [address] PCP - General FAMILY MEDICINEREECE 09/19/23
--- OUTSIDE RECORDS SUMMARY | 2024-11-09 14:45 | XMS_ITS | Clinical Summary ---
Author Organization [facility] Address [address] [place] [address] Phone Care Team Providers Care Substance Abuse Specialist Name Role Phone Yunier Nunes Primary Care Provider [phone] Allergies Active Allergy Reactions Criticality Noted Date [...] Active pen needle, diabetic 32 gauge x 32 needle Use with pen three times daily. [...] MIN ORAL Take by mouth. Activ e acetaminophen (TYLENOL 8 HOUR) 650 mg 8 hr tablet Take 1 tablet (650 mg total) by mouth every 8 (eight) hours if needed for mild pain or moderate pain. Do not crush, chew, or split. 90 tablet 3 5 12/03/19 25 Active Active Problems Problem Noted Date Diagnosed Date Morbid obesity with BMI of 4 5.0-49.9, adult ([facility] V24, [facility] V28) 03/08/2024 Diastolic heart failure ([facility] V24, [facility] V2 8) 05/17/2020 Overview (03/08/2024): [...] Controlled NSTEMI (non-ST elevated myoc ardial infarction) ([facility] V24, [facility] V28) 05/13/2016 Overview (03/08/2024): 04/2016--s/p [...] mellitus with renal manifestations, uncontrolled(250.42) (CMS/HCC V24, CMS/HCC V28) 05/07/2005 Overview (03/08/2024): Last Assessment & Plan: Lantus Titration Protocol-Fasting blood sugar 160-180. Lantus insulin increased to 37 units. Pt will increase dose according to protocol. See note 09/17/11 Encounters Date Type Department Care Team Description 11/02/2024 2:30 PM EDT Consult Orthopedic Surgery - [place] [address] [facility] [address] [place] [phone] Lindsey Crawford MD Bilateral chronic knee pain 11/01/2024 2:00 PM EDT - 11/01/2024 11:59 PM EDT Hospital Encounter [facility] Xray [address] [place] [phone] Chronic pain of both knees Discharge Disposition: Home or Self Care 11/01/2024 Telephone Orthopedic Surgery - [place] [address] [facility] [address] [place] [phone] Nadine Dorsey MA from Last 3 Months Immunizations Immunization Administration Dates Next Due Influenza trivalent, with pr eservative (Fluzone; Afluria) 6mo and older 02/16/2016,12/15/2013,12/03/2012,12/25,11/02/2009,12/21/2007 Pneumococcal polysaccharide 23 valent (Pneumovax 23) 2yo and older 05/31/2003 Td, Unspecified 05/31/2003 Tdap Tetanus diptheria acell ular pertussis (Boostrix; Adacel) 7yo and older 03/10/2017 Surgical History Surgery Date Site/Laterality Comments COLONOSCOPY W/ POLYPECTOMY 2005 PROCEDURE: [facility] FLX W/RMVL OF TUMOR POLYP LESION SNARE TQ; COMMENT: Zeroogian; large inflammatory polyp. HERNIA REPAIR PROCEDURE: HISTORICAL HERNIA REPAIR/UMB CORONARY STENT PLACEMENT 04/27/16 [facility] PROCEDURE: STENT, CORONARY, ELOY; COMMENT: stent OM [...] obesity with BMI of 4 5.0-49.9, adult ([facility] V24, [facility] V28) 06/24/2016 DX:Morbid obesity wit h BMI of 45.0-49.9, adult ([facility]) Family History Medical History Relation [...] Safety Answer Date Record ed Physical Abuse Unrecognized value 03/11/2024 Verbal Abuse Unrecognized value 03/11/2024 Sex and Gender Information Value Date [...] EST Inhaled Oxygen Concentration - - Weight 124 kg (274 lb) 11/02/2024 2:32 PM EDT Height 167.6 cm (5' 5.98 ) 11/02/2024 2:32 PM ED T Body Mass Index 44.25 11/02/2024 2:32 PM EDT Plan of Treatment Upcoming Encounters Date Type Department Care Team (Late st Contact Info) Description 11/17/2024 9:20 AM EDT Office Visit [facility] [address] [place] [phone] Mikie Vazquez MD [address] [place] [address] [address] [place] [phone] Health Maintenance Due Date Last Done Comments Diabetes: Annual Foot Exam 1964 Diabetes: Annual Retina Eye Exam 1965 Pneumococcal Vaccine: 50+ Years (2 of 2 - PCV) 05/30/2004 05/31/2003 Social Influencers of Health Screening 01/09/2022 Diabetes: Annual Urine Albumin-Creatinine Ratio (uACR) 01/25/2022 06/10/2017 Depression Screening 02/11/2024 Influenza Vaccine (#1) 2024 , 11/20/2021, 11/23/2020, Additional history exists Diabetes: Blood Sugar Control Test (HGBA1C) 10/29/2024 04/28/2024, 01/15/2024, 09/22/2023, Additional history exists Falls Risk Assessment 03/11/2025 03/11/2024 Diabetes: Annual GFR (Glomerular Filtration Rate) 09/06/2025 09/06/2024, 01/07/2024, 09/22/2023, Additional history exists Hypertension/CHF/CAD Annual BMP Blood Test 09/06/2025 09/06/2024, 01/07/2024, 09/22/2023, Additional history exists DTaP,Tdap,and Td Vaccines (3 - Td or Tdap) 03/10/2027 03/10/2017, 05/31/2003 Cholesterol Screening (Lipid Panel) 09/21/2028 09/22/2023, 09/22/2023, 03/10/2017 Colorectal Cancer Screening: Colonoscopy 03/11/2034 03/11/2024, 05/22/2021 Zoster Vaccines Completed 07/30/2021, 04/13/2021 Hepatitis C Screening Completed 09/22/2023, 010 Colorectal Cancer Screening: FIT-DNA (Cologuard) Discontinued 10/21/2023 COVID-19 Vaccine Completed 10/26/2024, , 01/27/2023, Additional history exists RSV Immunization Adult Patients Completed 10/26/2024 HIB Vaccines Aged Out No longer eligi [...] Procedure Name Priority Date/Time Associated Diagnosis Comments XR KNEE 4+ VIEWS BILAT Routine 11/01/2024 2:20 PM EDT Chronic pain of both knees COLONOSCOPY Routine 03/11/2024 9:11 AM EST Colon cancer screening CREATININE, SERUM Routine 01/07/2024 12: 07 PM EST Diabetic glomerulopathy (CMS/HCC V24, CMS/[facility] V28) Benign hypertension Stage 3a chronic kidney disease (CMS/HCC V24, CMS/HCC V28) URINE ALBUMIN CREATININE RATIO Routine 06/10/2017 HEMOGLOBIN A1C Routine 03/10/2017 LIPID PANEL Routine 03/10/2017 HEPATITIS C SCREENING Routine 09/04/2009 from Last 3 Months or Most Recently Relevant to Health Maintenance Results * XR Knee 4+ Views bilat (11/01/2024 2:20 PM EDT) Anatomical Region Laterality Modality Lower Extremities, Knee [facility] 11/02/2024 7:08 AM EDT Impressions 11/02/2024 7:11 AM EDT Moderate to marked left and moderate right osteoarthritis -------- FINAL REPORT -------- Dictated By: Ilan Kang Dictated Date: 11/02/2024 07:08 ET Assigned Physician: Ilan Kang Reviewed and Electronically Signed By: Ilan Kang Signed Date: 11/02/2024 07:11 ET Workstation ID: [id number] Transcribed By: Self Edit Transcribed Date: 11/02/2024 07:08 ET Narrative 11/02/2024 7:11 AM EDT EXAMINATION: RIGHT KNEE LEFT KNEE CLINICAL INFORMATION: Joint pain COMPARISON: None. TECHNIQUE: 4 views right knee 4 views left knee FINDINGS: Right knee: No acute fracture or subluxation. No suspicious focal lesion. There is ossification directed away from the joint arising from the lateral right fibular head. At least moderate medial compartment narrowing with subchondral sclerosis and marginal osteophyte. There is mild to moderate narrowing with articular surface irregularity and marginal osteophyte involving the patella. There is some irregularity of the articular surfaces. There is ossification involving the posterior proximal tibia likely involving the interosseous ligament. There is no joint fluid or opaque loose body. Faint chondrocalcinosis. Reticulation in the soft tissues could be related to edema Left knee: No acute fracture or subluxation. No suspicious focal lesion. There is some ossification of the interosseous ligament. There is some reticulation of the soft tissues. Moderate to marked narrowing of the medial compartment with at least some cystic erosive change and marginal osteophyte formation. There is mild to moderate narrowing of the patellofemoral compartment. No significant joint fluid Procedure Note Ilan Kang MD - 11/02/2024 EXAMINATION: RIGHT KNEE LEFT KNEE CLINICAL INFORMATION: Joint pain COMPARISON: None. TECHNIQUE: 4 views right knee 4 views left knee FINDINGS: Right knee: No acute fracture or subluxation. No suspicious focal lesion. There isossification directed away from the joint arising from the lateral rightfibular head. At least moderate medial compartment narrowing with subchondral sclerosisand marginal osteophyte. There is mild to moderate narrowing witharticular surface irregularity and marginal osteophyte involving thepatella. There is some irregularity of the articular surfaces. There isossification involving the posterior proximal tibia likely involving theinterosseous ligament. There is no joint fluid or opaque loose body. Faint chondrocalcinosis. Reticulation in the soft tissues could be related to edema Left knee: No acute fracture or subluxation. No suspicious focal lesion.There is some ossification of the interosseous ligament. There is somereticulation of the soft tissues. Moderate to marked narrowing of the medial compartment with at least somecystic erosive change and marginal osteophyte formation. There is mild tomoderate narrowing of the patellofemoral compartment. No significant jointfluid IMPRESSION: Moderate to marked left and moderate right osteoarthritis -------- FINAL REPORT -------- Dictated By: Ilan Kang Dictated Date: 11/02/2024 07:08 ET Assigned Physician: Ilan Kang Reviewed and Electronically Signed By: Ilan Kang Signed Date: 11/02/2024 07:11 ET Workstation ID: [id number] Transcribed By: Self Edit Transcribed Date: 11/02/2024 07:08 ET Artur NEWELL IMG XR PROCEDURES Final Result * COLONOSCOPY Anesthesia - MAC; [facility] ENDOSCOPY (03/11/2024 9:11 AM EST) [...] for surveillance. Narrative 03/11/2024 9:15 AM EST [facility] GI Patient Name: Jose Maria Diaz Procedure Date: 03/11/2024 8:44 AM Date of [...] retroflexion views. Procedure Code(s): --- Professional --- 09120, Colonoscopy, flexible; with removal of tumor(s), polyp(s), or other lesion(s) by snare technique Diagnosis Code(s): --- Professional --- Z86.010, Personal history of colonic polyps D12.3, Benign neoplasm of transverse colon (hepatic flexure or splenic flexure) CPT copyright 2020 [employer]. All rights reserved. The codes documented in this report are preliminary and upon teletype adjuster review may be revised to meet current compliance requirements. Anton Palencia MD 03/11/2024 9:15:12 AM This report has been signed electronically.Anton Palencia MD Number of Addenda: 0 Note Initiated On: 03/11/2024 8:44 AM Scope In: Scope Out: Endoscopy Department at [facility] - [address] [place] [phone] Procedure Note Anton Palencia MD - 03/11/2024 [facility] GI Patient Name: Jose Maria Diaz Procedure Date: 03/11/2024 8:44 AM Date of [...] retroflexion views. Procedure Code(s): --- Professional --- 42187, Colonoscopy, flexible; with removal of tumor(s), polyp(s), or other lesion(s) by snare technique Diagnosis Code(s): --- Professional --- Z86.010, Personal history of colonic polyps D12.3, Benign neoplasm of transverse colon (hepatic flexure or splenic flexure) CPT copyright 2020 [employer]. All rights reserved. The codes documented in this report are preliminary and upon teletype adjuster reviewmay be revised to meet current compliance requirements. nAton Palencia MD 03/11/2024 9:15:12 AM This report has been signed electronically.Anton Palencia MD Number of Addenda: 0 Note Initiated On: 03/11/2024 8:44 AM Scope In: Scope Out: Endoscopy Department at [facility] - [address] [place] [phone] IMPRESSION: - One 5 mm polyp in [...] LAB CHEMISTRY METHOD 01/07/2024 6:01 PM EST [facility] eGFR 49(L) >=60 mL/min/1. 73m2 LAB CHEMISTRY METHOD 01/07/2024 6:01 PM EST [facility] Comment:Calculation based on the Chronic Kidney Disease Epidemiology Collaboration (CKD-EPI) equation refit without adjustment for race. Blood Venous blood specimen / Unknown Venipuncture / Unknown 01/07/2024 12:07 PM EST 01/07/2024 12:53 PM EST Result [facility] Gary Schmidt MD LAB BLOOD ORDERABLES Final Resul t [facility] [address] [place] [address], [place] [phone] * Urine Albumin Creatinine Ratio (06/10/2017) Pathologist Counts include 234 beds at the [facility] Urine Albumin Creatinine Ratio abstracted Result [facility] Historical Provider HEALTH MAINTENANCE Final Result * (ABNORMAL) Hemoglobin A1c (03/10/2017) Pathologist [facility] Hemoglobin A1C 10.1(A) 4.0 - 6.0 % Blood Venous blood specimen / Unknown Result [facility] Provider LAB BLOOD ORDERABLES Tanesha l Result * (ABNORMAL) Lipid panel (03/10/2017) [facility] LDL/HDL Ratio 4 0 - 4 Triglycerides 120 0 - 150 mg/dL Cholesterol 134 0 - 200 mg/dL HDL 38(A) >=40 mg/dL LDL Cholesterol 72 0 - 100 mg/dL Blood Venous blood specimen / Unknown Result [facility] Historical Provider LAB BLOOD ORDERABLES Tanesha l Result * Hepatitis C Screening (09/04/2009) Pathologist Counts include 234 beds at the [facility] Hepatitis C Screening abstracted Result [facility] Historical David RITTER HEALTH MAINTENANCE Final Result from Last 3 Months or Most Recently Relevant to Health Maintenance Insurance MEDICARE [facility]) Care Teams Substance Abuse Specialist Relationship Specialty Start Date End Date Yunier Nunes PA [address] [place] [address] PCP - General Physician [employer] 12/25/23
== END 2024-11-09 13:50 | disposition home or self-care (01) ==
LOC: HO.HKAS 13:29
PROVIDERS: Visit Provider Internal Medicine Nephrology
DX: I10 Essential (primary) hypertension (principal); N18.31 Chronic kidney disease, stage 3a; E11.21 Type 2 diabetes mellitus with diabetic nephropathy
CPT/HCPCS: 99214

== ENCOUNTER 2025-01-31 15:28 | Outpatient (REF) | payer BC, SELFPAY ==
--- OUTSIDE RECORDS SUMMARY | 2025-01-31 18:29 | XMS_ITS | Clinical Summary ---
Author Organization [facility] Address [address] [place] [phone] Phone Care Team Providers Care Mechanical Product Design Engineer Name Role Phone Jevon Adler MD Primary Care Provider [phone] Allergies Active Allergy Reactions Criticality Noted Date [...] Microalbuminuria 05/29/2021 Generalized edema 05/29/2021 Binge eating disorder, unspecified 05/07/2021 Body mass index 40+ - severely [...] 1.60(A) 0.60 - 1.30 mg/dL eGFR Non-Afr Haitian 46 ALT (SGPT) 19 U/L AST (SGOT) 21 U/L Hemoglobin A1C 6.3(A) 4.0 - 6.0 11/26/2021 [facility] Provider LAB BLOOD ORDERABLES Tanesha l Result from Last 3 Months or Most Recently Relevant to Health Maintenance Insurance [facility] Care Teams Mechanical Product Design Engineer Relationship Specialty Start Date End Date Jevon Adler MD [address] PCP - General Internal Medicine 03/28/21
--- OUTSIDE RECORDS SUMMARY | 2025-01-31 18:29 | XMS_ITS | Clinical Summary ---
Author Organization [facility] Address [address] [place] [address] Care Team Providers Care Permastone Mechanic Name Role Phone Americo Salter MD Primary Care Provider [phone] Allergies No known active allergies Social History [...] 50+ (1 of 1 - PCV) 2004 RSV Vaccine 50 years and old er and Patients (1 - Risk 50-74 years 1-dose series) 2004 Zoster (Shingles) Vaccine (1 of 2) 2004 Influenza Vaccine 09/10/2024 COVID-19 Vaccine ( - 2024-2 6 season) 2024 Hepatitis B Vaccines Aged Out No long er eligible based on patient's age to complete this topic [place] [employer] [place] [employer] [place] Care Teams Permastone Mechanic Relationship Specialty Start Date End Date Americo Salter MD [address] [place] [phone] PCP - General 04/26/16
--- OUTSIDE RECORDS SUMMARY | 2025-01-31 18:30 | XMS_ITS | Clinical Summary ---
Author Organization [facility] Address [address] [place] [address] Phone Care Team Providers Care Solution Specialist Name Role Phone Yunier Nunes Primary Care Provider [phone] Allergies Active Allergy Reactions Criticality Noted Date Comments Lactose 05/07/2021 Milk Containing Products (Dairy) 06/2013 Medications atorvastatin (LIPITOR) 40 mg tablet Take 40 [...] Active pen needle, diabetic 32 gauge x 5/32 needle Use with pen three times daily. 7 Active metoprolol tartrate (LOPRESSOR) 100 mg tablet TAKE 1 TABLET BY MOUTH TWICE A DAY 6 Active FREESTYLE LANCETS MISC by Does not apply route. use to test blood sugar tid or as directed 1 Active diabetic supplies, miscellan. [facility] BLOOD GLUCOSE CALIBRATION (FREESTYLE CONTROL SOLUTION) LIQD Test three times daily or as directed. 0 Active DAPAGLIFLOZ PROPANED-METFOR MIN ORAL Take by mouth. Activ e tirzepatide (Mounjaro) 7.5 mg/0.5 mL injection Inject 0.5 mL (7.5 mg total) under the skin every 7 (seven) days. Active losartan (COZAAR) 100 mg tablet Take 1 tablet (100 mg total) by mouth 1 (one) time each day. Active clopidogreL (PLAVIX) 75 mg tablet Take 1 tablet (75 mg total) by mouth 1 (one) time each day. Active Active Problems Problem Noted Date Diagnosed Date History of coronary angioplasty with insertion o f stent 11/17/2024 Left ventricular hypertrophy 11/17/2024 Morbid obesity with BMI of 45.0-49.9, adult [...] Encounters Date Type Department Care Team Description 11/17/2024 9:20 AM EDT Office Visit [facility] - [address] [place] [address] Mikie Vazquez MD History of coronary angioplasty with insertion of stent (Primary Dx); CKD (chronic kidney disease) stage 2, GFR 60-89 ml/min; Chronic diastolic heart failure (CMS/HCC V24, CMS/HCC V28); Essential hypertension; NSTEMI (non-ST elevated myocardial infarction) ([facility] V24, [facility] V28); Morbid obesity with BMI of 45.0-49.9, adult ([facility] V24, [facility] V28); Left ventricular hypertrophy 11/02/2024 2:30 PM EDT Consult Orthopedic Surgery [facility] 160 175 [facility] [address] [place] [phone] Lindsey Crawford MD Bilateral chronic knee pain 11/01/2024 2:00 PM EDT - 11/01/2024 11:59 PM EDT Hospital Encounter Xray [address] [place] [phone] Chronic pain of both knees Discharge Disposition: Home or Self Care 11/01/2024 Telephone Orthopedic Surgery [facility] [address] [phone] Nadine Dorsey MA from Last 3 Months Immunizations Immunization Administration Dates Next Due Influenza trivalent, with pr eservative (Fluzone; Afluria) 6mo and older 02/16/2016,12/15/2013,12/03/2012,12/25,11/02/2009,12/21/2007 Pneumococcal polysaccharide 23 valent (Pneumovax 23) 2yo and older 05/31/2003 Td, Unspecified 05/31/2003 Tdap Tetanus diptheria acell ular pertussis (Boostrix; Adacel) 7yo and older 03/10/2017 Surgical History Surgery Date Site/Laterality Comments COLONOSCOPY W/ POLYPECTOMY 2005 PROCEDURE: MD COLSC FLX W/RMVL OF TUMOR POLYP LESION SNARE TQ; COMMENT: Zeroogian; large inflammatory polyp. HERNIA REPAIR PROCEDURE: HISTORICAL HERNIA REPAIR/UMB CORONARY STENT PLACEMENT 04/27/16 [facility] PROCEDURE: STENT, CORONARY, ELOY; COMMENT: stent OM [...] obesity with BMI of 4 5.0-49.9, adult ([facility] V24, [facility] V28) 06/24/2016 DX:Morbid obesity wit h BMI of 45.0-49.9, adult ([facility]) CKD (chronic kidney disease) Influenza A Family History Medical History Relation Name Comments [...] Sign Reading Time Taken Comments Blood Pressure 130/70 11/17/2024 9:23 AM EDT Pulse 75 11/17/2024 9:23 AM EDT Temperature 36.8 C (98.2 F) 03/11/2024 9:12 AM EST Respiratory Rate 12 03/11/2024 9:32 AM EST Oxygen Saturation 97% 11/17/2024 9:23 AM EDT Inhaled Oxygen Concentration - - Weight 124 kg (273 lb) 11/17/2024 9:23 AM EDT Height 167.6 cm (5' 6 ) 11/17/2024 9:23 AM EDT Body Mass Index 44.06 11/17/2024 9:23 AM EDT Plan of Treatment Upcoming Encounters Date Type Department Care Team (Late st Contact Info) Description 03/09/2025 8:00 AM EST Ancillary Procedure [facility] - [address] [place] [address] Health Maintenance Due Date Last Done Comments Diabetes: Annual Foot Exam 1965 Diabetes: Annual Retina Eye Exam 1965 Pneumococcal Vaccine: 50+ Years (2 of 2 - PCV) 05/30/2004 05/31/2003 Social Influencers of Health Screening 01/09/2022 Diabetes: Annual Urine Albumin-Creatinine Ratio (uACR) 01/25/2022 06/10/2017 Depression Screening 02/11/2024 Diabetes: Blood Sugar Control Test (HGBA1C) 10/29/2024 04/28/2024, 01/15/2024, 09/22/2023, Additional history exists Falls Risk Assessment 03/11/2025 03/11/2024 COVID-19 Vaccine (8 - Pfizer risk season) 2025 10/26/2024, 12/10/2023, 01/27/2023, Additional history exists Diabetes: Annual GFR (Glomerular Filtration Rate) 09/06/2025 [...] Colorectal Cancer Screening: FIT-DNA (Cologuard) Discontinued 10/21/2023 Influenza Vaccine Completed 10/26/2024, , 11/20/2021, Additional history exists RSV Immunization Adult Patients [...] chronic kidney disease (CMS/HCC V24, CMS/HCC V28) HM URINE ALBUMIN CREATININE RATIO Routine 06/10/2017 HEMOGLOBIN A1C Routine 03/10/2017 LIPID PANEL Routine 03/10/2017 HEPATITIS C SCREENING Routine 09/04/2009 from Last 3 Months or Most Recently Relevant to Health Maintenance Results * XR Knee 4+ Views bilat (11/01/2024 2:20 PM EDT) Anatomical Region Laterality Modality Lower Extremities, Knee Bilateral Radiogra phic Imaging 11/02/2024 7:08 AM EDT Impressions 11/02/2024 7:11 AM EDT Moderate to marked left and moderate right osteoarthritis -------- FINAL REPORT -------- Dictated By: Ilan Kang Dictated Date: 11/02/2024 07:08 ET Assigned Physician: Ilan Kang Reviewed and Electronically Signed By: Ilan Kang Signed Date: 11/02/2024 07:11 ET Workstation ID: [id number] Transcribed By: Self Edit Transcribed Date: 11/02/2024 [...] Signed Date: 11/02/2024 07:11 ET Workstation ID: [id number] Transcribed By: Self Edit Transcribed Date: 11/02/2024 07:08 ET Artur NEWELL IM XR PROCEDURES Final Result * COLONOSCOPY Anesthesia - MAC; [facility] ENDOSCOPY (03/11/2024 9:11 AM EST) Anatomical [...] for surveillance. Narrative 03/11/2024 9:15 AM EST GI Patient Name: Jose Maria Diaz Procedure [...] retroflexion views. Procedure Code(s): --- Professional --- 46282, Colonoscopy, flexible; with removal of tumor(s), polyp(s), or other lesion(s) by snare technique Diagnosis Code(s): --- Professional --- Z86.010, Personal history of colonic polyps D12.3, Benign neoplasm of transverse colon (hepatic flexure or splenic flexure) CPT copyright 202 [employer]. All rights reserved. The codes documented in this report are preliminary and upon produce assistant review may be revised to meet current compliance requirements. Anton Palencia MD 03/11/2024 9:15:12 AM This report has been signed electronically.Anton Palencia MD Number of Addenda: 0 Note Initiated On: 03/11/2024 8:44 AM Scope In: Scope Out: Endoscopy Department at - [address] [place] [phone] Procedure Note Anton Palencia MD - 03/11/2024 GI Patient Name: Jose Maria Diaz Procedure [...] retroflexion views. Procedure Code(s): --- Professional --- 60907, Colonoscopy, flexible; with removal of tumor(s), polyp(s), or other lesion(s) by snare technique Diagnosis Code(s): --- Professional --- Z86.010, Personal history of colonic polyps D12.3, Benign neoplasm of transverse colon (hepatic flexure or splenic flexure) CPT copyright 2020 [employer]. All rights reserved. The codes documented in this report are preliminary and upon produce assistant reviewmay be revised to meet current compliance requirements. Anton Palencia MD 03/11/2024 9:15:12 AM This report has been signed electronically.Anton Palencia MD Number of Addenda: 0 Note Initiated On: 03/11/2024 8:44 AM Scope In: Scope Out: Endoscopy Department at - [address] [place] [phone] IMPRESSION: - One 5 mm polyp in [...] LAB CHEMISTRY METHOD 01/07/2024 6:01 PM EST [facility] eGFR 49(L) >=60 mL/min/1. 73m2 LAB CHEMISTRY METHOD 01/07/2024 6:01 PM EST [facility] Comment:Calculation based on the Chronic Kidney Disease Epidemiology Collaboration (CKD-EPI) equation refit without adjustment for race. Blood Venous blood specimen / Unknown Venipuncture / Unknown 01/07/2024 12:07 PM EST 01/07/2024 12:53 PM EST Result [facility] Gary Schmidt MD LAB BLOOD ORDERABLES Final Resul t [facility] [address] [place] [address], * Urine Albumin Creatinine Ratio (06/10/2017) Pathologist Replaced by [facility] Urine Albumin Creatinine Ratio abstracted Result [facility] David RITTER HEALTH MAINTENANCE Final Result * (ABNORMAL) Hemoglobin A1c (03/10/2017) Pathologist [facility] Hemoglobin A1C 10.1(A) 4.0 - 6.0 % Blood Venous blood specimen / Unknown Result [facility] Provider LAB BLOOD ORDERABLES Tanesha l Result * (ABNORMAL) Lipid panel (03/10/2017) LDL/HDL Ratio 4 0 - 4 Triglycerides 120 0 - 150 mg/dL Cholesterol 134 0 - 200 mg/dL HDL 38(A) >=40 mg/dL LDL Cholesterol 72 0 - 100 mg/dL Blood Venous blood specimen / Unknown Result [facility] Historical David RITTER LAB BLOOD ORDERABLES Tanesha l Result * Hepatitis C Screening (09/04/2009) Hepatitis C Screening abstracted us Historical Provider HEALTH MAINTENANCE Final Result from Last 3 Months or Most Recently Relevant to Health Maintenance Insurance MEDICARE [facility] ([facility]) Care Teams Solution Specialist Relationship Specialty Start Date End Date Yunier Nunes PA [address] [place] [address] PCP - General Physician Blueprint Developer 12/25/23
[2025-01-31 18:36] LABS: Anion Gap 12 (12-20); Blood Urea Nitrogen 26 mg/dL (9-16); Carbon Dioxide 28 mmol/L (22-29); Chloride 106 mmol/L (96-108); Estimated Glomerular Filt Rate 47; Potassium 4.3 mmol/L (3.3-5.1); Sodium 142 mmol/L (135-145)
== END 2025-01-31 15:29 | disposition home or self-care (01) ==
LOC: HO.HKASLDS 15:28
PROVIDERS: Visit Provider Internal Medicine Nephrology
DX: E11.22 Type 2 diabetes mellitus with diabetic chronic kidney disease (principal); I12.9 Hypertensive chronic kidney disease with stage 1 through stage 4 chronic kidney disease, or unspecified chronic kidney disease; N18.31 Chronic kidney disease, stage 3a; E11.21 Type 2 diabetes mellitus with diabetic nephropathy; R80.8 Other proteinuria
CPT/HCPCS: 36415; 80051; 82565; 84520

== ENCOUNTER 2025-02-01 15:05 | Outpatient (AMB) | payer BC, SELFPAY ==
--- NOTE | 2025-02-01 16:04 | HO.NEPHOV_ITS ---
Vital Signs 02/01/25 16:05 Height 5 ft 8 in Weight 265 lb BMI 40.3 BP 114/72 Blood Pressure Location Lt brachial Position Sitting Pulse 62 Pulse Source Pulse Oximeter Pulse Oximetry (%) 97 Oxygen Delivery Method Room Air Intake Visit Reasons: 3mnth-conf Front End Ui Developer Required: No Accompanied by: Self / Same As Patient Allergies irbesartan Allergy (Verified 02/01/25 16:07) Unknown lactose Allergy (Verified 02/01/25 16:07) Unknown latex Allergy (Verified 02/01/25 16:07) Unknown lisinopril Allergy (Verified 02/01/25 16:07) Unknown naproxen Allergy (Verified 02/01/25 16:07) Unknown HPI Comments Details: Alcides was seen in follow-up of his chronic kidney disease on a backdrop of diabetes mellitus, hypertension and proteinuria. He is employed and is active. He has a very strong family history of end-stage renal disease and expressed his fears of needing dialysis. He refrains from nonsteroidal anti-inflammatory use. He does not have any chest pain, shortness of breath, proximal nocturnal dyspnea, orthopnea, pedal edema, orthostatic symptoms, hematuria, dysuria. His blood sugar control is better but not optimal. He has H/O of gout and was treated with colchicine. He claims to be compliant with his medications. He maintains good hydration. He denied any active systemic symptoms. [facility] Medical History (Updated 03/13/23 @ 22:12 by Gary Schmidt MD) Hypertension Proteinuria T2DM (type 2 diabetes mellitus) Chronic kidney disease, stage 3a Surgical History History of gastric bypass Family History Brother Diabetes Kidney disease Mother Diabetes Social History Alcohol intake: never Patient Tobacco Use Status: Never used Tobacco Review of Systems Const All systems reviewed & are unremarkable except as noted in HPI and below Physical Exam Vital Signs: Last Vital Signs Pulse 62 02/01/25 16:05 BP 114/72 02/01/25 16:05 Pulse Ox 97 02/01/25 16:05 Oxygen Delivery Method Room Air 02/01/25 16:05 BMI result Body Mass Index 40.3 Const General: comfortable and no acute distress Orientation/consciousness: patient oriented x3 HEENT Head: Yes normocephalic Mouth: Normal oral and palatal mucosa present Eyes EOM: EOMs intact bilaterally Neck Neck: Yes supple Resp Auscultation: clear to auscultation bilaterally Cardio Jugular venous distension: no JVD Rate: regular rate GI Palpation (GI): Soft to palpation Auscultation: normal bowel sounds General: Yes no CVA tenderness Back/Spine/Pelvis Back: no CVA tenderness Skin General skin exam: no rashes or lesions noted Neuro General: patient oriented x3 and moves all extremities Extrem General: Yes no pedal edema Results Reviewed Nephrology Results: Sodium, (135-145) 142 mmol/L 01/31/25 Potassium, (3.3-5.1) 4.3 mmol/L 01/31/25 Chloride, (96-108) 106 mmol/L 01/31/25 Carbon Dioxide, (22-29) 28 mmol/L 01/31/25 BUN, (9-16) 26 mg/dL H 01/31/25 Creatinine, (0.5-1.4) 1.48 mg/dL H 01/31/25 Urine Creatinine 43.98 mg/dL 11/04/24 Protein/Creatinin Ratio, (<0.2) 0.64 H 11/04/24 Assessment & Plan Assessment & Plan (1) Chronic kidney disease, stage 3a: Code(s): N18.31 - Chronic kidney disease, stage 3a Category: Medical (2) Diabetic nephropathy: Code(s): E11.21 - Type 2 diabetes mellitus with diabetic nephropathy Category: Medical Qualifiers: Diabetes mellitus type: type 2 Qualified Code(s): E11.21 - Type 2 diabetes mellitus with diabetic nephropathy (3) Proteinuria: Code(s): R80.9 - Proteinuria, unspecified Category: Medical Qualifiers: Proteinuria type: other Qualified Code(s): R80.8 - Other proteinuria (4) Hypertension: Code(s): I10 - Essential (primary) hypertension Category: Medical Qualifiers: Hypertension type: primary hypertension Qualified Code(s): I10 - Essential (primary) hypertension Plan Alcides has stage 3 chronic kidney disease from diabetic nephropathy. His blood pressure needs to be maintained at goal. He is on angiotensin receptor winsome. He should continue losartan 100 mg daily. He is tolerating Farxiga. He needs to lose weight. He avoids nonsteroidal anti-inflammatories. He maintains good hydration. I did not make any other medication changes today. Follow-up lab work ordered. Answered all questions. Follow-up given Orders: Orders Protein Creatinine Ratio, Ur 3 Months E11.21 - Type 2 diabetes mellitus with diabetic nephropathy, I10 - Essential (primary) hypertension, N18.31 - Chronic kidney disease, stage 3a, R80.8 - Other proteinuria Electrolytes 3 Months E11.21 - Type 2 diabetes mellitus with diabetic nephropathy, I10 - Essential (primary) hypertension, N18.31 - Chronic kidney disease, stage 3a, R80.8 - Other proteinuria Blood Urea Nitrogen 3 Months E11.21 - Type 2 diabetes mellitus with diabetic nephropathy, I10 - Essential (primary) hypertension, N18.31 - Chronic kidney disease, stage 3a, R80.8 - Other proteinuria Creatinine 3 Months E11.21 - Type 2 diabetes mellitus with diabetic nephropathy, I10 - Essential (primary) hypertension, N18.31 - Chronic kidney disease, stage 3a, R80.8 - Other proteinuria Coding Level of Care Code Est Pt Level 4 (76051) Diagnoses Chronic kidney disease, stage 3a N18.31 Diabetic nephropathy associated with type 2 diabetes mellitus E11.21 Diabetes mellitus type: type 2 Other proteinuria R80.8 Proteinuria type: other Primary hypertension I10 Hypertension type: primary hypertension
[2025-02-01 16:05] VITALS: BP 114/72; PULSE 62; O2SAT 97; BMI 40.3
--- OUTSIDE RECORDS SUMMARY | 2025-02-01 16:23 | XMS_ITS | Clinical Summary ---
Author Organization [facility] Address [address] [place] [address] Phone Care Team Providers Care Flanger Name Role Phone Yunier Nunes Primary Care Provider [phone] Allergies Active Allergy Reactions Criticality Noted Date [...] as directed 1 Active diabetic supplies, miscellan. [facility] BLOOD GLUCOSE CALIBRATION (FREESTYLE CONTROL SOLUTION) LIQD [...] Description 11/17/2024 9:20 AM EDT Office Visit [facility] - [address] [place] [address] Mikie Vazquez MD History of coronary angioplasty with insertion of stent (Primary Dx); CKD (chronic kidney disease) stage 2, GFR 60-89 ml/min; Chronic diastolic heart failure (CMS/HCC V24, CMS/HCC V28); Essential hypertension; NSTEMI (non-ST elevated myocardial infarction) ([facility] V24, [facility] V28); Morbid obesity with BMI of 45.0-49.9, adult ([facility] V24, [facility] V28); Left ventricular hypertrophy 11/02/2024 2:30 PM EDT Consult Orthopedic Surgery - [place] [address] [facility] [address] [place] [address] Lindsey Crawford MD Bilateral chronic knee pain from Last 3 Months Immunizations Immunization Administration Dates Next Due Influenza trivalent, with pr eservative (Fluzone; Afluria) 6mo and older 02/16/2016,12/15/2013,12/03/2012,12/25,11/02/2009,12/21/2007 Pneumococcal polysaccharide 23 valent (Pneumovax 23) 2yo and older 05/31/2003 Td, Unspecified 05/31/2003 Tdap Tetanus diptheria acell ular pertussis (Boostrix; Adacel) 7yo and older 03/10/2017 Surgical History Surgery Date Site/Laterality Comments COLONOSCOPY W/ POLYPECTOMY 2005 PROCEDURE: DC COLSC FLX W/RMVL OF TUMOR POLYP LESION SNARE TQ; COMMENT: Zeroogian; large inflammatory polyp. HERNIA REPAIR PROCEDURE: HISTORICAL HERNIA REPAIR/UMB CORONARY STENT PLACEMENT 04/27/16 [facility] PROCEDURE: STENT, CORONARY, ELOY; COMMENT: [...] obesity with BMI of 4 5.0-49.9, adult ([facility] V24, [facility] V28) 06/24/2016 DX:Morbid obesity wit h BMI of 45.0-49.9, adult ([facility]) CKD (chronic kidney disease) Influenza [...] Description 03/09/2025 8:00 AM EST Ancillary Procedure [facility] - [facility] [address] [facility] [address] [place] [address] Health Maintenance Due Date Last [...] 01/07/2024 12: 07 PM EST Diabetic glomerulopathy ([facility]/HCC V24, [facility] V28) Benign hypertension Stage 3a chronic kidney disease ([facility]/HCC V24, CMS/HCC V28) HM URINE ALBUMIN CREATININE RATIO Routine 06/10/2017 HEMOGLOBIN A1C Routine 03/10/2017 LIPID PANEL Routine 03/10/2017 HM HEPATITIS C SCREENING Routine 09/04/2009 from Last 3 Months or Most Recently Relevant to Health Maintenance Results * COLONOSCOPY Anesthesia - MAC; [facility] ENDOSCOPY (03/11/2024 9:11 AM EST) Anatomical Region [...] [facility] GI Patient Name: Alcides Diaz Procedure Date: 03/11/2024 8:44 AM Date [...] retroflexion views. Procedure Code(s): --- Professional --- 78203, Colonoscopy, flexible; with removal of tumor(s), polyp(s), or other lesion(s) by snare technique Diagnosis Code(s): --- Professional --- Z86.010, Personal history of colonic polyps D12.3, Benign neoplasm of transverse colon (hepatic flexure or splenic flexure) CPT copyright 2020 [employer]. All rights reserved. The codes documented in this report are preliminary and upon metal bumper review may be revised to meet current compliance requirements. Anton Palencia MD 03/11/2024 9:15:12 AM This report has been signed electronically.Anton Palencia MD Number of Addenda: 0 Note Initiated On: 03/11/2024 8:44 AM Scope In: Scope Out: Endoscopy Department at [facility] - [address] [place] [phone] Procedure Note Anton Palencia MD - 03/11/2024 [facility] GI Patient Name: Alcides Diaz Procedure Date: 03/11/2024 8:44 AM Date [...] retroflexion views. Procedure Code(s): --- Professional --- 47564, Colonoscopy, flexible; with removal of tumor(s), polyp(s), or other lesion(s) by snare technique Diagnosis Code(s): --- Professional --- Z86.010, Personal history of colonic polyps D12.3, Benign neoplasm of transverse colon (hepatic flexure or splenic flexure) CPT copyright 2020 [employer]. All rights reserved. The codes documented in this report are preliminary and upon metal bumper reviewmay be revised to meet current compliance requirements. Anton Palencia MD 03/11/2024 9:15:12 AM This report has been signed electronically.Anton Palencia MD Number of Addenda: 0 Note Initiated On: 03/11/2024 8:44 AM Scope In: Scope Out: Endoscopy Department at [facility] - [address] [place] [phone] IMPRESSION: - One 5 mm polyp in the transverse colon, removed with a cold snare. Resected and retrieved. - The examination was otherwise normal on directand retroflexion views. Recommendation: - Await pathology results. - Repeat colonoscopy in 5 years for surveillance. Anton Palencia MD GI~PROCEDURE ORDERABLES Fin al Result * (ABNORMAL) Creatinine (01/07/2024 12:07 PM EST) [facility] Creatinine 1.53(H) 0.70 - 1.30 mg/dL LAB CHEMISTRY METHOD 01/07/2024 6:01 PM EST [facility] eGFR 49(L) >=60 mL/min/1. 73m2 LAB CHEMISTRY METHOD 01/07/2024 6:01 PM EST [facility] Comment:Calculation based on the Chronic Kidney Disease Epidemiology Collaboration (CKD-EPI) equation refit without adjustment for race. Blood Venous blood specimen / Unknown Venipuncture / Unknown 01/07/2024 12:07 PM EST 01/07/2024 12:53 PM EST Result [facility] Gary Schmidt MD LAB BLOOD ORDERABLES Final Resul t [facility] [address] [place] [address], [place] [phone] * HM Urine Albumin Creatinine Ratio (06/10/2017) Pathologist [facility] Urine Albumin Creatinine Ratio abstracted Result [facility] Historical Provider HEALTH MAINTENANCE Final Result * (ABNORMAL) Hemoglobin A1c (03/10/2017) [facility] Hemoglobin A1C 10.1(A) 4.0 - 6.0 % Blood Venous blood specimen / Unknown Result [facility] Historical Provider LAB BLOOD ORDERABLES Tanesha l Result * (ABNORMAL) Lipid panel (03/10/2017) [facility] LDL/HDL Ratio 4 0 - 4 Triglycerides 120 0 - 150 mg/dL Cholesterol 134 0 - 200 mg/dL HDL 38(A) >=40 mg/dL LDL Cholesterol 72 0 - 100 mg/dL Blood Venous blood specimen / Unknown Result [facility] Historical Provider LAB BLOOD ORDERABLES Tanesha l Result * Hepatitis C Screening (09/04/2009) Hepatitis C Screening abstracted Historical Provider HEALTH MAINTENANCE Final Result from Last 3 Months or Most Recently Relevant to Health Maintenance Insurance MEDICARE [facility] IN ([facility]) Care Teams Flanger Relationship Specialty Start Date End Date Yunier Nunes PA [address] [place] [address] PCP - General Physician Management Psychologist 12/25/23
--- OUTSIDE RECORDS SUMMARY | 2025-02-01 16:23 | XMS_ITS | Clinical Summary ---
Author Organization [facility] Address [address] [place] [phone] Phone Care Team Providers Care Logistics Officer Name Role Phone Jevon Adler MD Primary Care Provider [phone] Allergies Active Allergy Reactions Criticality Noted Date [...] 1.60(A) 0.60 - 1.30 mg/dL eGFR Non-Afr Moroc[place] 46 ALT (SGPT) 19 U/L AST (SGOT) 21 U/L Hemoglobin A1C 6.3(A) 4.0 - 6.0 11/26/2021 [facility] Provider LAB BLOOD ORDERABLES Tanesha l Result from Last 3 Months or Most Recently Relevant to Health Maintenance Insurance [facility] Care Teams Logistics Officer Relationship Specialty Start Date End Date Jevon Adler MD [address] PCP - General Internal Medicine 03/28/21
--- OUTSIDE RECORDS SUMMARY | 2025-02-01 16:23 | XMS_ITS | Clinical Summary ---
Author Organization [facility] Address [address] [place] [address] Care Team Providers Care Kitchen Runner Name Role Phone Americo Salter MD Primary Care Provider [phone] Allergies No known active allergies Social History [...] patient's age to complete this topic Insurance [employer] [place] Care Teams Kitchen Runner Relationship Specialty Start Date End Date Americo Salter MD [address] [place] [id number] PCP - General 04/26/16
== END 2025-02-01 16:20 | disposition home or self-care (01) ==
LOC: HO.HKAS 15:05
PROVIDERS: Visit Provider Internal Medicine Nephrology
DX: N18.31 Chronic kidney disease, stage 3a (principal); E11.21 Type 2 diabetes mellitus with diabetic nephropathy; R80.8 Other proteinuria; I10 Essential (primary) hypertension
CPT/HCPCS: 99214